=== PATIENT | male | born 1970 | race Caucasian/White ===

== ENCOUNTER 2021-05-07 11:33 | Outpatient (REF) | payer BC, SELFPAY ==
[2021-05-07 14:01] LABS: MANUAL DIFF FLAG NO
[2021-05-07 14:11] LABS: Basophils Percent Auto 0.3 % (0-2); Eosinophils Absolute Auto 0.1 X10*3/uL (0.0-0.4); Eosinophils Percent Auto 1.2 % (0-4); Hematocrit 44.8 % (42-52); Hemoglobin 15.4 g/dl (14.0-18.0); Imm Gran Abs Auto 0.03 X10*3/uL (0.00-0.03); Imm Gran Pct Auto 0.3 % (0.0-0.4); Lymphocytes Absolute Auto 2.9 X10*3/uL (1.2-4.9); Lymphocytes Percent Auto 31.9 % (20-40); Mean Corpuscular HGB Conc 34.4 g/dl (31.0-36.0); Mean Corpuscular Hemoglobin 33.3 pg (27.0-33.0); Mean Corpuscular Volume 96.8 fL (80-98); Mean Platelet Volume 9.5 fL (9.4-12.4); Monocytes Absolute Auto 0.5 X10*3/uL (0.1-1.2); Monocytes Percent Auto 5.9 % (2-11); Neutrophils Absolute Auto 5.4 X10*3/uL (2.0-8.3); Neutrophils Percent Auto 60.4 % (45-73); Platelet Count 277 X10*3/uL (160-400); Red Blood Count 4.63 X10*6/uL (4.60-5.80); Red Cell Distribution Width 11.6 % (11.0-16.0)
[2021-05-07 14:32] LABS: Alanine Aminotransferase 14 U/L (0-40); Albumin Level 4.4 g/dL (3.5-5.0); Alkaline Phosphatase 63 U/L (39-117); Anion Gap 13 (12-20); Aspartate Amino Transferase 22 U/L (5-37); Bilirubin Total 0.9 mg/dL (0.0-1.0); Blood Urea Nitrogen 9 mg/dL (9-16); Calcium 9.9 mg/dL (8.4-10.2); Carbon Dioxide 28 mmol/L (22-29); Chloride 101 mmol/L (96-108); Cholesterol 207 mg/dL; Estimated Glomerular Filt Rate > 60; Glucose Random 82 mg/dL (60-115); HDL Cholesterol 87 mg/dL; LDL Cholesterol Calculated 99 mg/dl; Potassium 4.2 mmol/L (3.3-5.1); Sodium 138 mmol/L (135-145); Total Protein 6.8 g/dL (6.5-8.0); Triglycerides 107 mg/dL
[2021-05-07 14:55] LABS: Folate 18.6 ng/mL (> or = 4.0); Vitamin B12 550 pg/mL (200-900)
[2021-05-07 15:01] LABS: Free T4 (Free Thyroxine) 0.89 ng/dL (0.71-1.85); Prostate Specific Antigen Scr 1.34 ng/mL (<0.05-4.0); Thyroid Stimulating Hormone 1.11 uIU/mL (0.32-4.0)
[2021-05-07 15:10] LABS: Erythrocyte Sedimentation Rate 2 MM/HR (0-15)
== END 2021-05-07 11:34 | disposition home or self-care (01) ==
LOC: HO.LAB 11:33
PROVIDERS: PCP Internal Medicine; Visit Provider Internal Medicine
DX: Z12.5 Encounter for screening for malignant neoplasm of prostate (principal); I10 Essential (primary) hypertension; E78.00 Pure hypercholesterolemia, unspecified
CPT/HCPCS: 36415; 80053; 80061; 82607; 82746; 84153; 84439; 84443; 85025; 85652

== ENCOUNTER 2021-09-03 14:15 | Outpatient (REF) | payer BC, SELFPAY ==
--- NOTE | ~2021-09-03 | MR_ITS ---
EXAMINATION: MR LUMBAR SPINE WITHOUT CONTRAST CLINICAL INFORMATION: Lower back pain. COMPARISON: Lumbar spine radiographs dated 12/03/2015 TECHNIQUE: MRI of the lumbar spine was obtained using routine sequences without contrast. FINDINGS: VERTEBRAL BODIES AND PARASPINAL STRUCTURES: The lumbar lordosis is maintained. There is Castellvi type IIA transitional anatomy at the lumbosacral junction. No acute fracture or subluxation. No loss of vertebral body height. Multilevel loss of intervertebral disc height with disc desiccation throughout the visualized lower thoracic and lumbar spine. Modic type II degenerative endplate changes at L1-L2 and L2-L3 as well as more minimally at L3-L4. No evidence of acute osseous injury. The visualized paraspinal soft tissues are unremarkable. CONUS MEDULLARIS AND CAUDA EQUINA: Normal, terminating at the level of T12. SPINAL LEVELS: T12-L1: Shallow broad-based disc bulge with a superimposed left paracentral/subarticular disc protrusion which abuts the exiting left T12 nerve root. Bilateral facet arthropathy with mild left neural foraminal stenosis. L1-L2: Mild broad-based disc bulge with a shallow right paracentral disc protrusion and associated annular fissuring. Bilateral facet arthropathy without significant central canal or neural foraminal stenosis. L2-L3: Shallow broad-based disc bulge with posterior annular fissuring as well as a superimposed left subarticular/extraforaminal disc protrusion which abuts the exiting left L2 nerve root. Bilateral facet arthropathy with bhsk-[id number] left and mild right neural foraminal stenosis. L3-L4: Broad-based disc bulge with posterior annular fissuring and superimposed bilateral subarticular disc protrusions which abut the exiting bilateral L3 nerve roots. Bilateral facet arthropathy and thickening of the ligamentum flavum with moderate bilateral neural foraminal stenosis. L4-L5: Broad-based disc bulge with posterior annular fissuring and bilateral facet arthropathy causing [id number] bilateral neural foraminal stenosis. L5-S1: Tiny posterior central disc protrusion. Mild bilateral facet arthropathy. No significant central canal or neural foraminal stenosis. MR/MR lumbar spine wo con IMPRESSION: 1. Broad-based disc bulge at L3-L4 with annular fissuring and bilateral subarticular disc protrusions which abut the exiting bilateral L3 nerve roots. In combination with bilateral facet arthropathy and thickening of the ligamentum flavum, this causes moderate bilateral neural foraminal stenosis. 2. Shallow broad-based disc bulge at L2-L3 with annular fissuring and a left subarticular/extraforaminal disc protrusion which abuts the exiting left L2 nerve root. In combination with bilateral facet arthropathy, this causes nklb-mh-ktzlzabt left and mild right neural foraminal stenosis. 3. Shallow broad-based disc bulge at T12-L1 with a left paracentral/subarticular disc protrusion which abuts the exiting left T12 nerve root. In combination with bilateral facet arthropathy, this causes mild left neural foraminal stenosis. 4. Broad-based disc bulge at L4-L5 with posterior annular fissuring and bilateral facet arthropathy which causes [id number]-wn-[id number] bilateral neural foraminal stenosis.
== END 2021-09-03 14:16 | disposition home or self-care (01) ==
LOC: HO.MRI 14:15
PROVIDERS: PCP Internal Medicine; Visit Provider Nurse Practitioner Family
DX: M54.50 Low back pain, unspecified (principal); G89.29 Other chronic pain
CPT/HCPCS: 72148

== ENCOUNTER 2021-09-24 15:00 | Outpatient (RCR) | payer BC, SELFPAY | END 2021-11-02 12:00 | disposition home or self-care (01) | LOC: HO.PTCHIC 15:00 | PROVIDERS: PCP Internal Medicine; Visit Provider Nurse Practitioner Family | DX: M54.50 Low back pain, unspecified (principal); G89.29 Other chronic pain | CPT/HCPCS: 97014; 97110; 97140; 97162 ==

== ENCOUNTER 2021-12-15 08:47 | Day surgery (SDC) | payer BC, SELFPAY ==
--- NOTE | 2021-12-14 10:39 | HO.ANESPROP2 ---
Documented by User: Ana Lr NP 12/14/21 10:39 HPI - Anesthesia Eval Consult details Narrative: 51yo M for Colonoscopy PMFSH Active Problems Active Problems: All Active Problems (Updated 11/03/21 @ 12:40 by Ada Flores MD) Lumbar degenerative disc disease (Acute) Generalized anxiety disorder (Acute) Epigastric pain (Acute) Hand numbness (Acute) Tobacco abuse (Acute) Hypertension (Acute) Overweight (BMI 25.0-29.9) (Acute) Past Medical History Medical History Degenerative disc disease Fracture of right tibia and fibula Hypertension Overweight (BMI 25.0-29.9) Right rib fracture Tobacco abuse Vitamin D deficiency Family History Family History Mother Lung cancer History of [facility] Father Prostate cancer Sister Auto immune neutropenia Sister No problems noted. Brother Heart attack Daughter No problems noted. Surgical History Surgical History Hx of colonoscopy S/P cervical spinal fusion S/P ORIF (open reduction internal fixation) fracture S/P surgical removal of pilonidal cyst Social History Social History Housing: Apartment Alcohol intake: current Alcohol intake frequency: does not drink Patient Tobacco Use Status: Current everyday Tobacco user Tobacco use type: Cigarette Cigarettes Per Day: 20 e-Cigarette/Vaping Use: Never Used Second Hand Smoke Exposure: Yes Use of substances other than those prescribed or required for medical reasons: No Are you DNR?: No Advance Directives: No Advance Directives Information Provided: Yes Advance Directives on File: No service: No Current occupational status: employed Meds Allergies Allergy/AdvReac Type Severity Reaction Status Date / Time hydrochlorothiazide Allergy Unknown Rash Verified 11/18/21 16:08 oxycodone [From OxyContin] Allergy Itching Verified 11/18/21 16:08 Home Medications Medication Instructions Recorded Confirmed Last Taken Type fagjdghh-gjx-kwxef acid 300 1 tab PO DAILY 08/24/21 11/18/21 Unknown History mcg-lycopene 600 mcg-lutein 300 mcg tablet (Centrum Silver Men) Exam Exam Date and Time: December 14, 2021 1039 Assessment and Plan Assessment Anesthesia Assessment: Chart Reviewed Documented by User: Maria E Armstrong MD 12/15/21 09:53 PENDING SALE TO [facility] Past Medical History Medical History Degenerative disc disease Fracture of right tibia and fibula Hypertension Overweight (BMI 25.0-29.9) Right rib fracture Tobacco abuse Vitamin D deficiency Functional capacity: independent ambulation Family History Family History Mother Lung cancer History of [facility] Father Prostate cancer Sister Auto immune neutropenia Sister No problems noted. Brother Heart attack Daughter No problems noted. Family history of problems with anesthesia: No Surgical History Surgical History Hx of colonoscopy S/P cervical spinal fusion S/P ORIF (open reduction internal fixation) fracture S/P surgical removal of pilonidal cyst History of Problems with Anesthesia: No Social History Social History Housing: Apartment Alcohol intake: current Alcohol intake frequency: does not drink Patient Tobacco Use Status: Current everyday Tobacco user Tobacco use type: Cigarette Cigarettes Per Day: 20 e-Cigarette/Vaping Use: Never Used Second Hand Smoke Exposure: Yes Use of substances other than those prescribed or required for medical reasons: No Are you DNR?: No Advance Directives: No Advance Directives Information Provided: Yes Advance Directives on File: No service: No Current occupational status: employed Meds Allergies Allergy/AdvReac Type Severity Reaction Status Date / Time hydrochlorothiazide Allergy Unknown Rash Verified 11/18/21 16:08 oxycodone [From OxyContin] Allergy Itching Verified 11/18/21 16:08 Home Medications Medication Instructions Recorded Confirmed Last Taken Type rotpxjvt-nte-ficqm acid 300 1 tab PO DAILY 08/24/21 11/18/21 Unknown History mcg-lycopene 600 mcg-lutein 300 mcg tablet (Centrum Silver Men) Exam Airway Mallampati Class: III TM Dist: >3cm Neck ROM: Full Heart: RRR Lungs: CTA Assessment and Plan Final Anesthetic Review Family History of Problems with Anesthesia: No History of Problems with Anesthesia: No ASA Class: II Final Preanesthetic Review: No Changes in Pt Med Stat, Meds/Allgs Chart Reviewed, Consent Obtained/Reviewed and Anes Risks/Benef Reviewed Patient Risk: Low Procedure Risk: Low Anesthetic Plan Anesthetic Plan: MAC: Disposition: Standard PACU
[2021-12-15 08:54] VITALS: BMI 29.5
[2021-12-15 09:06] VITALS: BP 129/80; PULSE 61; RESP 16; TEMP 37.4; O2SAT 100
[2021-12-15] MEDS: Lactated Ringers 1,000 ML 100 ML IVCONT (09:10)
--- NOTE | 2021-12-15 09:37 | MHC.SHP ---
Pre-Procedural Eval Section A Date of Service: 12/15/21 Section B Chief Complaint: Hemorrhage of Anus and Rectum Details of Present Illness: See H&P no changes Relevant Family History (Specify if Yes): No Relevant Social History: None Present Medications: see Short Stay Collaborative assessment Medical History: No relevant PMH Allergies: Allergies Allergy/AdvReac Type Severity Reaction Status Date / Time hydrochlorothiazide Allergy Unknown Rash Verified 11/18/21 16:08 oxycodone [From OxyContin] Allergy Itching Verified 11/18/21 16:08 Review of Systems Sugical H&P ROS: Negative: Constitution, Cardiovascular, Respiratory, Neurological, Psychiatric, Hem-Onc, Allergic/Immunologic, Gastrointestinal, Genitourinary, Musculoskeletal, Integumentary, Endocrine and Eyes/Ears/Nose/Throat Exam Surgical H&P Exam: Normal: HEENT, Normal: Heart, Normal: Lungs, Normal: Extremities, Normal: Abdomen, Normal: Skin and Normal: Neurological Plan Diagnosis/Plan: Unchanged I have reviewed the history and physical and performed a pertinent physical examination on my patient. No changes have occurred unless specified.
[2021-12-15 10:03] VITALS: BP 109/69; PULSE 79; RESP 16; TEMP 36.6; O2SAT 95
--- NOTE | 2021-12-15 10:05 | P.BOP_ITS ---
Brief Operative Note Date of Service: 12/15/21 Pre-op diagnosis: rectal bleeding Post-op diagnosis: same Procedure: colonoscopy Surgeon: Chente Prasad Anesthesia: MAC Was an [employer] Salesperson used for this Procedure?: No Estimated blood loss (mL): 0 Pathology: none sent Condition: stable Disposition: PACU
[2021-12-15 10:17] VITALS: BP 104/74; PULSE 76; RESP 16; TEMP 36.2; O2SAT 97
--- NOTE | 2021-12-15 10:26 | HO.POSTANES ---
Post Anesthesia Evaluation Post Anesthesia Evaluation Vital Signs: Vital Signs Temp Pulse Resp BP Pulse Ox 12/15/21 10:17 97.2 F 76 16 104/74 97 12/15/21 10:03 97.8 F 79 16 109/69 95 12/15/21 09:06 99.4 F 61 16 129/80 100 Anesthesia: Monitored Mental Status: Awake Pain Control: Satisfactory Nausea/Vomiting: None Hydration: Adequate Anesthesia-Related Issues: No Anes. Related Issues
--- NOTE | 2021-12-15 10:30 | OP_ITS ---
SURGEON: Chente Prasad MD INDICATIONS: Rectal bleeding and prior history of adenomatous colon polyps. PREOPERATIVE DIAGNOSIS: POSTOPERATIVE DIAGNOSIS: PROCEDURE PERFORMED: ESTIMATED BLOOD LOSS: COMPLICATIONS: ANESTHESIA: ASSISTANTS: SPECIMENS: PROCEDURE: Colonoscopy to the terminal ileum. MEDICATIONS: Monitored anesthesia care. DESCRIPTION OF PROCEDURE: History and physical performed. The risks and benefits of the procedure were explained to the patient. Informed consent was obtained. The patient was placed in the left lateral decubitus position. A digital rectal exam was performed and was found to be normal. The Olympus pediatric video colonoscope was introduced into the rectum and advanced to the cecum without difficulty. The cecum was identified by transillumination, palpation, and identification of ileocecal valve. Examination was performed. The scope was removed. He tolerated the procedure well and was taken to recovery in stable condition. FINDINGS: The terminal ileum was examined and appeared normal. The visualized colonic mucosa was normal. The quality of prep was good. No polyps were identified. Retroflexed examination showed small internal hemorrhoids. IMPRESSION: Normal colonoscopy. RECOMMENDATION: 1. Follow up as needed. 2. Repeat colonoscopy is recommended in 10 years. MD AVTAR Wren/SHANNEN / [id number]
== END 2021-12-15 10:59 | disposition home or self-care (01) ==
PROVIDERS: PCP Internal Medicine; Visit Provider Internal Medicine Gastroenterology
PROC: 0DJD8ZZ Inspection of Lower Intestinal Tract, Via Natural or Artificial Opening Endoscopic (ICD-10-PCS; CPT 45378; principal; 2021-12-15 10:00)
DX: K62.5 Hemorrhage of anus and rectum (principal); Z86.010 Personal history of colon polyps; K64.8 Other hemorrhoids; I10 Essential (primary) hypertension; Z79.1 Long term (current) use of non-steroidal anti-inflammatories (NSAID); Z79.899 Other long term (current) drug therapy; Z88.8 Allergy status to other drugs, medicaments and biological substances; F17.210 Nicotine dependence, cigarettes, uncomplicated
CPT/HCPCS: 45378

== ENCOUNTER 2021-12-23 09:15 | Outpatient (REF) | payer BC, SELFPAY ==
--- NOTE | 2021-12-23 09:17 | EMG_ITS ---
This is a 51-year-old man who is 5 years status post cervical fusion and diskectomy, comes in with bilateral weakness and tingling in the upper extremities, left more than right, particularly in the last 1 year. PHYSICAL EXAMINATION: On examination, he is alert, oriented with normal intellectual function. Muscle tone and strength are normal. No atrophy or fasciculations. No Tinel or Phalen sign. IMPRESSION: Rule out cervical radiculopathy. Nerve conduction EMG study: Normal electrodiagnostic study of both upper extremities with no evidence of carpal tunnel syndrome or nerve entrapment. Normal EMG of the left C5-T1 innervated muscles. MD MAGDALENE Bush/SHANNEN / [id number]
== END 2021-12-23 09:16 | disposition home or self-care (01) ==
LOC: HO.NEURO 09:15
PROVIDERS: PCP Internal Medicine; Visit Provider Internal Medicine
DX: R20.0 Anesthesia of skin (principal)
CPT/HCPCS: 95885; 95913

== ENCOUNTER 2022-02-24 15:50 | Outpatient (REF) | payer BC, SELFPAY ==
--- NOTE | ~2022-02-24 | MR_ITS ---
MR CERVICAL SPINE WITHOUT IV CONTRAST CLINICAL INFORMATION: Radiculopathy. COMPARISON: Cervical spine MRI July 12, 2019. TECHNIQUE: MRI of the cervical spine was obtained using routine sequences without contrast. FINDINGS: Redemonstrated postoperative changes following ACDF at the C5-C7 levels. Straightening of the cervical lordosis. Mild anterior subluxation of C3 on C4 and mild retrosubluxation of C4 on C5 unchanged. The vertebral body heights are maintained. Nonsurgical disc volumes are preserved. There is no bone marrow edema. There are no acute fractures. The craniocervical junction is unremarkable. The partially imaged intracranial compartment is unremarkable. Cervical arterial flow voids are maintained. There are no significant extraspinal soft tissue findings. There are no cord signal changes accounting for artifact. C2-C3: Shallow central disc protrusion mildly narrows the central canal. Uncovertebral joint spurring and facet arthropathy result in mild left-sided foraminal encroachment. C3-C4: Mild anterior subluxation. A shallow central disc protrusion and ligamentum flavum thickening mildly narrow the central canal. Advanced uncovertebral joint hypertrophy and hypertrophic facet arthropathy result in severe right-sided foraminal stenosis. Findings progressed. C4-C5: Mild retrosubluxation. Shallow central disc protrusion and ligamentum flavum thickening result in mild/moderate central canal stenosis. Advanced uncovertebral joint hypertrophy and hypertrophic facet arthropathy result in moderate to severe left and moderate right foraminal stenosis. Findings progressed. C5-C6: ACDF changes. Diffuse disc osteophyte mildly narrows the central canal. Advanced uncovertebral joint hypertrophy and hypertrophic facet arthropathy result in similar moderate to severe bilateral foraminal stenosis. C6-C7: ACDF changes. Diffuse osteophytic ridging mildly narrows the central canal. Advanced uncovertebral joint hypertrophy and hypertrophic facet arthropathy result in similar moderate to severe right-sided foraminal stenosis. C7-T1: Disc contour is normal. Bilateral facet arthropathy. No central canal stenosis and no foraminal stenosis. MR/MR cervical spine wo con IMPRESSION: - At C3-C4, a shallow central disc protrusion anterior subluxation continue to mildly narrow the central canal and progressive spondylitic changes result in worsening severe right-sided foraminal stenosis. - At C4-C5, mild retrosubluxation and a shallow central disc protrusion result in worsening mild to moderate central canal stenosis and progressive spondylitic changes result in worsening moderate to severe left and moderate right foraminal stenosis. - Redemonstrated postoperative changes status post ACDF at the C5-C7 levels. Spondylitic changes result in persistent moderate to severe bilateral foraminal stenosis at C5-C6 and moderate to severe right-sided foraminal stenosis at C6-C7.
== END 2022-02-24 15:51 | disposition home or self-care (01) ==
LOC: HO.MRI 15:50
PROVIDERS: Visit Provider Internal Medicine
DX: M54.12 Radiculopathy, cervical region (principal)
CPT/HCPCS: 72141

== ENCOUNTER → 2022-04-14 12:30 | Outpatient (BNVA) | payer BC, SELFPAY | PROVIDERS: PCP Internal Medicine; Referring Provider Internal Medicine; Visit Provider Internal Medicine | DX: R00.2 Palpitations (principal); I49.1 Atrial premature depolarization; I10 Essential (primary) hypertension; Z82.49 Family history of ischemic heart disease and other diseases of the circulatory system; Z72.0 Tobacco use | CPT/HCPCS: 93005 ==

== ENCOUNTER 2022-05-25 09:29 | Outpatient (REF) | payer BC, SELFPAY ==
[2022-05-25 11:25] LABS: MANUAL DIFF FLAG NO
[2022-05-25 11:34] LABS: Basophils Percent Auto 0.4 % (0-2); Eosinophils Absolute Auto 0.1 X10*3/uL (0.0-0.4); Eosinophils Percent Auto 1.4 % (0-4); Hematocrit 45.9 % (42.0-52.0); Imm Gran Abs Auto 0.02 X10*3/uL (0.00-0.03); Imm Gran Pct Auto 0.3 % (0.0-0.4); Lymphocytes Absolute Auto 2.1 X10*3/uL (1.2-4.9); Lymphocytes Percent Auto 29.3 % (20-40); Mean Corpuscular HGB Conc 34.9 g/dl (31.0-36.0); Mean Corpuscular Hemoglobin 33.7 pg (27.0-33.0); Mean Corpuscular Volume 96.6 fL (80.0-98.0); Mean Platelet Volume 9.2 fL (9.4-12.4); Monocytes Absolute Auto 0.6 X10*3/uL (0.1-1.2); Monocytes Percent Auto 8.3 % (2-11); Neutrophils Absolute Auto 4.4 x10*3/uL (2.0-8.3); Neutrophils Percent Auto 60.3 % (45-73); Platelet Count 288 X10*3/uL (160-400); Red Blood Count 4.75 X10*6/uL (4.60-5.80); Red Cell Distribution Width 11.7 % (11.0-16.0); White Blood Count 7.3 X10*3/uL (4.8-10.8)
[2022-05-25 12:01] LABS: Free T4 (Free Thyroxine) 0.83 ng/dL (0.71-1.85); Prostate Specific Antigen Scr 1.71 ng/mL (<0.05-4.0); Thyroid Stimulating Hormone 1.07 uIU/mL (0.32-4.0)
[2022-05-25 12:06] LABS: Alanine Aminotransferase 22 U/L (0-40); Albumin Level 4.5 g/dL (3.5-5.0); Alkaline Phosphatase 66 U/L (39-117); Anion Gap 12 (12-20); Aspartate Amino Transferase 24 U/L (5-37); Blood Urea Nitrogen 9 mg/dL (9-16); Calcium 9.6 mg/dL (8.4-10.2); Carbon Dioxide 27 mmol/L (22-29); Chloride 103 mmol/L (96-108); Cholesterol 230 mg/dL; Estimated Glomerular Filt Rate > 60; Glucose Random 105 mg/dL (60-115); HDL Cholesterol 102 mg/dL; LDL Cholesterol Calculated 115 mg/dl; Potassium 4.7 mmol/L (3.3-5.1); Sodium 137 mmol/L (135-145); Total Protein 7.1 g/dL (6.5-8.0); Triglycerides 65 mg/dL
[2022-05-25 12:32] LABS: Folate > 20.0 ng/mL (> or = 4.0); Vitamin B12 533 pg/mL (200-900)
== END 2022-05-25 09:30 | disposition home or self-care (01) ==
LOC: HO.HMGCLDS 09:29
PROVIDERS: Visit Provider Internal Medicine
DX: Z12.5 Encounter for screening for malignant neoplasm of prostate (principal); I10 Essential (primary) hypertension; E78.00 Pure hypercholesterolemia, unspecified
CPT/HCPCS: 36415; 80053; 80061; 82607; 82746; 84153; 84439; 84443; 85025

== ENCOUNTER → 2022-05-26 13:35 | Outpatient (REF) | payer BC, SELFPAY ==
--- NOTE | 2022-05-26 13:38 | HM_ITS ---
Conclusion: 1. Patient was monitored for total period of 3 days and 12 hours 2. Baseline rhythm was normal sinus rhythm with average heart of 80 beats per minute 3. No significant pauses or bradycardia noted 4. Total of 46,906 PACs accounting for 12.9 % of total beats accounting for frequent PACs 5. 2 patient reported events correlated with isolated PACs MTDD
--- NOTE | 2022-05-26 13:39 | CA_ITS ---
Transthoracic Echocardiogram Patient (Last, First, Middle): Rhys Montilla A Gender: Male Date of : 1970 Age: 52 Procedure Date: 05/26/2022 Procedure Type: Transthoracic Echocardiogram Location: OP Height: 175.26 cm Weight: 86.18 kg BSA: 2.02 m2 Heart Rate: bpm BP: 110 / 72 mmHg Web Design Specialist: TO Referring MD: Jad Granda MD Ingot Stripper: Gibran Randhawa MD Symptoms: R00.2 - Palpitations Study Quality: Good ECG Rhythm: Sinus Conclusions: - Essentially normal study Findings Left Ventricle Normal left ventricular size, thickness, and systolic function. The visually estimated ejection fraction is between 60-65%. Spectral Doppler is indicative of a normal filling pattern. Right Ventricle Normal right ventricular cavity size and systolic function. Atria Both atria are normal in size. There is no evidence of interatrial shunt. Aortic Valve Normal aortic valve structure and function. There is no aortic valve stenosis. There is no aortic valve regurgitation. Mitral Valve Normal mitral valve structure and function. There is trace mitral valve regurgitation. There is no mitral valve stenosis. Pulmonic Valve The pulmonic valve is likely normal. Tricuspid Valve Normal tricuspid valve structure. There is trace tricuspid valve regurgitation. The right ventricular systolic pressure is normal. The right ventricular systolic pressure is 20 mmHg. Normal right atrial pressure. There is no evidence of pulmonary hypertension. Great Vessels All visible segments of the aorta are normal in size. The pulmonary artery was not well visualized. Venous The inferior vena cava is normal in size and collapses greater than 50% with inspiration. Pericardium/Pleural There is a trivial loculated pericardial effusion overlying the left ventricle. Prior Study Comparison No prior study available for comparison. Measurements 2D Linear Measurements IVSd: 0.84 0.6-0.9/0.6-1.0 cm LVIDd: 5.17 3.9-5.3/4.2-5.9 cm LVIDd Index: 2.56 2.4-3.2/2.2-3.1 cm/m2 LVIDs: 2.63 2.0-3.6 cm LVPWd: 0.73 0.7-1.1 cm LA Diam: 3.40 2.7-3.8/3.0-4.0 cm LAIDs Index: 1.68 1.5-2.3 cm/m2 LV Mass: 175.00 67-162/88-224 g LV Mass Index: 86.63 43-95/49-115 g/m2 LVOT Diam: 2.10 3.0+(-)1.3 cm 2D Systolic Function EF 4C: 64.40 >55% EF 2C: 65.40 >55% EF BiP: 64.80 >55% Mitral Valve MV Pk E: 0.96 MV PK A: 0.75 MV Decel Time: 210.00 E/A: 1.30 E'Lateral: 16.80 E'Medial: 10.00 E/E' Med: 9.60 E/E' Lat: 5.70 PHT: 61.00 MVA PHT: 3.61 Decel [place]: 4.59 Aortic Valve AoV Pk Miguel A: 1.66 AoV Mn Miguel A: 1.11 AoV VTI: 0.32 AoV Pk Grad: 11.00 Aov Mn Grad: 6.00 ADITYA Cont.VTI: 2.18 LVOT LVOT Pk Miguel A: 1.11 LVOT Mn Miguel A: 0.65 LVOT VTI: 0.20 LVOT Pk Grad: 5.00 LVOT Mn Grad: 2.00 LVOT Diam: 2.10 LVOT Area: 3.46 Diastolic Function MV Pk E: 0.96 MV Pk A: 0.75 E/A: 1.30 E'Medial: 10.00 E/E' Med: 9.60 E' Laterial: 16.80 E/E' Lat: 5.70 Right Ventricle TAPSE (mm): 23.80 TVS' Miguel A: 14.40 Tricuspid Valve TR Pk Miguel A: 2.04 TR Pk Grad: 17.00 RA Press: 3.00 RVSP: 20.00 Great Vessels Aorta Sinus of Valsalva: 3.70 2.0-3.[address] [place]: 2.88 1.7-3.4 cm Ao Asc: 3.80 2.1-3.4 cm Updated in Other Vendor System with Status of Final Gibran Randhawa MD electronically signed on 05/27/2022 11:24:05 AM with status of Final
== END ==
LOC: HO.CARD 13:35
PROVIDERS: PCP Internal Medicine; Visit Provider Internal Medicine
DX: R00.2 Palpitations (principal)
CPT/HCPCS: 93242; 93306

== ENCOUNTER → 2022-07-14 12:47 | Outpatient (BNVA) | payer BC, SELFPAY | PROVIDERS: PCP Internal Medicine; Referring Provider Internal Medicine; Visit Provider Internal Medicine | DX: I49.1 Atrial premature depolarization (principal); I10 Essential (primary) hypertension; Z72.0 Tobacco use; Z82.49 Family history of ischemic heart disease and other diseases of the circulatory system | CPT/HCPCS: 93005 ==

== ENCOUNTER 2023-06-23 08:49 | Outpatient (REF) | payer BC, SELFPAY ==
--- NOTE | 2023-06-23 08:51 | EMG_ITS ---
Bilateral median and ulnar motor and sensory studies were performed. Bilateral radial sensory studies were performed. Median and lateral antecubital sensory studies were performed, and paraspinal muscles were tested with a needle. IMPRESSION: Mild bilateral ulnar neuropathy across cubital tunnel. MD TAYLOR Erazo/SHANNEN / [id number]
== END 2023-06-23 08:50 | disposition home or self-care (01) ==
LOC: HO.NEURO 08:49
PROVIDERS: PCP Internal Medicine; Visit Provider Internal Medicine
DX: R20.0 Anesthesia of skin (principal); R20.2 Paresthesia of skin
CPT/HCPCS: 95860; 95886; 95907; 95913

== ENCOUNTER 2023-07-04 13:28 | Outpatient (REF) | payer BC, SELFPAY ==
[2023-07-04 16:54] LABS: MANUAL DIFF FLAG NO
[2023-07-04 17:05] LABS: Basophils Percent Auto 0.4 % (0-2); Eosinophils Absolute Auto 0.1 X10*3/uL (0.0-0.4); Eosinophils Percent Auto 0.6 % (0-4); Hematocrit 41.5 % (42.0-52.0); Hemoglobin 14.8 g/dl (14.0-18.0); Imm Gran Abs Auto 0.03 X10*3/uL (0.00-0.03); Imm Gran Pct Auto 0.3 % (0.0-0.4); Lymphocytes Absolute Auto 2.2 X10*3/uL (1.2-4.9); Lymphocytes Percent Auto 22.5 % (20-40); Mean Corpuscular HGB Conc 35.7 g/dl (31.0-36.0); Mean Corpuscular Hemoglobin 34.3 pg (27.0-33.0); Mean Corpuscular Volume 96.1 fL (80.0-98.0); Mean Platelet Volume 9.1 fL (9.4-12.4); Monocytes Absolute Auto 0.7 X10*3/uL (0.1-1.2); Monocytes Percent Auto 7.3 % (2-11); Neutrophils Absolute Auto 6.8 x10*3/uL (2.0-8.3); Neutrophils Percent Auto 68.9 % (45-73); Platelet Count 248 X10*3/uL (160-400); Red Blood Count 4.32 X10*6/uL (4.60-5.80); Red Cell Distribution Width 11.5 % (11.0-16.0); White Blood Count 9.9 X10*3/uL (4.8-10.8)
[2023-07-04 17:29] LABS: Estimated Average Glucose 97 mg/dL
[2023-07-04 17:33] LABS: Alanine Aminotransferase 19 U/L (0-40); Albumin Level 4.4 g/dL (3.5-5.0); Alkaline Phosphatase 65 U/L (39-117); Anion Gap 11 (12-20); Aspartate Amino Transferase 21 U/L (5-37); Bilirubin Total 0.9 mg/dL (0.0-1.0); Blood Urea Nitrogen 10 mg/dL (9-16); Calcium 9.9 mg/dL (8.4-10.2); Carbon Dioxide 26 mmol/L (22-29); Chloride 103 mmol/L (96-108); Cholesterol 218 mg/dL (<200); Estimated Glomerular Filt Rate > 60; Glucose Random 93 mg/dL (60-115); HDL Cholesterol 105 mg/dL (>40); LDL Cholesterol Calculated 99 mg/dL (<100); Potassium 3.9 mmol/L (3.3-5.1); Sodium 136 mmol/L (135-145); Total Protein 7.1 g/dL (6.5-8.0); Triglycerides 70 mg/dL (<150)
[2023-07-04 17:38] LABS: Free T4 (Free Thyroxine) 0.88 ng/dL (0.71-1.85); Thyroid Stimulating Hormone 1.96 uIU/mL (0.32-4.0)
[2023-07-04 17:53] LABS: Folate 14.8 ng/mL (> or = 4.0); Prostate Specific Antigen Scr 1.87 ng/mL (<0.05-4.0); Vitamin B12 480 pg/mL (200-900)
== END 2023-07-04 13:29 | disposition home or self-care (01) ==
LOC: HO.HMGCLDS 13:28
PROVIDERS: PCP Internal Medicine; Visit Provider Internal Medicine
DX: E78.00 Pure hypercholesterolemia, unspecified (principal); I10 Essential (primary) hypertension; Z12.5 Encounter for screening for malignant neoplasm of prostate; R73.02 Impaired glucose tolerance (oral)
CPT/HCPCS: 36415; 80053; 80061; 82607; 82746; 83036; 84153; 84439; 84443; 85025

== ENCOUNTER → 2023-07-08 13:15 | Outpatient (REF) | payer BC, SELFPAY ==
--- NOTE | 2023-07-08 13:17 | HM_ITS ---
* Total monitoring time about 3 days. * Underlying rhythm is sinus. Average ventricular rate 92/Min. Range 71 to 162/Min. * About 24% of the time, rate > 100/Min. * Frequent supraventricular ectopy with a burden of 4.3%. * No significant pauses or AV blocks. * No patient markers or events in diary. MTDD
== END ==
LOC: HO.CARD 13:15
PROVIDERS: PCP Internal Medicine; Visit Provider Internal Medicine
DX: I49.1 Atrial premature depolarization (principal); R00.2 Palpitations
CPT/HCPCS: 93242

== ENCOUNTER → 2023-07-08 13:17 | Outpatient (BNV) | payer BC, SELFPAY | PROVIDERS: PCP Internal Medicine; Visit Provider Internal Medicine | DX: I47.1 Supraventricular tachycardia (principal) | CPT/HCPCS: 93244 ==

== ENCOUNTER 2023-07-13 13:18 | Outpatient (AMB) | payer BC, SELFPAY ==
[2023-07-13 13:23] VITALS: BP 144/100; PULSE 80; O2SAT 98; BMI 27.9
--- NOTE | 2023-07-13 13:23 | A.OFFPC_ITS ---
Vital Signs 07/13/23 13:23 Height 5 ft 9 in Weight 189 lb 2 oz BMI 27.9 BP 144/100 H Blood Pressure Location Lt brachial Position Sitting Pulse 80 Pulse Source Pulse Oximeter Pulse Oximetry (%) 98 Oxygen Delivery Method Room Air Intake Visit Reasons: 2 month f/u Intake Note: Pt is here for HTN F/U. 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 Accompanied by: Self / Same As Patient Allergies hydrochlorothiazide Allergy (Unknown, Verified 07/13/23 13:29) Rash oxycodone [From OxyContin] Allergy (Verified 07/13/23 13:29) Itching Medication List - Last Reconciled 07/13/23 by Ada Flores MD bupropion HCl (Wellbutrin SR) 150 mg PO BID cholecalciferol (vitamin D3) 50 mcg PO DAILY epinephrine (EpiPen 2-Vic) 0.3 mg (0.3 mL) IM Q10M PRN lisinopril 5 mg PO DAILY 90 days [id number] mcg (Centrum Silver Men) 1 tab PO DAILY Tobacco use date assessed: 05/12/23 Dental Screening Dental Screen Date: 07/13/23 Did you have a dental visit in the last 12 months?: Yes Did you have a dental problem in the last 6 months where you did not have access to dental care?: No Was dental information given to patient?: Patient has dentist HPI 2 month f/u HPI Details 53-year-old overweight male smoker with a history of hypertension impaired glucose tolerance and Katie anxiety disorder last seen in this April 2023 physical exam done and was advised blood work patient also had some numbness of the hands and a nerve conduction test was study. Because of smoking patient was advised to be and ruled in the lung cancer screening program. Patient was placed on bupropion to help with anxiety colonoscopy is up-to-date. [facility] Medical History (Updated 06/24/23 @ 12:27 by Ada Flores MD) Bilateral hand numbness Degenerative disc disease Fracture of right tibia and fibula Hypertension Nicotine dependence, cigarettes, uncomplicated Overweight (BMI 25.0-29.9) Right rib fracture Tobacco abuse Tubular adenoma of colon Vitamin D deficiency Surgical History (Reviewed 07/13/23 @ 13:29 by Ysabel Hammond [facility]) History of cervical spinal surgery History of colonoscopy History of excision of pilonidal cyst History of surgery on lower extremity Family History Mother Lung cancer History of SIADH Father Prostate cancer Sister Auto immune neutropenia Sister No problems noted. Brother Heart attack Daughter No problems noted. Maternal Uncle CAD (coronary artery disease) Social History Housing: Apartment Alcohol intake: current Alcohol intake frequency: does not drink Patient Tobacco Use Status: Current everyday Tobacco user Tobacco use type: Cigarette Cigarettes Per Day: 20 Years Smoked: pack a day e-Cigarette/Vaping Use: Never Used Second Hand Smoke Exposure: Yes service: No Current occupational status: employed Cognitive needs: No Hearing needs: No Vision needs: No Questionnaire Thrive Questionnaire Date Thrive assessed: 05/12/23 SHALONDA-7 AMB Questionnaire SHALONDA-7 Date SHALONDA - 7 assessed: 05/12/23 Source: Developed by Drs. Riley Fair, Miracle Ruiz, Bear Donato and colleagues, with an educational mani from [email or web address]. Physical exam (Primary Care) Vital Signs: Last Vital Signs Pulse 80 07/13/23 13:23 BP 144/100 H 07/13/23 13:23 Pulse Ox 98 07/13/23 13:23 Oxygen Delivery Method Room Air 07/13/23 13:23 BMI result Body Mass Index 27.9 Tobacco/Smoking Status: Tobacco use Status Tobacco use date assessed 05/12/23 07/13/23 13:29 Patient Tobacco Use Status Current everyday Tobacco 07/13/23 13:29 Tobacco use type Cigarette 07/13/23 13:29 e-Cigarette/Vaping Use Never Used 07/13/23 13:29 Thrive Assessment: Date of Thrive Assessment Date Thrive assessed 05/12/23 07/13/23 13:29 Const General: alert; No acute distress Eyes Conjunctivae: conjunctivae normal Resp Auscultation: clear to auscultation bilaterally Cardio Rate: regular rate Rhythm: regular rhythm GI Inspection: Yes normal to inspection Extrem General: Yes normal to inspection and No edema Assessment and Plan Assessment & Plan (1) Ulnar neuropathy: Comment: June 2023 mild bilateral ulnar neuropathy Code(s): G56.20 - Lesion of ulnar nerve, unspecified upper limb Plan: Nerve conduction test done June 2023 showing only mild bilateral ulnar neuropathy admits to sleeping on his abdomen with the elbow leaning on the bed (2) Nicotine dependence, cigarettes, uncomplicated: Comment: (male, >50yo, +HTN, smoker, palpitations at night - questions if worked up for LENY) Code(s): F17.210 - Nicotine dependence, cigarettes, uncomplicated Plan: Patient is strongly advised to stop smoking (3) Impaired fasting blood sugar: Code(s): R73.01 - Impaired fasting glucose Plan: Decrease the amount of carbohydrate intake, pasta, bread, rice and potatoes are all sugar and that is aside from all the sweet stuff, remember that fruits are good but they are Sweet also. (4) Generalized anxiety disorder: Code(s): F41.1 - Generalized anxiety disorder Plan: Continue with bupropion (5) Hypertension: Code(s): I10 - Essential (primary) hypertension Qualifiers: Hypertension type: primary hypertension Qualified Code(s): I10 - Essential (primary) hypertension Plan: Continue with blood pressure medication. Decrease salt intake and exercise patient on lisinopril 5 mg once a day. Stressed to the patient the importance of getting blood pressure under control. (6) Overweight (BMI 25.0-29.9): Code(s): E66.3 - Overweight Plan: Diet and exercise Medications: New blood pressure monitor (Blood Pressure Kit) As directed 1 ea 0RF I10 - Essential (primary) hypertension Coding Level of Care Code Est Pt Level 4 (58601) Diagnoses Ulnar neuropathy G56.20 Nicotine dependence, cigarettes, uncomplicated F17.210 Impaired fasting blood sugar R73.01 Generalized anxiety disorder F41.1 Hypertension I10 Hypertension type: primary hypertension Overweight (BMI 25.0-29.9) E66.3
== END 2023-07-13 14:16 | disposition home or self-care (01) ==
PROVIDERS: PCP Internal Medicine; Visit Provider Internal Medicine
DX: I10 Essential (primary) hypertension (principal); G56.20 Lesion of ulnar nerve, unspecified upper limb; F17.210 Nicotine dependence, cigarettes, uncomplicated; R73.01 Impaired fasting glucose; F41.1 Generalized anxiety disorder; E66.3 Overweight
CPT/HCPCS: 99214

== ENCOUNTER 2023-07-15 12:59 | Outpatient (AMB) | payer BC, SELFPAY ==
--- NOTE | 2023-07-15 08:04 | A.OFFVIS_ITS ---
Intake Intake Visit Reasons: LDCT SD Allergies hydrochlorothiazide Allergy (Unknown, Verified 07/13/23 13:29) Rash oxycodone [From OxyContin] Allergy (Verified 07/13/23 13:29) Itching HPI LDCT SD HPI Details Initial visit for this 53yo smoker with a 30PYH. Patient has been smoking since age 20 for 33 years at 1ppd. . Notes occasional marijuana use. Denies second hand smoke exposure. Denies exposure to chemicals or substances like asbestos. . Reports family history of lung cancer. Mom had lobectomy at 76. Denies personal history of cancers. Denies chest CT in last year. . Denies recent travel outside the [place]. Has been to [place] and [place]. Denies recent respiratory illness or recent hospitalization for respiratory issues. Denies testing positive for COVID. Admits receiving COVID Vaccine. x 3. . Denies fever, chills, new/worsening cough, hemoptysis, hoarseness or dysphagia. Denies significant chest pain, significant dyspnea or unintentional weight loss. Patient Lung Cancer Screening Questionnaire reviewed with patient by provider. Has been worked up for palpitations. Discuss risk factors for LENY and advise patient discuss with PCP. . Shared Decision Making Completed. Patient meets criteria. Discussed in detail with patient, the risk vs benefit of LDCT screening. Patient consents to proceed with scan. Discussed smoking cessation. [facility] Medical History (Updated 07/15/23 @ 13:18 by Cahro Landers PA-C) Bilateral hand numbness Degenerative disc disease Fracture of right tibia and fibula Hypertension Nicotine dependence, cigarettes, uncomplicated Overweight (BMI 25.0-29.9) Right rib fracture Tobacco abuse Tubular adenoma of colon Vitamin D deficiency Surgical History History of cervical spinal surgery History of colonoscopy History of excision of pilonidal cyst History of surgery on lower extremity Family History Mother Lung cancer History of SIADH Father Prostate cancer Sister Auto immune neutropenia Sister No problems noted. Brother Heart attack Daughter No problems noted. Maternal Uncle CAD (coronary artery disease) Social History (Updated 07/15/23 @ 13:09 by Charo Landers PA-C) Housing: Apartment Alcohol intake: current Alcohol intake frequency: does not drink Patient Tobacco Use Status: Current everyday Tobacco user Tobacco use type: Cigarette Cigarettes Per Day: 20 Years Smoked: onset 20yo, 1ppd x 33yrs, 30pyh e-Cigarette/Vaping Use: Never Used Second Hand Smoke Exposure: Yes service: No Current occupational status: employed Cognitive needs: No Hearing needs: No Vision needs: No Assessment & Plan Assessment & Plan (1) Nicotine dependence, cigarettes, uncomplicated: Comment: (current smoker - onset 20yo, 1ppd x 33yrs, 30pyh, + fam hx lung CA mom) Code(s): F17.210 - Nicotine dependence, cigarettes, uncomplicated Plan: - SDM visit completed today in office. - Patient meets criteria for LDCT for lung cancer screening purposes and is asymptomatic. - Smoking cessation counseling offered. Patients can always call [phone]. - Will arrange for a LDCT scan of the chest for screening purposes at [facility]. - Risks, benefits, and alternatives were discussed in detail and the patient agrees to proceed. - Risks discussed include but are not limited to: radiation exposure, anxiety during testing and while awaiting results, false negatives, false positives and possibility of additional intervention such as further imaging or surgical procedures for benign disease. - Benefits are obviously detection of lung cancer at an early stage which can lead to improved outcomes. - Discussed the importance of screening program compliance with adherence to yearly LDCT scan as scheduled - or sooner interval scans for personalized screening regimen. - Discussed follow up plan. Our office will send a letter discussing results and if needed set up phone call and office visit based on CT findings. - Patient educated on results categorization and the management decisions for suspicious findings potentially found on the screening LDCT scan. Any patient with a Lung RADS score of 3 or 4 will be reviewed by a multidisciplinary team at [facility] to form a plan of action in regards to scan findings. - If further work up is warranted for a suspicious lung finding this will be followed by the Lung Cancer Screening program in conjunction with the Thoracic Surgery Department at [facility]. - A copy of the office note and LDCT will be sent to the patient's PCP - as well as documentation on any associated further plans of care. - Incidental findings on LDCT are the PCP's responsibility. These findings are indicated with an S finding on the LDCT Assessment. A note discussing the findings will be sent to the PCP who is then responsible for further management. - All questions answered.? Coding Level of Care Code Lung Cancer Screening G0296 Diagnoses Nicotine dependence, cigarettes, uncomplicated F17.210
== END 2023-07-15 13:57 | disposition home or self-care (01) ==
PROVIDERS: PCP Internal Medicine; Visit Provider Physician Assistant Medical
DX: F17.210 Nicotine dependence, cigarettes, uncomplicated (principal)
CPT/HCPCS: G0296

== ENCOUNTER 2023-07-15 13:12 | Outpatient (REF) | payer BC, SELFPAY ==
--- NOTE | ~2023-07-15 | CT_ITS ---
EXAMINATION: CT CHEST SCREENING CLINICAL INFORMATION: Nicotine dependence. One pack per day for 34 years. Current smoker. COMPARISON: None available. TECHNIQUE: Multidetector volumetric CT imaging of the chest is performed without contrast using low dose technique. Additional 2D coronal and sagittal reformatted images and axial 3D maximum intensity projection (MIP) images are generated on the CT workstation. This CT examination was performed using dose optimization techniques as appropriate, variously including the following: *Automated exposure control *Adjustment of mA and/or kV according to patient size (this includes techniques or standardized protocols for targeted exams where dose is matched to indication/reason for exam; i.e. extremities or head) *Use of iterative reconstruction technique DLP: 126 mGy-cm FINDINGS: LUNGS: The lungs are well-expanded with focal atelectatic changes right middle lobe. There is a 3 mm nodule right upper lobe axial image 110/6. No additional nodules seen. There is mild haziness in both lung bases adjacent to the diaphragm but no consolidation or mass seen. MEDIASTINUM: Thyroid lobes are symmetric and normal. The central trachea and the bronchi are widely patent. Heart size and the great vessels are normal caliber. No pericardial effusion seen. No abnormal size mediastinal or hilar lymph nodes. CORONARY ARTERY CALCIFICATION: No coronary artery calcifications are visualized. PLEURA: There is no pleural effusion. No pleural mass or thickening. AXILLA: No lymphadenopathy. UPPER ABDOMEN: Visualized liver, spleen, pancreas and bilateral adrenal glands are unremarkable. There are no radiopaque gallstones. OSSEOUS STRUCTURES: Unremarkable. CT/CT lung screening IMPRESSION: 3 mm nodule right upper lobe. Focal atelectatic changes right middle lobe. ASSESSMENT: Lung-RADS category 2: Benign. RECOMMENDATION: Low-dose annual CT chest.
== END 2023-07-15 13:13 | disposition home or self-care (01) ==
LOC: HO.CT 13:12
PROVIDERS: PCP Internal Medicine; Visit Provider Physician Assistant Medical
DX: Z12.2 Encounter for screening for malignant neoplasm of respiratory organs (principal); F17.210 Nicotine dependence, cigarettes, uncomplicated
CPT/HCPCS: 71271; G0296

== ENCOUNTER 2023-07-20 12:16 | Outpatient (AMB) | payer BC, SELFPAY ==
[2023-07-20 12:34] VITALS: BP 150/86; PULSE 85; BMI 28.5
--- NOTE | 2023-07-20 12:34 | MHC.OFFVIS ---
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 Accompanied by: Self / Same As Patient Allergies hydrochlorothiazide Allergy (Unknown, Verified 07/20/23 12:34) Rash oxycodone [From OxyContin] Allergy (Verified 07/20/23 12:34) Itching Medication List - Last Reconciled 07/20/23 by Jad Granda MD blood pressure monitor (Blood Pressure Kit) As directed bupropion HCl (Wellbutrin SR) 150 mg PO BID cholecalciferol (vitamin D3) 50 mcg PO DAILY epinephrine (EpiPen 2-Vic) 0.3 mg (0.3 mL) IM Q10M PRN lisinopril 5 mg PO DAILY 90 days [id number] mcg (Centrum Silver Men) 1 tab PO DAILY HPI HPI Comments History of Present Illness Details Rhys returns for follow-up regarding premature supraventricular contractions. He was seen in consultation mainly for palpitations and there was a history of in his brother around age of 50 with suspected myocardial infarction but no autopsy performed. Any case patient underwent further workup with echocardiogram, Holter as well as calcium scoring CT scan. Overall, patient states he is generally doing fine. No clear-cut anginal-type symptoms. Some palpitations off and on. He just feels a bit 'restless' according to him. Unfortunately, still smokes but trying to quit. [facility] Medical History (Updated 07/15/23 @ 13:18 by Charo Landers PA-C) Bilateral hand numbness Degenerative disc disease Fracture of right tibia and fibula Hypertension Nicotine dependence, cigarettes, uncomplicated Overweight (BMI 25.0-29.9) Right rib fracture Tobacco abuse Tubular adenoma of colon Vitamin D deficiency Surgical History History of cervical spinal surgery History of colonoscopy History of excision of pilonidal cyst History of surgery on lower extremity Family History Mother Lung cancer History of SIADH Father Prostate cancer Sister Auto immune neutropenia Sister No problems noted. Brother Heart attack Daughter No problems noted. Maternal Uncle CAD (coronary artery disease) Social History Housing: Apartment Alcohol intake: current Alcohol intake frequency: does not drink Patient Tobacco Use Status: Current everyday Tobacco user Tobacco use type: Cigarette Cigarettes Per Day: 20 Years Smoked: onset 20yo, 1ppd x 33yrs, 30pyh e-Cigarette/Vaping Use: Never Used Second Hand Smoke Exposure: Yes service: No Current occupational status: employed Cognitive needs: No Hearing needs: No Vision needs: No Review of Systems Const Denies weakness ENT Denies dizziness Card Denies chest pain, Denies chest pain with activity, Denies syncope, Denies rapid heart rate, Denies pedal edema, Denies edema, Denies leg edema, Denies lightheadedness, Denies palpitations, Denies dyspnea, Denies dyspnea on exertion and Denies orthopnea Resp Denies cough, Denies dyspnea and Denies dyspnea on exertion GI Denies hematochezia and Denies change in stool character Musc Denies abnormal gait, Denies muscle cramps, Denies muscle weakness, Denies numbness, Denies radiating pain into limb and Denies tingling Neuro Denies abnormal gait, Denies dizziness, Denies syncope, Denies numbness, Denies tingling and Denies weakness Endo Denies palpitations Physical Exam Vital Signs: Last Vital Signs Pulse 85 07/20/23 12:34 BP 150/86 H 07/20/23 12:34 BMI result Body Mass Index 28.5 Const General: comfortable and no acute distress Orientation/consciousness: patient oriented x3 HEENT Other: Unremarkable Head: Yes normal to inspection Neck Neck: Yes normal visual inspection Chest Chest palpation & inspection: normal inspection of the chest Resp Auscultation: clear to auscultation bilaterally Cardio Palpation: normal PMI Heart sounds: S1 normal heart sound present, S2 normal heart sound present, no gallops, no murmurs and no rubs GI Palpation (GI): Soft to palpation Back/Spine/Pelvis Other: unremarkable Skin General skin exam: no rashes or lesions noted Neuro General: patient oriented x3 Extrem General: Yes normal to inspection Psych Mental Status: mental status grossly normal Office Procedures EKG Details: EKG with sinus rhythm at 82/Min; premature atrial contractions versus sinus arrhythmia; [place] [id number], Complete Assessment & Plan Assessment & Plan (1) Premature atrial contraction: Code(s): I49.1 - Atrial premature depolarization (2) Tobacco abuse: Code(s): Z72.0 - Tobacco use (3) Hypertension: Code(s): I10 - Essential (primary) hypertension Qualifiers: Hypertension type: primary hypertension Qualified Code(s): I10 - Essential (primary) hypertension (4) Smoking: Code(s): F17.200 - Nicotine dependence, unspecified, uncomplicated Plan Cardiac studies reviewed. Echocardiogram is unremarkable. LVEF 60-60%. No significant valvular issues or other abnormalities. Holter shows frequent premature supraventricular ectopy. Coronary calcium score-0. Based on the above, no evidence of coronary disease or cardiomyopathy. With regard to the supraventricular ectopy, no specific management. He needs screening for underlying obstructive sleep apnea. Sleep study is being ordered. Discussed with patient. With regard to high blood pressure, he states he just got home blood pressure monitor. Advised him to check it for a few weeks and then contact us. He may need uptitration of meds. With regard to smoking, ideally should stop smoking completely. We again discussed about the same and implications from continued smoking and he understands. Total time spent including review of data, counseling, documentation, coordination of care-31 minutes. Orders: Orders RT home sleep study Today G47.33 - Obstructive sleep apnea (adult) (pediatric) Coding Level of Care Code Est Pt Level 4 (30704) Diagnoses Premature atrial contraction I49.1 Tobacco abuse Z72.0 Hypertension I10 Hypertension type: primary hypertension Smoking F17.200 CPT Codes EKG - CPT: 08122-[id number], Complete ([id number])
== END 2023-07-20 12:49 | disposition home or self-care (01) ==
PROVIDERS: PCP Internal Medicine; Referring Provider Internal Medicine; Visit Provider Internal Medicine
DX: I49.1 Atrial premature depolarization (principal); I10 Essential (primary) hypertension; F17.210 Nicotine dependence, cigarettes, uncomplicated
CPT/HCPCS: 93010; 99214

== ENCOUNTER → 2023-07-20 12:16 | Outpatient (BNVA) | payer BC, SELFPAY | PROVIDERS: PCP Internal Medicine; Referring Provider Internal Medicine; Visit Provider Internal Medicine | DX: I49.1 Atrial premature depolarization (principal); I10 Essential (primary) hypertension; F17.210 Nicotine dependence, cigarettes, uncomplicated | CPT/HCPCS: 93005 ==

== ENCOUNTER → 2023-08-25 15:32 | Outpatient (REF) | payer BC, SELFPAY | LOC: HO.SL 15:32 | PROVIDERS: PCP Internal Medicine; Visit Provider Internal Medicine | DX: Z13.89 Encounter for screening for other disorder (principal) ==

== ENCOUNTER → 2023-09-07 15:20 | Outpatient (REF) | payer BC, SELFPAY | LOC: HO.SL 15:20 | PROVIDERS: PCP Internal Medicine; Visit Provider Internal Medicine | DX: G47.33 Obstructive sleep apnea (adult) (pediatric) (principal) | CPT/HCPCS: 95806 ==

== ENCOUNTER → 2023-09-07 15:35 | Outpatient (BNV) | payer BC, SELFPAY | PROVIDERS: PCP Internal Medicine; Visit Provider Internal Medicine | DX: R06.83 Snoring (principal) | CPT/HCPCS: 95806 ==

== ENCOUNTER 2023-10-18 10:40 | Outpatient (AMB) | payer BC, SELFPAY ==
--- NOTE | 2023-10-18 10:43 | A.OFFVIS_ITS ---
Intake Vital Signs 3 10/18/23 10:44 Height 5 ft 9 in Weight 197 lb BMI 29.1 BP 144/80 H Blood Pressure Location Lt brachial Position Sitting Pulse 78 Pulse Source Pulse Oximeter Pulse Oximetry (%) 100 Oxygen Delivery Method Room Air Intake Visit Reasons: william Edge Inker Required: No Public Records Officer: Public Records Officer offered & declined Accompanied by: Self / Same As Patient Allergies hydrochlorothiazide Allergy (Unknown, Verified 10/18/23 10:51) Rash oxycodone [From OxyContin] Allergy (Verified 10/18/23 10:51) Itching Medication List - Last Reconciled 10/18/23 by Nicole Quintero LPN blood pressure monitor (Blood Pressure Kit) As directed bupropion HCl (Wellbutrin SR) 150 mg PO BID cholecalciferol (vitamin D3) 50 mcg PO DAILY epinephrine (EpiPen 2-Vic) 0.3 mg (0.3 mL) IM Q10M PRN lisinopril 5 mg PO DAILY 90 days [id number] mcg (Centrum Silver Men) 1 tab PO DAILY HPI william 2 HPI0 Details Rhys is a pleasant 53 year old male, current 1ppd smoker with 30 pack year history, with underlying hypertension. He was referred for pulmonary evaluation after recent home sleep study revealed nocturnal hypoxemia. Report below. Patient reports snoring otherwise denies any morning headaches, PND, or daytime fatigue. Despite his smoking history, he denies any respiratory symptoms at this time. He has attempted to quit using chantix but developed adverse effects. He was recently evaluaed with LDCT with the lung cancer screening program, Lung RADS2. He reports mother had lung cancer, otherwise no pertinent family history. [facility] Medical History (Updated 10/18/23 @ 10:54 by Winifred King NP) Nicotine dependence, cigarettes, uncomplicated Tubular adenoma of colon Bilateral hand numbness Right rib fracture Fracture of right tibia and fibula Tobacco abuse Degenerative disc disease Vitamin D deficiency Hypertension Overweight (BMI 25.0-29.9) Surgical History History of cervical spinal surgery History of colonoscopy History of excision of pilonidal cyst History of surgery on lower extremity Family History Mother Lung cancer History of [facility] Father Prostate cancer Sister Auto immune neutropenia Sister No problems noted. Brother Heart attack Daughter No problems noted. Maternal Uncle CAD (coronary artery disease) Social History (Updated 10/18/23 @ 10:52 by Nicole Quintero LPN) Housing: Apartment Alcohol intake: current Alcohol intake frequency: does not drink Patient Tobacco Use Status: Current everyday Tobacco user Tobacco use type: Cigarette Cigarettes Per Day: 20 Years Smoked: onset 20yo, 1ppd x 33yrs, 30pyh Smoked in Last 30 Days: Yes e-Cigarette/Vaping Use: Never Used Second Hand Smoke Exposure: Yes service: No Current occupational status: employed Cognitive needs: No Hearing needs: No Vision needs: No Review of Systems Const Denies chills, Denies excessive sweating, Denies fever(s), Denies headache(s) and Denies night sweats Eyes Denies dry eyes, Denies irritation and Denies itchy eyes ENT Reports Normal hearing present, Denies headache(s), Denies nasal congestion, Denies nasal discharge, Denies post nasal drip and Denies sore throat Card Denies chest pain, Denies chest pain at rest, Denies chest pain with activity, Denies claudication, Denies leg edema, Denies dyspnea, Denies dyspnea on exertion, Denies orthopnea and Denies paroxysmal nocturnal dyspnea Resp Denies chest congestion, Denies cough, Denies excessive phlegm production, Denies pain on inspiration, Denies pain with cough, Denies dyspnea, Denies dyspnea on exertion, Denies stridor and Denies wheezing Musc Denies myalgias Neuro Reports Normal hearing present and Denies headache(s) Endo Denies excessive sweating Florencio/Lymph Denies lymphadenopathy Aller/Immun Denies itchy eyes, Denies seasonal rhinorrhea and Denies wheezing Physical Exam Vital Signs: Last Vital Signs Pulse 78 10/18/23 10:44 BP 144/80 H 10/18/23 10:44 Pulse Ox 100 10/18/23 10:44 Oxygen Delivery Method Room Air 10/18/23 10:44 BMI result Body Mass Index 29.1 Const General: cooperative, healthy appearing, comfortable, no acute distress, well developed and alert Orientation/consciousness: patient oriented x3 Limitations: no limitations HEENT Head: Yes normal to inspection, Yes normocephalic and Yes atraumatic Ears: hearing grossly normal bilaterally and external ears normal Eyes General: appearance normal, both eyes and all related structures Eyelids: Yes eyelids normal Sclerae: sclerae normal EOM: EOMs intact bilaterally Neck Neck: Yes normal visual inspection and Yes no lymphadenopathy Lymphatic: no lymphadenopathy noted Chest Chest palpation & inspection: normal inspection of the chest Resp Effort & Inspection: normal respiratory effort, able to speak in complete sentences, no audible wheezes, no cough, no stridor, not tachypneic, no tripod positioning and no use of accessory muscles Auscultation: clear to auscultation bilaterally Cardio Jugular venous distension: no JVD Rate: regular rate Rhythm: regular rhythm Skin Other: warm, dry General skin exam: no rashes or lesions noted Neuro General: patient oriented x3 Cranial nerves: Yes Normal hearing present Cognition (Neuro): normal cognition Gait exam (Neuro): Normal gait present Extrem General: Yes normal to inspection, Yes capillary refill normal, Yes no clubbing, cyanosis or edema and Yes no pedal edema Psych Appearance: grossly normal and well kempt Speech and movement: Normal speech and movement present and Clear speech present Affect: normal affect Attitude: cooperative Thought process: Normal thought process present Thought content: Normal thought content present Insight: Good insight present (Psych) Judgement: Good judgement present (Psych) Results Reviewed Results Reviewed: [place] [id number] CT Scan Report Signed Patient: Rhys Montilla MR#: [id number] : 1970 Acct:[id number] Age/Sex: 53 / M ADM Date: 07/15/23 Loc: .CT Attending Dr: Charo Landers PA-C Ordering Physician: Charo Landers PA-C Date of Service: 07/15/23 Procedure(s): CT lung screening Accession Number(s): [id number] cc: Charo Landers PA-C; Ada Flores MD~ EXAMINATION: CT CHEST SCREENING CLINICAL INFORMATION: Nicotine dependence. One pack per day for 34 years. Current smoker. COMPARISON: None available. TECHNIQUE: Multidetector volumetric CT imaging of the chest is performed without contrast using low dose technique. Additional 2D coronal and sagittal reformatted images and axial 3D maximum intensity projection (MIP) images are generated on the CT workstation. This CT examination was performed using dose optimization techniques as appropriate, variously including the following: *Automated exposure control *Adjustment of mA and/or kV according to patient size (this includes techniques or standardized protocols for targeted exams where dose is matched to indication/reason for exam; i.e. extremities or head) *Use of iterative reconstruction technique DLP: 126 mGy-cm FINDINGS: LUNGS: The lungs are well-expanded with focal atelectatic changes right middle lobe. There is a 3 mm nodule right upper lobe axial image 110/6. No additional nodules seen. There is mild haziness in both lung bases adjacent to the diaphragm but no consolidation or mass seen. MEDIASTINUM: Thyroid lobes are symmetric and normal. The central trachea and the bronchi are widely patent. Heart size and the great vessels are normal caliber. No pericardial effusion seen. No abnormal size mediastinal or hilar lymph nodes. CORONARY ARTERY CALCIFICATION: No coronary artery calcifications are visualized. PLEURA: There is no pleural effusion. No pleural mass or thickening. AXILLA: No lymphadenopathy. UPPER ABDOMEN: Visualized liver, spleen, pancreas and bilateral adrenal glands are unremarkable. There are no radiopaque gallstones. OSSEOUS STRUCTURES: Unremarkable. CT/CT lung screening IMPRESSION: 3 mm nodule right upper lobe. Focal atelectatic changes right middle lobe. ASSESSMENT: Lung-RADS category 2: Benign. RECOMMENDATION: Low-dose annual CT chest. Assessment & Plan Assessment & Plan (1) Nicotine dependence, cigarettes, uncomplicated: Comment: (current smoker - onset 20yo, 1ppd x 33yrs, 30pyh, + fam hx lung CA mom) Code(s): F17.210 - Nicotine dependence, cigarettes, uncomplicated (2) Nocturnal hypoxemia: Code(s): G47.34 - Idiopathic sleep related nonobstructive alveolar hypoventilation (3) Pulmonary nodule less than 6 mm determined by computed tomography of lung: Code(s): R91.1 - Solitary pulmonary nodule Plan Will enter order for overnight oximetry for reassess for nocturnal hypoxemia. If consistent with prior home sleep study, will send for PFT. Recent chest CT did not reveal any significant parenchymal disease. We discussed smoking cessation. All questions were answered and patient is in agreement of plan. Will follow up after overnight oximetry to review results. Orders: Orders 2 Overnight Pulse Oximetry Today G47.34 - Idiopathic sleep related nonobstructive alveolar hypoventilation Coding Level of Care Code New Pt Level 3 (49064) Diagnoses Nicotine dependence, cigarettes, uncomplicated F17.210 Nocturnal hypoxemia G47.34 Pulmonary nodule less than 6 mm determined by computed tomography of lung R91.1
[2023-10-18 10:44] VITALS: BP 144/80; PULSE 78; O2SAT 100; BMI 29.1
== END 2023-10-18 11:25 | disposition home or self-care (01) ==
PROVIDERS: PCP Internal Medicine; Referring Provider Internal Medicine; Visit Provider Nurse Practitioner Family
DX: F17.210 Nicotine dependence, cigarettes, uncomplicated (principal); G47.34 Idiopathic sleep related nonobstructive alveolar hypoventilation; R91.1 Solitary pulmonary nodule
CPT/HCPCS: 99203; 99213

== ENCOUNTER → 2023-10-18 10:40 | Outpatient (BNVA) | payer BC, SELFPAY | PROVIDERS: PCP Internal Medicine; Referring Provider Internal Medicine; Visit Provider Nurse Practitioner Family ==

== ENCOUNTER 2023-10-28 13:37 | Outpatient (AMB) | payer BC, SELFPAY ==
[2023-10-28 14:09] VITALS: BP 150/84; PULSE 78; RESP 17; BMI 28.9
--- NOTE | 2023-10-28 14:09 | MHC.OFFVIS ---
Intake Vital Signs 10/28/23 14:09 Height 5 ft 9 in Weight 196 lb BMI 28.9 BP 150/84 H Blood Pressure Location Lt brachial Position Sitting Respiration 17 Pulse 78 Pulse Source Palpation Intake Visit Reasons: Hypertension Director Of Dance Required: No Accompanied by: Self / Same As Patient Allergies hydrochlorothiazide Allergy (Unknown, Verified 10/28/23 14:12) Rash oxycodone [From OxyContin] Allergy (Verified 10/28/23 14:12) Itching Medication List - Last Reconciled 10/28/23 by Ada Flores MD blood pressure monitor (Blood Pressure Kit) As directed bupropion HCl (Wellbutrin SR) 150 mg PO BID cholecalciferol (vitamin D3) 50 mcg PO DAILY epinephrine (EpiPen 2-Vic) 0.3 mg (0.3 mL) IM Q10M PRN lisinopril 5 mg PO DAILY 90 days [id number] mcg (Centrum Silver Men) 1 tab PO DAILY HPI Hypertension HPI Details 53-year-old overweight male smoker with impaired glucose tolerance generalized anxiety disorder hypertension last seen in June 2023. Patient is up-to-date with colonoscopy in 2015. Review of the notes patient was seen by the Pulmonary for the obstructive sleep apnea problem patient also had a CT scan done of the chest in July 2023 due to the smoking history showing a 3 mm right upper lobe nodule. Patient did have a sleep study showing nocturnal hypoxemia and was advised to get an overnight oximetry. Patient did see the Cardiology also 1 year after the Holter monitor regarding [facility] Medical History (Updated 10/28/23 @ 14:26 by Ada Flores MD) Nicotine dependence, cigarettes, uncomplicated Tubular adenoma of colon Bilateral hand numbness Right rib fracture Fracture of right tibia and fibula Tobacco abuse Degenerative disc disease Vitamin D deficiency Hypertension Overweight (BMI 25.0-29.9) Surgical History History of cervical spinal surgery History of surgery on lower extremity History of excision of pilonidal cyst History of colonoscopy Family History Mother Lung cancer History of [facility] Father Prostate cancer Sister Auto immune neutropenia Sister No problems noted. Brother Heart attack Daughter No problems noted. Maternal Uncle CAD (coronary artery disease) Social History Housing: Apartment Alcohol intake: current Alcohol intake frequency: does not drink Patient Tobacco Use Status: Current everyday Tobacco user Tobacco use type: Cigarette Cigarettes Per Day: 20 Years Smoked: onset 20yo, 1ppd x 33yrs, 30pyh e-Cigarette/Vaping Use: Never Used Second Hand Smoke Exposure: Yes service: No Current occupational status: employed Cognitive needs: No Hearing needs: No Vision needs: No Physical Exam Vital Signs: Last Vital Signs Pulse 78 10/28/23 14:09 Resp 17 10/28/23 14:09 BP 150/84 H 10/28/23 14:09 BMI result Body Mass Index 28.9 Const General: alert; No acute distress Eyes Conjunctivae: conjunctivae normal Resp Auscultation: clear to auscultation bilaterally Cardio Rate: regular rate Rhythm: regular rhythm GI Inspection: Yes normal to inspection Extrem General: Yes normal to inspection and No edema Assessment & Plan Assessment & Plan (1) Pulmonary nodule less than 6 mm determined by computed tomography of lung: Comment: July 2023 Code(s): R91.1 - Solitary pulmonary nodule Plan: Lung cancer screening program yearly low-dose (2) Nicotine dependence, cigarettes, uncomplicated: Comment: (current smoker - onset 20yo, 1ppd x 33yrs, 30pyh, + fam hx lung CA mom) Code(s): F17.210 - Nicotine dependence, cigarettes, uncomplicated Plan: Patient is strongly advised to stop smoking (3) Overweight (BMI 25.0-29.9): Code(s): E66.3 - Overweight Plan: Diet and exercise (4) Hypertension: Code(s): I10 - Essential (primary) hypertension Qualifiers: Hypertension type: primary hypertension Qualified Code(s): I10 - Essential (primary) hypertension Plan: Continue with blood pressure medication. Decrease salt intake and exercise patient takes lisinopril 5 mg once a day (5) Nocturnal hypoxemia: Code(s): G47.34 - Idiopathic sleep related nonobstructive alveolar hypoventilation Plan: Patient is ordered to have an overnight oximetry Medications: Changed From lisinopril 5 mg PO DAILY 90 days 90 tabs 3RF I10 - Essential (primary) hypertension To lisinopril 10 mg PO DAILY 90 tabs 3RF 90 days I10 - Essential (primary) hypertension Coding Level of Care Code Est Pt Level 4 (75557) Diagnoses Pulmonary nodule less than 6 mm determined by computed tomography of lung R91.1 Nicotine dependence, cigarettes, uncomplicated F17.210 Overweight (BMI 25.0-29.9) E66.3 Primary hypertension I10 Hypertension type: primary hypertension Nocturnal hypoxemia G47.34
== END 2023-10-28 14:38 | disposition home or self-care (01) ==
PROVIDERS: PCP Internal Medicine; Visit Provider Internal Medicine
DX: R91.1 Solitary pulmonary nodule (principal); F17.210 Nicotine dependence, cigarettes, uncomplicated; E66.3 Overweight; I10 Essential (primary) hypertension; G47.34 Idiopathic sleep related nonobstructive alveolar hypoventilation
CPT/HCPCS: 99214

== ENCOUNTER 2024-04-03 12:27 | Outpatient (AMB) | payer BC, SELFPAY ==
[2024-04-03 12:36] VITALS: BP 144/82; PULSE 88; O2SAT 98; BMI 28.1
--- NOTE | 2024-04-03 12:36 | MHC.PC.OV ---
Vital Signs 04/03/24 12:36 Height 5 ft 9 in Weight 190 lb BMI 28.1 BP 144/82 H Blood Pressure Location Lt brachial Position Sitting Pulse 88 Pulse Source Pulse Oximeter Pulse Oximetry (%) 98 Oxygen Delivery Method Room Air Intake Visit Reasons: Hypertension Allergies hydrochlorothiazide Allergy (Unknown, Verified 04/03/24 12:37) Rash oxycodone [From OxyContin] Allergy (Verified 04/03/24 12:37) Itching Medication List - Last Reconciled 04/03/24 by Ada Flores MD blood pressure monitor (Blood Pressure Kit) As directed bupropion HCl SR (Wellbutrin SR) 150 mg PO BID cholecalciferol (vitamin D3) 50 mcg PO DAILY cyclobenzaprine 5 mg PO BEDTIME PRN epinephrine (EpiPen 2-Vic) 0.3 mg (0.3 mL) IM Q10M PRN lisinopril 20 mg PO DAILY 90 days [id number] mcg (Centrum Silver Men) 1 tab PO DAILY Tobacco use date assessed: 04/03/24 Dental Screening Dental Screen Date: 04/03/24 Did you have a dental visit in the last 12 months?: Yes Did you have a dental problem in the last 6 months where you did not have access to dental care?: No Was dental information given to patient?: Patient has dentist HPI Hypertension HPI Details 53-year-old overweight male smoker with hypertension pulmonary nodule last seen in October 2023 patient is up-to-date with colonoscopy. Review of the notes patient had an overnight pulse oximetry report and with the desaturation events of 17 per hour advised to get the sleep study. Also complains of having low back pain recently this was yesterday had a cough and pulled his back was asking for muscle relaxants. Deny any fall or trauma. As for blood pressure medication on lisinopril with no problems. [facility] Medical History (Updated 10/28/23 @ 14:26 by Ada Flores MD) Nicotine dependence, cigarettes, uncomplicated Tubular adenoma of colon Bilateral hand numbness Right rib fracture Fracture of right tibia and fibula Tobacco abuse Degenerative disc disease Vitamin D deficiency Hypertension Overweight (BMI 25.0-29.9) Surgical History History of cervical spinal surgery History of surgery on lower extremity History of excision of pilonidal cyst History of colonoscopy Family History Mother Lung cancer [facility] Father Prostate cancer Sister Auto immune neutropenia Sister No problems noted. Brother Heart attack Daughter No problems noted. Maternal Uncle CAD (coronary artery disease) Social History Housing: Apartment Alcohol intake: current Alcohol intake frequency: does not drink Patient Tobacco Use Status: Current everyday Tobacco user Tobacco use type: Cigarette Cigarettes Per Day: 20 Years Smoked: onset 20yo, 1ppd x 33yrs, 30pyh e-Cigarette/Vaping Use: Never Used Second Hand Smoke Exposure: Yes service: No Current occupational status: employed Cognitive needs: No Hearing needs: No Vision needs: No Questionnaire PHQ-9 Over the last 2 weeks, how often have you been bothered by any of the following problems? 1. Little interest or pleasure in doing things: not at all 2. Feeling down, depressed, or hopeless: not at all 3. Trouble falling or staying asleep, or sleeping too much: not at all 4. Feeling tired or having little energy: not at all 5. Poor appetite or overeating: not at all 6. Feeling bad about yourself - or that you are a failure or have let yourself or your family down: not at all 7. Trouble concentrating on things, such as reading the newspaper or watching television: not at all 8. Moving or speaking so slowly that other people could have noticed. Or the opposite - being so fidgety or restless that you have been moving around a lot more than usual: not at all 9. Thoughts that you would be better off or of hurting yourself in some way: not at all Total score: 0 Depression Screening Interpretation: Negative Depression Screening Done: Yes Source: Developed by Drs. Riley Fair, Miracle Ruiz, Bear Donato and colleagues, with an educational mani from [employer]. Thrive Questionnaire Date Thrive assessed: 04/03/24 I am a: Patient What is your living situation today?: I have a steady place to live Within the past 12 months, did the food you bought not last and you didn't have the money to get more?: Never true Within the past 12 months, did you worry whether your food would run out before you got money to buy more?: Never true Do you have trouble paying for medicines?: No Do you have trouble getting transportation to medical appointments?: No Do you have trouble paying your heating and electricity bill?: No Do you have trouble taking care of your child, family member or friend?: No Do you have trouble with day-to-day activities such as bathing, preparing meals, shopping, managing finances, etc.?: No Are you currently unemployed and looking for a job?: No Are you interested in more education?: No Currently or been in a relationship where the following occur: no concerns reported THRIVE Score: 0 AUDIT C Alcohol Use Questionnaire (AUDIT-C) 1. How often do you have a drink containing alcohol?: Monthly or less 2. How many drinks containing alcohol do you have on a typical day when you are drinking?: 1 or 2 3. How often do you have six or more drinks on one occasion?: Never Total Score: 1 SHALONDA-7 AMB Questionnaire SHALONDA-7 Date SHALONDA - 7 assessed: 04/03/24 Feeling nervous, anxious, or on edge: 1 = Several days Not being able to stop or control worryin = Several days Worrying too much about different things: 1 = Several days Trouble relaxin = Several days Being so restless that it is hard to sit still: 0 = Not at all Becoming easily annoyed or irritable: 1 = Several days Feeling afraid as if something awful might happen: 0 = Not at all Total SHALONDA-7 score (0-4 normal; 5-9 mild; 10-14 moderate; 15-21 severe): 5 Source: Developed by Drs. Riley Fair, Miracle Ruiz, Bear Donato and colleagues, with an educational mani from [employer]. Physical exam (Primary Care) Vital Signs: Oxygen Delivery Method Room Air 04/03/24 12:36 Tobacco/Smoking Status: Tobacco use Status Tobacco use date assessed 05/12/23 10/12/23 11:28 Patient Tobacco Use Status Current everyday Tobacco 10/18/23 10:52 Tobacco use type Cigarette 10/18/23 10:52 e-Cigarette/Vaping Use Never Used 10/18/23 10:52 Depression Screening Interpretation: Negative Thrive Assessment: Date of Thrive Assessment Date Thrive assessed 05/12/23 10/12/23 11:28 Currently or been in a relationship where the following occur: no concerns reported Const General: alert; No acute distress Eyes Conjunctivae: conjunctivae normal Resp Auscultation: clear to auscultation bilaterally Cardio Rate: regular rate Rhythm: regular rhythm GI Inspection: Yes normal to inspection Extrem General: Yes normal to inspection and No edema Assessment and Plan Assessment & Plan (1) Nicotine dependence, cigarettes, uncomplicated: Comment: (current smoker - onset 20yo, 1ppd x 33yrs, 30pyh, + fam hx lung CA mom) Code(s): F17.210 - Nicotine dependence, cigarettes, uncomplicated Plan: Patient is strongly advised to stop smoking! still smoking - less than a pack a day (2) Overweight (BMI 25.0-29.9): Code(s): E66.3 - Overweight Plan: Diet and exercise (3) Hypertension: Code(s): I10 - Essential (primary) hypertension Qualifiers: Hypertension type: primary hypertension Qualified Code(s): I10 - Essential (primary) hypertension Plan: Continue with blood pressure medication. Decrease salt intake and exercise presently on lisinopril 10 mg once a day (4) Nocturnal hypoxemia: Code(s): G47.34 - Idiopathic sleep related nonobstructive alveolar hypoventilation Plan: Patient was advised to get a sleep study done but this was done already showing no sleep apnea. Advised to ff up with pulmonary (5) Lumbar degenerative disc disease: Code(s): M51.36 - Other intervertebral disc degeneration, lumbar region Plan: Muscle relaxants prescription sent in Orders: Orders Comprehensive Met. Panel Today I10 - Essential (primary) hypertension Free T4 (Free Thyroxine) Today I10 - Essential (primary) hypertension Lipid Panel Today E78.00 - Pure hypercholesterolemia, unspecified, I10 - Essential (primary) hypertension Prostate Specific Antigen Scr Today I10 - Essential (primary) hypertension Complete Blood Count Auto Diff Today I10 - Essential (primary) hypertension Thyroid Stimulating Hormone Today I10 - Essential (primary) hypertension Vitamin B12 and Folate Today I10 - Essential (primary) hypertension Medications: New cyclobenzaprine 5 mg PO BEDTIME PRN 30 tabs 0RF muscle spasm M51.36 - Other intervertebral disc degeneration, lumbar region Changed From lisinopril 10 mg PO DAILY 90 days 90 tabs 3RF I10 - Essential (primary) hypertension To lisinopril 20 mg PO DAILY 90 days 90 tabs 3RF I10 - Essential (primary) hypertension Refilled epinephrine (EpiPen 2-Vic) for 2 doses 0.3 mg (0.3 mL) IM Q10M PRN 2 ea 0RF anaphylaxis I10 - Essential (primary) hypertension Coding Level of Care Code Est Pt Level 4 (07257) Diagnoses Nicotine dependence, cigarettes, uncomplicated F17.210 Overweight (BMI 25.0-29.9) E66.3 Primary hypertension I10 Hypertension type: primary hypertension Nocturnal hypoxemia G47.34 Lumbar degenerative disc disease M51.36 Additional Codes PHQ-9 - 62826 - PHQ-9 Billing: ([id number])
== END 2024-04-03 13:12 | disposition home or self-care (01) ==
PROVIDERS: PCP Internal Medicine; Visit Provider Internal Medicine
DX: I10 Essential (primary) hypertension (principal); F17.210 Nicotine dependence, cigarettes, uncomplicated; G47.34 Idiopathic sleep related nonobstructive alveolar hypoventilation; M51.36 Other intervertebral disc degeneration, lumbar region
CPT/HCPCS: 99214

== ENCOUNTER 2024-04-16 08:41 | Outpatient (REF) | payer BC, SELFPAY ==
[2024-04-16 10:19] LABS: MANUAL DIFF FLAG NO
[2024-04-16 10:39] LABS: Basophils Absolute Auto 0.1 X10*3/uL (0.0-0.2); Basophils Percent Auto 0.8 % (0-2); Eosinophils Absolute Auto 0.1 X10*3/uL (0.0-0.4); Hemoglobin 15.1 g/dl (14.0-18.0); Imm Gran Abs Auto 0.01 X10*3/uL (0.00-0.03); Imm Gran Pct Auto 0.2 % (0.0-0.4); Lymphocytes Absolute Auto 1.9 X10*3/uL (1.2-4.9); Lymphocytes Percent Auto 31.7 % (20-40); Mean Corpuscular HGB Conc 35.1 g/dl (31.0-36.0); Mean Corpuscular Hemoglobin 33.9 pg (27.0-33.0); Mean Corpuscular Volume 96.6 fL (80.0-98.0); Mean Platelet Volume 8.9 fL (9.4-12.4); Monocytes Absolute Auto 0.5 X10*3/uL (0.1-1.2); Monocytes Percent Auto 7.5 % (2-11); Neutrophils Absolute Auto 3.5 x10*3/uL (2.0-8.3); Neutrophils Percent Auto 57.8 % (45-73); Platelet Count 299 X10*3/uL (160-400); Red Blood Count 4.45 X10*6/uL (4.60-5.80); Red Cell Distribution Width 11.3 % (11.0-16.0)
[2024-04-16 11:21] LABS: Alanine Aminotransferase 28 U/L (0-40); Albumin Level 4.4 g/dL (3.5-5.0); Alkaline Phosphatase 61 U/L (39-117); Anion Gap 12 (12-20); Aspartate Amino Transferase 26 U/L (5-37); Bilirubin Total 0.8 mg/dL (0.0-1.0); Blood Urea Nitrogen 12 mg/dL (9-16); Calcium 9.5 mg/dL (8.4-10.2); Carbon Dioxide 27 mmol/L (22-29); Chloride 102 mmol/L (96-108); Cholesterol 221 mg/dL (<200); Estimated Glomerular Filt Rate > 60; Glucose Random 107 mg/dL (60-115); HDL Cholesterol 104 mg/dL (>40); LDL Cholesterol Calculated 106 mg/dL (<100); Potassium 4.6 mmol/L (3.3-5.1); Sodium 136 mmol/L (135-145); Triglycerides 59 mg/dL (<150)
[2024-04-16 11:25] LABS: Free T4 (Free Thyroxine) 0.83 ng/dL (0.71-1.85); Thyroid Stimulating Hormone 1.45 uIU/mL (0.32-4.0)
[2024-04-16 11:53] LABS: Vitamin B12 471 pg/mL (200-900)
== END 2024-04-16 08:42 | disposition home or self-care (01) ==
LOC: HO.HMGCLDS 08:41
PROVIDERS: PCP Internal Medicine; Visit Provider Internal Medicine
DX: I10 Essential (primary) hypertension (principal); E78.00 Pure hypercholesterolemia, unspecified; Z12.5 Encounter for screening for malignant neoplasm of prostate
CPT/HCPCS: 36415; 80053; 80061; 82607; 82746; 84153; 84439; 84443; 85025

== ENCOUNTER 2024-06-04 09:34 | Outpatient (AMB) | payer BC, SELFPAY ==
--- NOTE | 2024-06-04 10:35 | AM.OFFWIN_ITS ---
Intake Vital Signs 06/04/24 10:36 Height 5 ft 9 in Weight 193 lb BMI 28.5 BP 122/84 Blood Pressure Location Rt brachial Position Sitting Pulse 83 Pulse Source Pulse Oximeter Temp 98.7 F Temp Source Oral Pulse Oximetry (%) 98 Oxygen Delivery Method Room Air Intake Visit Reasons: EP rectal bleeding 4 days Intake Note: pt here c/o rectal bleeding x 4 days. States has hemorrhoids intermittently Patient Tobacco Use Status: Current everyday Tobacco user Allergies hydrochlorothiazide Allergy (Unknown, Verified 06/04/24 10:36) Rash oxycodone [From OxyContin] Allergy (Verified 06/04/24 10:36) Itching Do you need a note to return to daycare/school/sports/work: No HPI HPI Comments History of Present Illness Details Patient is a 54-year-old male complaining of rectal bleeding. He states that he has always had hemorrhoids but it seemed like the last few episodes he has had no last 2 weeks have been getting worse. He states he was at work 1 time and he soaked through all of his clothes and bled onto his chair at work. He states he had to use several paper towels to clean himself up. The other episode happened at home he was just sitting on the couch and he bled through his clothes again and ended up with a large round blood stain on his sofa. He states he has been using tucks pads. He states multiple members of his family have issues with hemorrhoids so he is aware how to treat them. He states his knees had to have surgery and he was not sure at what point this could be an option for him however he does not want surgery right now. [facility] Medical History (Updated 06/04/24 @ 11:09 by Janet Guevara PA-C) Nicotine dependence, cigarettes, uncomplicated Tubular adenoma of colon Bilateral hand numbness Right rib fracture Fracture of right tibia and fibula Tobacco abuse Degenerative disc disease Vitamin D deficiency Hypertension Overweight (BMI 25.0-29.9) Surgical History History of cervical spinal surgery History of surgery on lower extremity History of excision of pilonidal cyst History of colonoscopy Family History Mother Lung cancer History of SIADH Father Prostate cancer Sister Auto immune neutropenia Sister No problems noted. Brother Heart attack Daughter No problems noted. Maternal Uncle CAD (coronary artery disease) Social History Housing: Apartment Alcohol intake: current Alcohol intake frequency: does not drink Patient Tobacco Use Status: Current everyday Tobacco user Tobacco use type: Cigarette Cigarettes Per Day: 20 Years Smoked: onset 20yo, 1ppd x 33yrs, 30pyh e-Cigarette/Vaping Use: Never Used Second Hand Smoke Exposure: Yes service: No Current occupational status: employed Cognitive needs: No Hearing needs: No Vision needs: No Review of Systems Const All systems reviewed & are unremarkable except as noted in HPI and below Physical Exam Vital Signs: Last Vital Signs Temp 98.7 F 06/04/24 10:36 Pulse 83 06/04/24 10:36 BP 122/84 06/04/24 10:36 Pulse Ox 98 06/04/24 10:36 Oxygen Delivery Method Room Air 06/04/24 10:36 BMI result Body Mass Index 28.5 Const General: cooperative, healthy appearing, comfortable, no acute distress and well developed Orientation/consciousness: patient oriented x3 Limitations: no limitations HEENT Head: Yes normal to inspection Eyes General: appearance normal, both eyes and all related structures Neck Neck: Yes normal visual inspection and Yes full ROM Resp Effort & Inspection: normal respiratory effort and able to speak in complete sentences Skin General skin exam: no rashes or lesions noted Neuro General: patient oriented x3 Extrem General: Yes normal to inspection Assessment & Plan Assessment & Plan (1) Bleeding hemorrhoids: Code(s): K64.9 - Unspecified hemorrhoids Plan: Vital signs stable, very low suspicion for GI bleed. Likely hemorrhoids in nature but bleeding seems excessive, did message his PCP for further workup. Did educate patient on increasing fiber, increasing water intake so he is straining less. As well as Anusol or preparation H or tucks pads. Plan See above Coding Level of Care Code Est Pt Level 3 (32721) Diagnoses Bleeding hemorrhoids K64.9
[2024-06-04 10:36] VITALS: BP 122/84; PULSE 83; TEMP 37.1; O2SAT 98; BMI 28.5
== END 2024-06-04 11:11 | disposition home or self-care (01) ==
PROVIDERS: PCP Internal Medicine; Visit Provider Physician Assistant
DX: K64.9 Unspecified hemorrhoids (principal)
CPT/HCPCS: 99213

== ENCOUNTER 2024-06-07 08:48 | Outpatient (AMB) | payer BC, SELFPAY ==
--- NOTE | 2024-06-07 08:53 | MHC.PC.OV ---
Vital Signs 06/07/24 09:02 Height 5 ft 9 in Weight 190 lb BMI 28.1 BP 138/88 Blood Pressure Location Lt brachial Position Sitting Pulse 81 Pulse Source Pulse Oximeter Pulse Oximetry (%) 98 Oxygen Delivery Method Room Air Intake Visit Reasons: Rectal bleeding Allergies hydrochlorothiazide Allergy (Unknown, Verified 06/07/24 09:02) Rash oxycodone [From OxyContin] Allergy (Verified 06/07/24 09:02) Itching Medication List - Last Reconciled 06/07/24 by Ada Flores MD blood pressure monitor (Blood Pressure Kit) As directed bupropion HCl SR (Wellbutrin SR) 150 mg PO BID cholecalciferol (vitamin D3) 50 mcg PO DAILY cyclobenzaprine 5 mg PO BEDTIME PRN epinephrine (EpiPen 2-Vic) 0.3 mg (0.3 mL) IM Q10M PRN hydrocortisone 2.5% (Proctosol HC) 1 appl [place] BID-QID PRN lisinopril 20 mg PO DAILY 90 days [id number] mcg (Centrum Silver Men) 1 tab PO DAILY sennosides-docusate sodium 8.6-50 mg (Senna Plus) 2 tab-caps (2 x 8.6-50 mg) PO BEDTIME Tobacco use date assessed: 04/03/24 Dental Screening Dental Screen Date: 04/03/24 HPI Rectal bleeding HPI Details 54-year-old overweight male smoker with a history of hypertension and lumbar degenerative disc disease coming in for follow-up last seen in March 2024. Received a call from the Urgent Center as the patient has been having rectal bleeding. Patient's last colonoscopy was done in 2015 and 2021. 4 weeks ago woke with blood in the bedding , , the next time tuesday [facility] Medical History (Updated 06/07/24 @ 09:30 by Ada Flores MD) Hypertension Nicotine dependence, cigarettes, uncomplicated Tubular adenoma of colon Bilateral hand numbness Right rib fracture Fracture of right tibia and fibula Degenerative disc disease Vitamin D deficiency Overweight (BMI 25.0-29.9) Surgical History History of cervical spinal surgery History of surgery on lower extremity History of excision of pilonidal cyst History of colonoscopy Family History Mother Lung cancer History of [facility] Father Prostate cancer Sister Auto immune neutropenia Sister No problems noted. Brother Heart attack Daughter No problems noted. Maternal Uncle CAD (coronary artery disease) Social History Housing: Apartment Alcohol intake: current Alcohol intake frequency: does not drink Patient Tobacco Use Status: Current everyday Tobacco user Tobacco use type: Cigarette Cigarettes Per Day: 20 Years Smoked: onset 20yo, 1ppd x 33yrs, 30pyh e-Cigarette/Vaping Use: Never Used Second Hand Smoke Exposure: Yes service: No Current occupational status: employed Cognitive needs: No Hearing needs: No Vision needs: No Questionnaire PHQ-9 Over the last 2 weeks, how often have you been bothered by any of the following problems? 1. Little interest or pleasure in doing things: not at all 2. Feeling down, depressed, or hopeless: not at all 3. Trouble falling or staying asleep, or sleeping too much: not at all 4. Feeling tired or having little energy: not at all 5. Poor appetite or overeating: not at all 6. Feeling bad about yourself - or that you are a failure or have let yourself or your family down: not at all 7. Trouble concentrating on things, such as reading the newspaper or watching television: not at all 8. Moving or speaking so slowly that other people could have noticed. Or the opposite - being so fidgety or restless that you have been moving around a lot more than usual: not at all 9. Thoughts that you would be better off or of hurting yourself in some way: not at all Total score: 0 Depression Screening Interpretation: Negative Depression Screening Done: Yes Source: Developed by Drs. Riley Fair, Miracle Ruiz, Bear Donato and colleagues, with an educational mani from [employer]. Thrive Questionnaire Date Thrive assessed: 04/03/24 AUDIT C Alcohol Use Questionnaire (AUDIT-C) 1. How often do you have a drink containing alcohol?: Monthly or less 2. How many drinks containing alcohol do you have on a typical day when you are drinking?: 1 or 2 3. How often do you have six or more drinks on one occasion?: Never Total Score: 1 SHALONDA-7 AMB Questionnaire SHALONDA-7 Date SHALONDA - 7 assessed: 04/03/24 Source: Developed by Drs. Riley Fair, Miracle Ruiz, Bear Doanto and colleagues, with an educational mani from [employer]. Physical exam (Primary Care) Vital Signs: Last Vital Signs Pulse 81 06/07/24 09:02 BP 138/88 06/07/24 09:02 Pulse Ox 98 06/07/24 09:02 Oxygen Delivery Method Room Air 06/07/24 09:02 BMI result Body Mass Index 28.1 Tobacco/Smoking Status: Tobacco use Status Tobacco use date assessed 04/03/24 06/07/24 08:55 Patient Tobacco Use Status Current everyday Tobacco 06/07/24 08:55 Tobacco use type Cigarette 06/07/24 08:55 e-Cigarette/Vaping Use Never Used 06/07/24 08:55 PHQ-9: PHQ-9 Score PHQ-9: Total score 0 06/07/24 09:05 Depression Screening Interpretation: Negative Thrive Assessment: Date of Thrive Assessment Date Thrive assessed 04/03/24 06/07/24 08:55 Const General: alert; No acute distress Eyes Conjunctivae: conjunctivae normal Resp Auscultation: clear to auscultation bilaterally Cardio Rate: regular rate Rhythm: regular rhythm GI Other: Rectal Exam guaiac negative but multiple hemorrhoids seen x5 Extrem General: Yes normal to inspection and No edema Assessment and Plan Assessment & Plan (1) Rectal bleeding: Code(s): K62.5 - Hemorrhage of anus and rectum Plan: Discussed about the possibility of rectal bleeding from hemorrhoids to serious problems like cancers but patient had colon test 2021 (2) Hypertension: Code(s): I10 - Essential (primary) hypertension Qualifiers: Hypertension type: primary hypertension Qualified Code(s): I10 - Essential (primary) hypertension Plan: Continue with blood pressure medication. Decrease salt intake and exercise on lisinopril 20 mg once a day (3) Nicotine dependence, cigarettes, uncomplicated: Comment: (current smoker - onset 20yo, 1ppd x 34yrs, 30pyh, + fam hx lung CA mom) Code(s): F17.210 - Nicotine dependence, cigarettes, uncomplicated Plan: Patient is strongly advised to stop smoking! (4) Tubular adenoma of colon: Comment: (TA on 2015 scope, Normal 2021 scope - repeat 10yr) Code(s): D12.6 - Benign neoplasm of colon, unspecified Plan: Colonoscopy done in 10/03/[address] Osmar new (5) Constipation: Code(s): K59.00 - Constipation, unspecified Plan: Three rules for constipation 1. Diet need to have a high fiber diet less of meat 2. Increase oral fluids 3. Exercise discussed about less animal proteins in the diet (6) Bleeding hemorrhoids: Code(s): K64.9 - Unspecified hemorrhoids Plan: Proctosol HC sent. Discussed and stressed the importance that after a month if the bleeding persist that the patient has to let me know. Concern that we can not just presume it is hemorrhoids and will need to get boiler or engine operator involved. Medications: New hydrocortisone 2.5% (Proctosol HC) 1 appl WI BID-QID PRN 30 grams 0RF hemorrhoids K64.9 - Unspecified hemorrhoids sennosides-docusate sodium 8.6-50 mg (Senna Plus) 2 tab-caps (2 x 8.6-50 mg) PO BEDTIME 60 caps 5RF K59.00 - Constipation, unspecified Coding Level of Care Code Est Pt Level 4 (83285) Diagnoses Rectal bleeding K62.5 Primary hypertension I10 Hypertension type: primary hypertension Nicotine dependence, cigarettes, uncomplicated F17.210 Tubular adenoma of colon D12.6 Constipation K59.00 Bleeding hemorrhoids K64.9 Additional Codes PHQ-9 - 78193 - PHQ-9 Billing: ([id number])
[2024-06-07 09:02] VITALS: BP 138/88; PULSE 81; O2SAT 98; BMI 28.1
== END 2024-06-07 09:37 | disposition home or self-care (01) ==
PROVIDERS: PCP Internal Medicine; Visit Provider Internal Medicine
DX: I10 Essential (primary) hypertension (principal); K62.5 Hemorrhage of anus and rectum; F17.210 Nicotine dependence, cigarettes, uncomplicated; D12.6 Benign neoplasm of colon, unspecified; K59.00 Constipation, unspecified; K64.9 Unspecified hemorrhoids
CPT/HCPCS: 99214

== ENCOUNTER 2024-07-18 10:57 | Outpatient (REF) | payer BC, SELFPAY ==
--- NOTE | ~2024-07-18 | CT_ITS ---
EXAMINATION: CT CHEST LOW-DOSE SCREENING WITHOUT CONTRAST CLINICAL HISTORY: Asymptomatic patient meeting criteria for lung screening. Nicotine dependence. PATIENT PACK-YEAR HISTORY: 32 Current Smoker: Yes If former smoker, years since quitting: Not applicable. COMPARISON: CT lung screening 07/15/2023. TECHNIQUE: Multidetector volumetric non-contrast CT imaging of the chest was obtained on a Siemens SOMATOM Definition scanner using low-dose screening CT technique. Axial thin section 0.625 mm reformations in soft tissue and lung windows were obtained. Sagittal and coronal reformations were obtained. Axial MIP images were also created and reviewed. RECONSTRUCTED WIDTH: 1.25 mm x 1.[address] examination was performed using dose optimization techniques as appropriate, variously including the following: *Automated exposure control *Adjustment of mA and/or kV according to patient size (this includes techniques or standardized protocols for targeted exams where dose is matched to indication/reason for exam; i.e. extremities or head) *Use of iterative reconstruction technique TOTAL EXAM DLP: 58 mGy-cm. CTDIvol: 1.66 mGy. FINDINGS: PULMONARY NODULES: 3 mm subpleural right upper lobe nodule is unchanged (5:90 compare prior 6:111). No new, increasing sized or suspicious nodules are seen. LUNGS: Lungs bilaterally symmetrically expanded. There is mild emphysema and bronchial thickening. No effusion or pneumothorax. Central airways patent. LYMPHATIC STRUCTURES: No mediastinal, hilar or axillary adenopathy or free fluid collection. THYROID GLAND: Unremarkable to the extent seen. CARDIOVASCULAR STRUCTURES: Aortic and heart size normal. No significant coronary artery calcifications. No pericardial effusion. UPPER ABDOMEN: Included portions of the solid organs in the upper abdomen unremarkable on noncontrast imaging. OSSEOUS STRUCTURES: No suspicious focal findings. SPINAL COMPRESSION: Absent. CT/CT lung screening IMPRESSION: No findings suspicious for malignancy/pulmonary nodule(s)/other. LUNG-RADS CATEGORY ASSESSMENT: 2: Benign. INCIDENTAL FINDINGS (S CATEGORY): Finding: No incidental findings. Significance category: Normal or normal variant. RECOMMENDATION: Low dose lung CT in one year. Visual estimate of coronary calcified plaque burden: None. However, this exam cannot replace a dedicated cardiac CT calcium score for accurate assessment. Electronically signed by: Chino Costa MD 07/20/2024 09:42 PM EDT
== END 2024-07-18 10:58 | disposition home or self-care (01) ==
LOC: HO.CT 10:57
PROVIDERS: PCP Internal Medicine; Visit Provider Physician Assistant Medical
DX: Z12.2 Encounter for screening for malignant neoplasm of respiratory organs (principal); F17.210 Nicotine dependence, cigarettes, uncomplicated
CPT/HCPCS: 71271

== ENCOUNTER 2024-07-23 12:09 | Outpatient (AMB) | payer BC, SELFPAY ==
--- NOTE | 2024-07-23 12:33 | A.OFFVIS_ITS ---
Vital Signs 07/23/24 12:39 Height 5 ft 9 in Weight 190 lb BMI 28.1 BP 140/78 H Blood Pressure Location Lt brachial Position Sitting Pulse 78 Pulse Source Monitor Intake Visit Reasons: 1Y follow up Allergies hydrochlorothiazide Allergy (Unknown, Verified 06/07/24 09:02) Rash oxycodone [From OxyContin] Allergy (Verified 06/07/24 09:02) Itching Medication List - Last Reconciled 07/23/24 by Jad Granda MD blood pressure monitor (Blood Pressure Kit) As directed bupropion HCl SR (Wellbutrin SR) 150 mg PO BID cholecalciferol (vitamin D3) 50 mcg PO DAILY epinephrine (EpiPen 2-Vic) 0.3 mg (0.3 mL) IM Q10M PRN lisinopril 20 mg PO DAILY 90 days [id number] mcg (Centrum Silver Men) 1 tab PO DAILY sennosides-docusate sodium 8.6-50 mg (Senna Plus) 2 tab-caps (2 x 8.6-50 mg) PO BEDTIME HPI Comments Details: Rhys returns for follow-up. Long-time smoker and still smoking. In the past, he was seen regarding palpitations and Holter had shown supraventricular ectopy. He also underwent a calcium score CT scan, but the score was zero. Overall, he states he is doing fine. No complaints like angina or shortness of breath or in fact anything cardiac sounding. [facility] Medical History (Updated 06/07/24 @ 09:30 by Ada Flores MD) Hypertension Nicotine dependence, cigarettes, uncomplicated Tubular adenoma of colon Bilateral hand numbness Right rib fracture Fracture of right tibia and fibula Degenerative disc disease Vitamin D deficiency Overweight (BMI 25.0-29.9) Surgical History History of cervical spinal surgery History of surgery on lower extremity History of excision of pilonidal cyst History of colonoscopy Family History Mother Lung cancer History of SIADH Father Prostate cancer Sister Auto immune neutropenia Sister No problems noted. Brother Heart attack Daughter No problems noted. Maternal Uncle CAD (coronary artery disease) Social History Housing: Apartment Alcohol intake: current Alcohol intake frequency: does not drink Patient Tobacco Use Status: Current everyday Tobacco user Tobacco use type: Cigarette Cigarettes Per Day: 20 Years Smoked: onset 20yo, 1ppd x 33yrs, 30pyh e-Cigarette/Vaping Use: Never Used Second Hand Smoke Exposure: Yes service: No Current occupational status: employed Cognitive needs: No Hearing needs: No Vision needs: No Review of Systems Const Denies weakness ENT Denies dizziness Card Denies chest pain, Denies chest pain with activity, Denies syncope, Denies rapid heart rate, Denies pedal edema, Denies edema, Denies leg edema, Denies lightheadedness, Denies palpitations, Denies dyspnea, Denies dyspnea on exertion and Denies orthopnea Resp Denies cough, Denies dyspnea and Denies dyspnea on exertion GI Denies hematochezia and Denies change in stool character Musc Denies abnormal gait, Denies muscle cramps, Denies muscle weakness, Denies numbness, Denies radiating pain into limb and Denies tingling Neuro Denies abnormal gait, Denies dizziness, Denies syncope, Denies numbness, Denies tingling and Denies weakness Endo Denies palpitations Physical Exam Vital Signs: Last Vital Signs Pulse 78 07/23/24 12:39 BP 140/78 H 07/23/24 12:39 BMI result Body Mass Index 28.1 Const General: comfortable and no acute distress Orientation/consciousness: patient oriented x3 HEENT Other: Unremarkable Head: Yes normal to inspection Neck Neck: Yes normal visual inspection Chest Chest palpation & inspection: normal inspection of the chest Resp Auscultation: clear to auscultation bilaterally Cardio Palpation: normal PMI Heart sounds: S1 normal heart sound present, S2 normal heart sound present, no gallops, no murmurs and no rubs GI Palpation (GI): Soft to palpation Back/Spine/Pelvis Other: unremarkable Skin General skin exam: no rashes or lesions noted Neuro General: patient oriented x3 Extrem General: Yes normal to inspection Psych Mental Status: mental status grossly normal Office Procedures EKG Details: EKG with underlying sinus rhythm at 78/Min; supraventricular ectopy but otherwise unremarkable. [id number], Complete Assessment & Plan Assessment & Plan (1) Premature atrial contraction: Code(s): I49.1 - Atrial premature depolarization Category: Medical (2) Tobacco abuse: Code(s): Z72.0 - Tobacco use Category: Medical (3) Hypertension: Code(s): I10 - Essential (primary) hypertension Category: Medical Qualifiers: Hypertension type: primary hypertension Qualified Code(s): I10 - Essential (primary) hypertension (4) Smoking: Code(s): F17.200 - Nicotine dependence, unspecified, uncomplicated Category: Social Hx Plan Cardiac studies reviewed. Echocardiogram is unremarkable. LVEF 60-65%. No significant valvular issues or other abnormalities. Holter shows frequent premature supraventricular ectopy. Coronary calcium score-0. Based on the above, no evidence of coronary disease or cardiomyopathy. Smoking is the main issue and strongly advised him to quit completely. There is increased risk of vascular disease and various other issues with long-term smoking and we discussed that today. With regard to blood pressure, he states PCP had changed some meds. No further changes made today. With regard to supraventricular ectopy, again likely related to smoking. Increased risk of other atrial arrhythmias in the future. No specific management at this time. Coding Level of Care Code Est Pt Level 3 (07701) Diagnoses Premature atrial contraction I49.1 Tobacco abuse Z72.0 Primary hypertension I10 Hypertension type: primary hypertension Smoking F17.200 CPT Codes EKG - CPT: 68348-[id number], Complete ([id number])
[2024-07-23 12:39] VITALS: BP 140/78; PULSE 78; BMI 28.1
== END 2024-07-23 12:49 | disposition home or self-care (01) ==
PROVIDERS: PCP Internal Medicine; Visit Provider Internal Medicine
DX: I49.1 Atrial premature depolarization (principal); Z72.0 Tobacco use; I10 Essential (primary) hypertension; F17.200 Nicotine dependence, unspecified, uncomplicated
CPT/HCPCS: 93010; 99213

== ENCOUNTER → 2024-07-23 12:09 | Outpatient (BNVA) | payer BC, SELFPAY | PROVIDERS: PCP Internal Medicine; Visit Provider Internal Medicine | DX: I49.1 Atrial premature depolarization (principal); I10 Essential (primary) hypertension; F17.210 Nicotine dependence, cigarettes, uncomplicated | CPT/HCPCS: 93005 ==

== ENCOUNTER 2024-09-06 12:04 | Outpatient (AMB) | payer BC, SELFPAY ==
[2024-09-06 12:34] VITALS: BP 138/72; PULSE 72; O2SAT 98; BMI 27.8
--- NOTE | 2024-09-06 12:34 | A.OFFPC_ITS ---
Vital Signs 09/06/24 12:34 Height 5 ft 9 in Weight 188 lb BMI 27.8 BP 138/72 Blood Pressure Location Lt brachial Position Sitting Pulse 72 Pulse Source Pulse Oximeter Pulse Oximetry (%) 98 Oxygen Delivery Method Room Air Intake Visit Reasons: Annual Exam/HTN [employer] Grade [employer] Required: No Accompanied by: Self / Same As Patient Allergies hydrochlorothiazide Allergy (Unknown, Verified 09/06/24 12:35) Rash oxycodone [From OxyContin] Allergy (Verified 09/06/24 12:35) Itching Medication List - Last Reconciled 09/06/24 by Ada Flores MD blood pressure monitor (Blood Pressure Kit) As directed bupropion HCl SR (Wellbutrin SR) 150 mg PO BID cholecalciferol (vitamin D3) 50 mcg PO DAILY epinephrine (EpiPen 2-Vic) 0.3 mg (0.3 mL) IM Q10M PRN lisinopril 20 mg PO DAILY 90 days [id number] mcg (Centrum Silver Men) 1 tab PO DAILY sennosides-docusate sodium 8.6-50 mg (Senna Plus) 2 tab-caps (2 x 8.6-50 mg) PO BEDTIME Tobacco use date assessed: 04/03/24 Dental Screening Dental Screen Date: 04/03/24 HPI Annual Exam/HTN HPI Details 54 year old overweight male smoker with a history of hypertension tubular adenoma of the colon constipation bleeding hemorrhoids coming in for annual physical. Last seen in May 2024. Review of the notes had the COVID shot July seen by cardiology follow-up low calcium CT scoring echocardiogram normal. Patient had a CT of the chest 07/20/2024 yearly testing. [facility] Medical History (Updated 09/06/24 @ 12:41 by Ada Flores MD) Scalp lesion Hand numbness Radicular pain of upper extremity Epigastric pain Hemorrhoids Bleeding hemorrhoids Tubular adenoma of colon Hypertension Nicotine dependence, cigarettes, uncomplicated Bilateral hand numbness Right rib fracture Fracture of right tibia and fibula Degenerative disc disease Vitamin D deficiency Overweight (BMI 25.0-29.9) Surgical History History of cervical spinal surgery History of surgery on lower extremity History of excision of pilonidal cyst History of colonoscopy Family History Mother Lung cancer History of [facility] Father Prostate cancer Sister Auto immune neutropenia Sister No problems noted. Brother Heart attack Daughter No problems noted. Maternal Uncle CAD (coronary artery disease) Social History (Updated 09/06/24 @ 12:46 by Ada Flores MD) Housing: Apartment Alcohol intake: current Comment: 2-3 a day Patient Tobacco Use Status: Current everyday Tobacco user Tobacco use type: Cigarette Cigarettes Per Day: 20 Years Smoked: onset 20yo, 1ppd x 33yrs, 30pyh (3/4 pack a day) e-Cigarette/Vaping Use: Never Used Second Hand Smoke Exposure: Yes service: No Current occupational status: employed Cognitive needs: No Hearing needs: No Vision needs: No Questionnaire PHQ-9 Over the last 2 weeks, how often have you been bothered by any of the following problems? 1. Little interest or pleasure in doing things: not at all 2. Feeling down, depressed, or hopeless: not at all 3. Trouble falling or staying asleep, or sleeping too much: not at all 4. Feeling tired or having little energy: not at all 5. Poor appetite or overeating: not at all 6. Feeling bad about yourself - or that you are a failure or have let yourself or your family down: not at all 7. Trouble concentrating on things, such as reading the newspaper or watching television: not at all 8. Moving or speaking so slowly that other people could have noticed. Or the opposite - being so fidgety or restless that you have been moving around a lot more than usual: not at all 9. Thoughts that you would be better off or of hurting yourself in some way: not at all Total score: 0 Source: Developed by Drs. Riley Fair, Miracle Ruiz, Bear Donato and colleagues, with an educational mani from [employer]. Thrive Questionnaire Date Thrive assessed: 08/30/24 I am a: Patient What is your living situation today?: I have a steady place to live Within the past 12 months, did the food you bought not last and you didn't have the money to get more?: Never true Within the past 12 months, did you worry whether your food would run out before you got money to buy more?: Never true Do you have trouble paying for medicines?: No Do you have trouble getting transportation to medical appointments?: No Do you have trouble paying your heating and electricity bill?: No Do you have trouble taking care of your child, family member or friend?: No Do you have trouble with day-to-day activities such as bathing, preparing meals, shopping, managing finances, etc.?: No Are you currently unemployed and looking for a job?: No Are you interested in more education?: No Please select the resources that you would like help with: None Currently or been in a relationship where the following occur: No concerns reported THRIVE Score: 0 AUDIT C Alcohol Use Questionnaire (AUDIT-C) 1. How often do you have a drink containing alcohol?: 4 or more times a week 2. How many drinks containing alcohol do you have on a typical day when you are drinking?: 3 or 4 3. How often do you have six or more drinks on one occasion?: Monthly Total Score: 7 SHALODNA-7 AMB Questionnaire SHALONDA-7 Date SHALONDA - 7 assessed: 04/03/24 Feeling nervous, anxious, or on edge: 0 = Not at all Not being able to stop or control worryin = Not at all Worrying too much about different things: 0 = Not at all Trouble relaxin = Not at all Being so restless that it is hard to sit still: 0 = Not at all Becoming easily annoyed or irritable: 1 = Several days Feeling afraid as if something awful might happen: 0 = Not at all Total SHALONDA-7 score (0-4 normal; 5-9 mild; 10-14 moderate; 15-21 severe): 1 Source: Developed by Drs. Riley Fair, Miracle Ruiz, Bear Donato and colleagues, with an educational mani from [employer]. Review of Systems Const Denies poor appetite and Denies weakness Eyes Denies no additional complaints ENT Reports Normal hearing present, Denies dizziness, Denies nasal congestion, Denies tinnitus and Denies sore throat Card Denies chest pain, Denies syncope, Denies rapid heart rate and Denies dyspnea Resp Denies cough and Denies dyspnea GI Denies change in stool character, Reports constipation, Denies diarrhea, Denies nausea and Denies vomiting Denies dysuria and Denies urinary frequency Neuro Reports Normal hearing present, Denies confusion, Denies dizziness, Denies syncope and Denies weakness Psych Denies confusion Physical exam (Primary Care) Vital Signs: Last Vital Signs Pulse 72 09/06/24 12:34 BP 138/72 09/06/24 12:34 Pulse Ox 98 09/06/24 12:34 Oxygen Delivery Method Room Air 09/06/24 12:34 BMI result Body Mass Index 27.8 Tobacco/Smoking Status: Tobacco use Status Tobacco use date assessed 04/03/24 09/06/24 12:38 Patient Tobacco Use Status Current everyday Tobacco 09/06/24 12:46 Tobacco use type Cigarette 09/06/24 12:46 e-Cigarette/Vaping Use Never Used 09/06/24 12:46 PHQ-9: PHQ-9 Score PHQ-9: Total score 0 09/06/24 12:38 Thrive Assessment: Date of Thrive Assessment Date Thrive assessed 08/30/24 09/06/24 12:38 Currently or been in a relationship where the following occur: No concerns reported Const General: No confusion Orientation/consciousness: No confusion Neuro General: No confusion Cranial nerves: Yes Normal hearing present Coding Level of Care Code Est Pt Prev Care 40-64y(45336) Diagnoses Annual physical exam Z00.00 Slow transit constipation K59.01 Constipation type: slow transit constipation Rectal bleeding K62.5 Palpitations R00.2 Primary hypertension I10 Hypertension type: primary hypertension Impaired fasting blood sugar R73.01 Nicotine dependence, cigarettes, uncomplicated F17.210 Generalized anxiety disorder F41.1 Overweight (BMI 25.0-29.9) E66.3 Assessment & Plan Assessment & Plan (1) Annual physical exam: Code(s): Z00.00 - Encounter for general adult medical examination without abnormal findings Category: Medical Plan: Patient is advised to eat healthy, keep well hydrated, keep active and have adequate sleep. (2) Constipation: Code(s): K59.00 - Constipation, unspecified Category: Medical Qualifiers: Constipation type: slow transit constipation Qualified Code(s): K59.01 - Slow transit constipation Plan: Three rules for constipation 1. Diet need to have a high fiber diet less of meat 2. Increase oral fluids 3. Exercise (3) Rectal bleeding: Code(s): K62.5 - Hemorrhage of anus and rectum Category: Medical Plan: Discussed about avoiding constipation patient is up-to-date with colonoscopy (4) Palpitations: Code(s): R00.2 - Palpitations Category: Medical Plan: Patient has met with Cardiology workup normal (5) Hypertension: Code(s): I10 - Essential (primary) hypertension Category: Medical Qualifiers: Hypertension type: primary hypertension Qualified Code(s): I10 - Essential (primary) hypertension Plan: Continue with blood pressure medication. Decrease salt intake and exercise on lisinopril 20 mg once a day (6) Impaired fasting blood sugar: Code(s): R73.01 - Impaired fasting glucose Category: Medical Plan: Decrease the amount of carbohydrate intake, pasta, bread, rice and potatoes are all sugar and that is aside from all the sweet stuff, remember that fruits are good but they are Sweet also. (7) Nicotine dependence, cigarettes, uncomplicated: Comment: (current smoker - onset 20yo, 1ppd x 34yrs, 30pyh, + fam hx lung CA mom) 08/03/2024 Code(s): F17.210 - Nicotine dependence, cigarettes, uncomplicated Category: Medical Plan: 08/03/[address] scan (8) Generalized anxiety disorder: Code(s): F41.1 - Generalized anxiety disorder Category: Medical Plan: Continue with present medication (9) Overweight (BMI 25.0-29.9): Code(s): E66.3 - Overweight Category: Medical Plan: Diet and exercise Medications: New psyllium husk (Fiber (psyllium husk)) 1.04 grams (2 x 0.52 gram) PO DAILY 60 caps 3RF Refilled hydrocortisone 2.5% (Proctosol HC) 1 appl [place] BID-QID PRN 30 grams 0RF hemorrhoids K64.9 - Unspecified hemorrhoids
== END 2024-09-06 13:03 | disposition home or self-care (01) ==
PROVIDERS: PCP Internal Medicine; Visit Provider Internal Medicine
DX: Z00.00 Encounter for general adult medical examination without abnormal findings (principal); K59.01 Slow transit constipation; K62.5 Hemorrhage of anus and rectum; R00.2 Palpitations; I10 Essential (primary) hypertension; R73.01 Impaired fasting glucose; F17.210 Nicotine dependence, cigarettes, uncomplicated; F41.1 Generalized anxiety disorder; E66.3 Overweight

== ENCOUNTER → 2024-09-06 12:04 | Outpatient (BNVA) | payer BC, SELFPAY | PROVIDERS: PCP Internal Medicine; Visit Provider Internal Medicine ==

== ENCOUNTER 2025-03-07 12:36 | Outpatient (AMB) | payer BC, SELFPAY ==
[2025-03-07 12:46] VITALS: BP 144/80; PULSE 90; TEMP 36.7; O2SAT 98; BMI 27.6
--- NOTE | 2025-03-07 12:46 | MHC.OFFVIS ---
Vital Signs 03/07/25 12:46 Height 5 ft 9 in Blood Pressure Location Lt brachial Position Sitting Pulse Source Pulse Oximeter Temp Source Temporal Artery Scan Oxygen Delivery Method Room Air Intake Visit Reasons: Hypertension Allergies hydrochlorothiazide Allergy (Unknown, Verified 09/06/24 12:35) Rash oxycodone [From OxyContin] Allergy (Verified 09/06/24 12:35) Itching PFSH Medical History (Updated 09/06/24 @ 12:41 by Ada Flores MD) Scalp lesion Hand numbness Radicular pain of upper extremity Epigastric pain Hemorrhoids Bleeding hemorrhoids Tubular adenoma of colon Hypertension Nicotine dependence, cigarettes, uncomplicated Bilateral hand numbness Right rib fracture Fracture of right tibia and fibula Degenerative disc disease Vitamin D deficiency Overweight (BMI 25.0-29.9) Surgical History History of cervical spinal surgery History of surgery on lower extremity History of excision of pilonidal cyst History of colonoscopy Family History Mother Lung cancer History of [facility] Father Prostate cancer Sister Auto immune neutropenia Sister No problems noted. Brother Heart attack Daughter No problems noted. Maternal Uncle CAD (coronary artery disease) Social History (Updated 09/06/24 @ 12:53 by Kami Zimmerman [facility]) Housing: Apartment Alcohol intake: current Comment: 2-3 a day Patient Tobacco Use Status: Current everyday Tobacco user Tobacco use type: Cigarette Cigarettes Per Day: 20 Years Smoked: onset 20yo, 1ppd x 33yrs, 30pyh (3/4 pack a day) e-Cigarette/Vaping Use: Never Used Second Hand Smoke Exposure: Yes service: No Current occupational status: employed Cognitive needs: No Hearing needs: No Vision needs: No Coding
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
[2025-03-07 13:09] VITALS: BP 130/60
== END 2025-03-07 13:17 | disposition home or self-care (01) ==
LOC: HO.HMCH 12:36
PROVIDERS: PCP Internal Medicine; Visit Provider Internal Medicine
DX: R73.01 Impaired fasting glucose (principal); F17.210 Nicotine dependence, cigarettes, uncomplicated; I10 Essential (primary) hypertension; F41.1 Generalized anxiety disorder

== ENCOUNTER → 2025-03-07 12:36 | Outpatient (BNVA) | payer BC, SELFPAY | PROVIDERS: PCP Internal Medicine; Visit Provider Internal Medicine | DX: I10 Essential (primary) hypertension (principal); R73.01 Impaired fasting glucose; F41.1 Generalized anxiety disorder; F17.210 Nicotine dependence, cigarettes, uncomplicated; Z79.899 Other long term (current) drug therapy | CPT/HCPCS: 96127 ==

== ENCOUNTER 2025-07-31 13:03 | Outpatient (AMB) | payer BC, SELFPAY ==
[2025-07-31 13:09] VITALS: BP 148/80; PULSE 94; TEMP 36.7; O2SAT 99; BMI 27.9
--- NOTE | 2025-07-31 13:09 | MHC.OFFWIV ---
Intake Vital Signs 07/31/25 13:09 Height 5 ft 9 in Weight 189 lb BMI 27.9 BP 148/80 H Blood Pressure Location Lt brachial Position Sitting Pulse 94 Pulse Source Pulse Oximeter Temp 98.1 F Temp Source Oral Pulse Oximetry (%) 99 Oxygen Delivery Method Room Air Intake Visit Reasons: ep back pain Intake Note: pt presents with lower back pain flare- back feels weak and unstable Patient Tobacco Use Status: Current everyday Tobacco user Allergies hydrochlorothiazide Allergy (Unknown, Verified 07/31/25 13:16) Rash oxycodone (From OxyContin) Allergy (Verified 07/31/25 13:16) Itching Medication List - Last Reconciled 07/31/25 by Marcin Alanis MD blood pressure monitor (Blood Pressure Kit) As directed bupropion HCl SR (Wellbutrin SR) 150 mg PO BID cholecalciferol (vitamin D3) 50 mcg PO DAILY cyclobenzaprine 5 mg PO BEDTIME PRN epinephrine (EpiPen 2-Vic) 0.3 mg (0.3 mL) IM Q10M PRN lisinopril 20 mg PO DAILY 90 days [id number] [id number] mcg (Centrum Silver Men) 1 tab PO DAILY Do you need a note to return to daycare/school/sports/work: Yes HPI ep back pain HPI Details History of Present Illness The patient is a 55 year old male presenting with lower back pain. Lower back pain: - Previous history of lower back pain with broad-based disc bulges at L3-L4, L2-L3, and T12-L1 noted in MRI from 2020. - Flare-up onset over the weekend before the visit; exacerbation noted when sitting on the toilet in the morning. - Symptoms at the mid and right side of the lower back, extending from hip to hip. - Pain alleviated temporarily with muscle relaxers and tramadol [ borrowed from significant other ], but persists; patient has no prescription of his own - Reports no tingling in legs, no bowel or urinary problems. - Patient feels unable to sit due to fear of inability to rise again, indicating severe discomfort. - Patient has not experienced significant pain upon palpation or pressing during exam and reports an echoing sensation instead of acute pain on probing. Social History: - Employed - Concern about work attendance due to pain and has FMLA paperwork to consider for future issues. - Adult daughter involved in health support. Diagnostic Results: - MRI (2020): Broad-based disc bulge L3-L4, L2-L3, and T12-L1. Problem List - Sever lumber pain and spasm - Lumber Disc disease Patient Instructions - Take prescribed medications as directed. - Utilize tramadol for back pain if needed. - Consider using diclofenac for inflammation. - Take prednisone for inflammation as prescribed. - rest is advised. Review of Systems - General: No fever no chills - Neurological: No headaches no dizziness - Ear nose throat: No sore throat no hearing difficulty no ear pain - Cardiovascular: No syncope, no chest pain, no palpitations - Gastrointestinal: No nausea vomiting or diarrhea - Endocrine: No polyuria polydipsia no heat intolerance - Genitourinary: No dysuria , no blood in urine Physical Exam - General: seems to be in distress as unable to sit due to pain - HEENT: No acute findings - Neck: Supple - Respiratory system: Able to talk in full sentences, no audible wheeze - Gastrointestinal: No pain - Extremities: No new findings - Back : no pain with percussion over lumber area, discomfort over para spinal area - 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[employer]IC: Alert awake oriented x3 motor intact , full neruo exam was not performed as patient dont want to sit down - Skin: Normal turgor [facility] Medical History Scalp lesion Hand numbness Radicular pain of upper extremity Epigastric pain Hemorrhoids Bleeding hemorrhoids Tubular adenoma of colon Hypertension Nicotine dependence, cigarettes, uncomplicated Bilateral hand numbness Right rib fracture Fracture of right tibia and fibula Degenerative disc disease Vitamin D deficiency Overweight (BMI 25.0-29.9) Surgical History History of cervical spinal surgery History of surgery on lower extremity History of excision of pilonidal cyst History of colonoscopy Family History Mother Lung cancer History of [facility] Father Prostate cancer Sister Auto immune neutropenia Sister No problems noted. Brother Heart attack Daughter No problems noted. Maternal Uncle CAD (coronary artery disease) Social History Housing: Apartment Alcohol intake: current Comment: 2-3 a day Patient Tobacco Use Status: Current everyday Tobacco user Tobacco use type: Cigarette Cigarettes Per Day: 20 Years Smoked: onset 20yo, 1ppd x 33yrs, 30pyh (3/4 pack a day) e-Cigarette/Vaping Use: Never Used Second Hand Smoke Exposure: Yes service: No Current occupational status: employed Cognitive needs: No Hearing needs: No Vision needs: No Physical Exam Vital Signs: Last Vital Signs Temp 98.1 F 07/31/25 13:09 Pulse 94 07/31/25 13:09 BP 148/80 H 07/31/25 13:09 Pulse Ox 99 07/31/25 13:09 Oxygen Delivery Method Room Air 07/31/25 13:09 BMI result Body Mass Index 27.9 Assessment & Plan Assessment & Plan (1) Lumbar degenerative disc disease: Code(s): M51.36 - Other intervertebral disc degeneration, lumbar region Qualifiers: Disc-related pain type: discogenic back pain only Qualified Code(s): M51.360 - Other intervertebral disc degeneration, lumbar region with discogenic back pain only (2) Herniated nucleus pulposus, lumbar: Code(s): M51.26 - Other intervertebral disc displacement, lumbar region (3) Lumbar paraspinal muscle spasm: Code(s): M62.830 - Muscle spasm of back (4) Pain management: Code(s): R52 - Pain, unspecified Plan History of Present Illness The patient is a 55 year old male presenting with lower back pain. Lower back pain: - Previous history of lower back pain with broad-based disc bulges at L3-L4, L2-L3, and T12-L1 noted in MRI from 2020. - Flare-up onset over the weekend before the visit; exacerbation noted when sitting on the toilet in the morning. - Symptoms at the mid and right side of the lower back, extending from hip to hip. - Pain alleviated temporarily with muscle relaxers and tramadol [ borrowed from significant other ], but persists; patient has no prescription of his own - Reports no tingling in legs, no bowel or urinary problems. - Patient feels unable to sit due to fear of inability to rise again, indicating severe discomfort. - Patient has not experienced significant pain upon palpation or pressing during exam and reports an echoing sensation instead of acute pain on probing. Social History: - Employed - Concern about work attendance due to pain and has [facility] paperwork to consider for future issues. - Adult daughter involved in health support. Diagnostic Results: - MRI (2020): Broad-based disc bulge L3-L4, L2-L3, and T12-L1. Problem List - Sever lumber pain and spasm - Lumber Disc disease Patient Instructions - Take prescribed medications as directed. - Utilize tramadol for back pain if needed. - Consider using diclofenac for inflammation. - Take prednisone for inflammation as prescribed. - rest is advised. Medications: New prednisone 10 mg PO DAILY 5 tabs 0RF 5 days tramadol 50 mg PO BEDTIME PRN 5 tabs 0RF pain 5 days diclofenac sodium take it with food 75 mg PO BID 20 tabs 0RF pain 10 days baclofen 5 mg PO BEDTIME 14 tabs 0RF Discontinued cyclobenzaprine Discontinued Reason: Doctor's Order 5 mg PO BEDTIME PRN 30 tabs 0RF muscle spasm M48.02 - Spinal stenosis, cervical region Coding Level of Care Code Est Pt Level 4 (17159) Diagnoses Degeneration of intervertebral disc of lumbar region with discogenic back pain M51.360 Disc-related pain type: discogenic back pain only Herniated nucleus pulposus, lumbar M51.26 Lumbar paraspinal muscle spasm M62.830 Pain management R52
--- OUTSIDE RECORDS SUMMARY | 2025-07-31 16:33 | XMS_ITS | Patient Health Record ---
Author Organization [facility] Address [address] [place] [address] Care Team Providers Care Paper Rewinder Name Role Phone Po Ada WILLS Primary Care Provider Chente Vuong Jr Unavailable Allergies Allergen (clinical drug ingredient) Drug/Non Drug Allergy documented on EMR Reaction Allergy Type Onset Date Status oxycodone Oxycodone itchy Drug Allergy Active Reason For Referral No Information Medications Medication SIG (Take, Route, Frequency, Duration) Notes Start Date End Date Status MiraLax (colon prep) 17 GM/SCOOP mixed with Gatorade or Crystal Light Orally begin at 5:00 p.m. the day before the procedure for 1 day 10/29/2021 Active Lisinopril 5 MG Oral for 90 Ac tive Vitamin D Active Multivitamin Active Ibuprofen 200 MG 1 tablet with food o r milk as needed Orally as needed Active Immunizations Vaccine Route Administration Date Status Comme nts Influenza Unknown 08/14/2021 Administered Social History Alcohol Screen Question Answer Notes Did you have a drink contain ing alcohol in the past year? Yes How often did you have a dri nk containing alcohol in the past year? 4 or more times a week (4 points) How many drinks did you have on a typical day when you were drinking in the past year? 3 or 4 drinks (1 point) How often did you have 6 or more drinks on one occasion in the past year? Never (0 point) Points 5 Interpretation Positive Problems Problem Type SNOMED Code ICD Code Onset Dates Problem Status W/U Status Risk Notes Problem 28856817 Rectal bleeding (K62.5) Active confirmed Problem 094738607 Personal history of colonic polyps (Z86.010) Active confirmed Problem 944279289 USP (current) use of non-steroidal anti-inflamma tories (NSAID) (Z79.1) Active confirmed Problem History of polyp of colon (393328053) History of colon polyps (Z86.010) Active confirmed Plan Of Treatment Future Test Test Name Order Date COLONOSCOPY 04/07/2016 COLONOSCOPY 10/29/2021 Insurance Providers Payer Name Payer Address Payer Phone Subscriber Number Group Number Insured Name Patient Relationship to Insured Coverage Start Date Coverage End Date [facility] [address] [place], [place] [id number] LAKSHMI BURLESON Self - patient is the insured Medical (General) History Medical History History ICD Code degenerative joint disease hypertension hx of broken leg Surgical History Surgery Date(Month/Year) pilonidal cyst excision Neck fusion tibula/fibula fractures ganglion cyst
== END 2025-07-31 13:43 | disposition home or self-care (01) ==
PROVIDERS: PCP Internal Medicine; Visit Provider Internal Medicine
DX: M51.360 Other intervertebral disc degeneration, lumbar region with discogenic back pain only (principal); M51.26 Other intervertebral disc displacement, lumbar region; M62.830 Muscle spasm of back; R52 Pain, unspecified

== ENCOUNTER 2025-08-01 10:05 | Outpatient (REF) | payer BC, SELFPAY ==
--- OUTSIDE RECORDS SUMMARY | 2025-08-01 11:56 | XMS_ITS | Clinical Summary ---
Author Organization [facility] Address [id number] [place] [id number] Care Team Providers Care Purification Director Name Role Phone Ada Flores MD Primary Care Provider Social History Tobacco Use Types Packs/Day Years Used Date Smoking Tobacco: Never Assessed Sex and Gender Information Value Date Recorded Sex Assigned at Not on file Legal Sex Male 5:14 PM EST Gender Identity Not on file Sexual Orientation Not on file Plan of Treatment Health Maintenance Due Date Last Done Comments DTaP,Tdap,and Td Vaccines (1 - Tdap) 1987 Hepatitis B Vaccines (1 of 3 - 19+ 3-dose series) 1987 Pneumococcal Vaccine: 50+ Ye ars (1 of 1 - PCV) 2018 Zoster Vaccines (1 of 2) 2018 Depression Screening 11/14/2024 COVID-19 Vaccine ( - 2023-2 5 season) 2025 Influenza Vaccine (#1) 2025 HIB Vaccines Aged Out No longer eligi ble based on patient's age to complete this topic HPV Vaccines Aged Out No longer eligi ble based on patient's age to complete this topic Hepatitis A Vaccines Aged Out No long er eligible based on patient's age to complete this topic IPV Vaccines Aged Out No longer eligi ble based on patient's age to complete this topic MMR Vaccines Aged Out No longer eligi ble based on patient's age to complete this topic Meningococcal ACWY Vaccine Aged Out N o longer eligible based on patient's age to complete this topic Meningococcal B Vaccine Aged Out No l onger eligible based on patient's age to complete this topic RSV Immunization Patients Un cassidy 20 months Aged Out No longer eligible b ased on patient's age to complete this topic Varicella Vaccines Aged Out No longer eligible based on patient's age to complete this topic Care Teams Purification Director Relationship Specialty Start Date End Date Ada Flores MD [address] [place] [address] [address] [facility] [place] [address] PCP - General Internal Medicine 08/29/19
--- OUTSIDE RECORDS SUMMARY | 2025-08-01 11:56 | XMS_ITS | Patient Health Record ---
Author Organization [facility] Address [address] [place] [address] Care Team Providers Care Green Inspector Name Role Phone Po Ada WILLS Primary Care Provider Chente Vuong Jr Unavailable [phone] Allergies Allergen (clinical drug ingredient) Drug/Non Drug [...] Problem Status W/U Status Risk Notes Problem 65202026 Rectal bleeding (K62.5) Active confirmed Problem 785728003 Personal history of colonic polyps (Z86.010) Active confirmed Problem 450640615 USP (current) use of non-steroidal anti-inflamma tories (NSAID) (Z79.1) Active confirmed Problem History of polyp of colon (509872287) History of colon polyps (Z86.010) Active confirmed Plan Of Treatment Future Test Test Name Order Date COLONOSCOPY 04/07/2016 COLONOSCOPY 10/29/2021 Insurance Providers Payer Name Payer Address Payer Phone Subscriber Number Group Number Insured Name Patient Relationship to Insured Coverage Start Date Coverage End Date [facility] [address] [place], [place] [id number] [phone] [id number] LAKSHMI BURLESON Self - patient is the insured Medical (General) History Medical History History ICD Code degenerative joint disease hypertension hx of broken leg Surgical History Surgery Date(Month/Year) pilonidal cyst excision Neck fusion tibula/fibula fractures ganglion cyst
[2025-08-01 13:02] LABS: MANUAL DIFF FLAG NO
[2025-08-01 13:12] LABS: Hematocrit 41.6 % (42.0-52.0); Hemoglobin 14.5 g/dl (14.0-18.0); Imm Gran Abs Auto 0.02 X10*3/uL (0.00-0.03); Imm Gran Pct Auto 0.3 % (0.0-0.4); Lymphocytes Absolute Auto 1.9 X10*3/uL (1.2-4.9); Mean Corpuscular HGB Conc 34.9 g/dl (31.0-36.0); Mean Corpuscular Hemoglobin 33.5 pg (27.0-33.0); Mean Corpuscular Volume 96.1 fL (80.0-98.0); NRBC Abs Auto 0.000 X10*3/uL (0.0-0.012); NRBC Pct Auto 0.0 /100WBC (0.0-0.2); Platelet Count 298 X10*3/uL (160-400); Red Blood Count 4.33 X10*6/uL (4.60-5.80); White Blood Count 6.3 X10*3/uL (4.8-10.8)
[2025-08-01 13:18] LABS: Hemoglobin A1C 141.6005 umol/L; Total Hemoglobin (HGBA1C) 3793.6340 umol/L
[2025-08-01 13:41] LABS: Alanine Aminotransferase 20 U/L (0-40); Albumin Level 4.3 g/dL (3.5-5.0); Alkaline Phosphatase 56 U/L (39-117); Anion Gap 10 (12-20); Aspartate Amino Transferase 27 U/L (5-37); Blood Urea Nitrogen 11 mg/dL (9-16); Calcium 9.3 mg/dL (8.4-10.2); Carbon Dioxide 28 mmol/L (22-29); Chloride 106 mmol/L (96-108); Cholesterol 221 mg/dL (<200); Estimated Glomerular Filt Rate > 60; HDL Cholesterol 90 mg/dL (>40); Potassium 4.7 mmol/L (3.3-5.1); Sodium 139 mmol/L (135-145); Total Protein 6.7 g/dL (6.5-8.0); Triglycerides 82 mg/dL (<150)
[2025-08-01 13:58] LABS: Folate 16.2 ng/mL (> or = 4.0); Vitamin B12 546 pg/mL (200-900)
[2025-08-01 13:59] LABS: Free T4 (Free Thyroxine) 0.98 ng/dL (0.71-1.85); Thyroid Stimulating Hormone 1.28 uIU/mL (0.32-4.0)
== END 2025-08-01 10:06 | disposition home or self-care (01) ==
LOC: HO.HMGCLDS 10:05
PROVIDERS: PCP Internal Medicine; Visit Provider Internal Medicine
DX: Z13.1 Encounter for screening for diabetes mellitus (principal); E78.00 Pure hypercholesterolemia, unspecified; I10 Essential (primary) hypertension
CPT/HCPCS: 36415; 80053; 80061; 82607; 82746; 83036; 84439; 84443; 85025

== ENCOUNTER 2025-08-08 11:44 | Emergency (ER) | payer BC, SELFPAY ==
--- NOTE | ~2025-08-08 | XR_ITS ---
EXAMINATION: XR LUMBOSACRAL SPINE CLINICAL INFORMATION: pain COMPARISON: 12/03/2015. MR lumbar 09/03/2021. TECHNIQUE: Three views of the lumbosacral spine. FINDINGS: There is a mild levoconvex scoliosis apex at L3 with a minimal rotatory component. There is a normal lumbar lordosis. There are minimal degenerative retrolistheses of L1 on L2, L2 on L3, and L4 on L5. Moderate diffuse disc degeneration is evident, most significant at L2-3. There are sclerotic endplate changes at L2-3. No fracture, compression deformity, or suspicious bone lesion. There is normal facet alignment. Hypertrophic degenerative facet changes are present spanning L3-S1. There is pseudoarticulation of the left transverse process of L5 with the left sacral ala. Soft tissues demonstrate no abnormalities. XR/XR lumbar spine 2-3V IMPRESSION: 1. No acute bony abnormalities of the lumbar spine. 2. Mild levoconvex scoliosis and moderate lumbar spondylosis. Electronically signed by: Jayce Jones MD 08/08/2025 01:01 PM EDT
--- NOTE | ~2025-08-08 | XR_ITS ---
EXAMINATION: XR HIP 1 VIEW RIGHT WITH PELVIS HISTORY: pain COMPARISON: There are no prior studies available for comparison. FINDINGS: A single AP view of the pelvis and two views of the right hip are submitted. Osseous mineralization is normal. There is no fracture or dislocation. The joint space is maintained. The soft tissues are unremarkable. XR/XR hip RT w PEL1V IMPRESSION: Unremarkable examination of the right hip. Electronically signed by: Riley Fenton MD 08/08/2025 12:58 PM EDT
[2025-08-08 11:56] VITALS: BP 178/79; PULSE 87; RESP 18; TEMP 36.5; O2SAT 100; BMI 27.8
--- NOTE | 2025-08-08 12:01 | ED.BACK ---
HPI - Back Pain/Injury General Chief Complaint: Back Pain/Injury Stated Complaint: Back injury, tingling in extremities Time Seen by Provider: 08/08/25 12:41 Source: patient and family (Daughter who is RN) Mode of arrival: ambulatory Limitations: no limitations History of Present Illness ED Provider: HPI Narrative: 55-year-old male with longstanding history of back issues, works as a mailman, presenting with back that started tingling and then he what sounded like had a panic attack, he started having tingling in his arms and legs, became diaphoretic felt like he is going to pass out, he states he has had panic attacks in the past but only few times in his life, no chest pain or shortness of breath. He injured his back last week and was placed on baclofen, steroids as well as tramadol and just returned to work. He has had no fevers or chills, no IV drug use, no numbness in the groin, no numbness or weakness in his legs, no abdominal pain, no dysuria or hematuria. Related Data Home Medications ?Medication ?Instructions ?Recorded ?Confirmed [id number] 300 mcg-K 60 1 tab PO DAILY 08/24/21 07/31/25 mcg-lycop 600 mcg-lutein 300 mcg tablet (Centrum Silver Men) Previous Rx's ?Medication ?Instructions ?Recorded cholecalciferol (vitamin D3) 50 50 mcg PO DAILY #90 tabs 05/10/22 mcg (2,000 unit) tablet blood pressure monitor (Blood #1 ea 07/13/23 Pressure Kit) epinephrine 0.3 mg/0.3 mL 0.3 mg (0.3 mL) IM Q10M PRN 03/07/25 injection, auto-injector (EpiPen anaphylaxis #2 ea 2-Vic) lisinopril 20 mg tablet 20 mg PO DAILY 90 days #90 tabs 03/31/25 bupropion HCl 150 mg tablet,12 hr 150 mg PO BID #180 tabs 07/05/25 sustained-release (Wellbutrin SR) baclofen 5 mg tablet 5 mg PO BEDTIME #14 tabs 07/31/25 diclofenac sodium 75 mg 75 mg PO BID pain 10 days #20 tabs 07/31/25 tablet,delayed release prednisone 10 mg tablet 10 mg PO DAILY 5 days #5 tabs 07/31/25 tramadol 50 mg tablet 50 mg PO BEDTIME PRN pain 5 days 07/31/25 #5 tabs lidocaine 5 % topical patch 1 patch topical DAILY #15 ea 08/08/25 oxycodone 5 mg capsule 5 mg PO Q4-6H PRN pain 5 days #20 08/08/25 caps Allergies Allergy/AdvReac Type Severity Reaction Status Date / Time hydrochlorothiazide Allergy Unknown Rash Verified 08/08/25 11:57 oxycodone (From OxyContin) Allergy Itching Verified 08/08/25 11:57 Review of Systems Constitutional: Constitutional: Reports as per [facility] Past Medical History Medical History Scalp lesion Hand numbness Radicular pain of upper extremity Epigastric pain Hemorrhoids Bleeding hemorrhoids Tubular adenoma of colon Hypertension Nicotine dependence, cigarettes, uncomplicated Bilateral hand numbness Right rib fracture Fracture of right tibia and fibula Degenerative disc disease Vitamin D deficiency Overweight (BMI 25.0-29.9) Surgical History History of cervical spinal surgery History of surgery on lower extremity History of excision of pilonidal cyst History of colonoscopy Family History Family History Mother Lung cancer History of [facility] Father Prostate cancer Sister Auto immune neutropenia Sister No problems noted. Brother Heart attack Daughter No problems noted. Maternal Uncle CAD (coronary artery disease) Social History Social History Housing: Apartment Alcohol intake: current Comment: 2-3 a day Patient Tobacco Use Status: Current everyday Tobacco user Tobacco use type: Cigarette Cigarettes Per Day: 20 Years Smoked: onset 20yo, 1ppd x 33yrs, 30pyh (3/4 pack a day) e-Cigarette/Vaping Use: Never Used Second Hand Smoke Exposure: Yes Advance Directives: Yes Advance Directives Information Provided: No Advance Directives on File: No Do you have a plan to hurt others: No Plan service: No Current occupational status: employed Cognitive needs: No Hearing needs: No Vision needs: No Physical Exam Vital Signs: Vital Signs: Last Vital Signs Temp 97.7 F 08/08/25 11:56 Pulse 80 08/08/25 14:09 Resp 13 08/08/25 14:09 BP 156/79 H 08/08/25 14:09 Pulse Ox 93 08/08/25 14:09 O2 Del Method Room Air 08/08/25 14:09 BMI result Body Mass Index 27.8 Const: Other: Gen: ?Overall well-appearing patient Neck: Supple, no LAD CV: RRR, no obvious murmurs appreciated Resp: ?No wheezing rales rhonchi no stridor moving air well Abd: ?Bowel sounds are present, no tenderness no rebound no rigidity MSK: FROM, strength 5/5 all extremities, no sensory deficits S1-L2, he has good quad recruitment bilaterally, negative straight leg raise test bilaterally, soft compartments, lumbar right-sided paraspinal tenderness, no midline tenderness no rashes no step-offs Neuro: ?Alert and oriented x3, moving upper and lower extremities symmetrically, no obvious facial asymmetry noted Course Course Course Narrative: This is an RME: Additional HPI, ROS, PE not included below will be deferred to primary provider. RME assessment and note performed by: Shanta Caruso PA-C This is a 55-year-old male who presents emergency department with concerns of severe back pain. Also reports bilateral arm and leg tingling. Fell diaphoretic, as if he was going to pass out. States that he injured his back last week. Patient tearful in triage. Tender to palpation along the right SI joint. Plan: x-ray, labs, ekg, further ER evaluation needed. Medications Administered Discontinued Medications Generic Name Dose Route Start Last Admin Trade Name Kellen PRN Reason Stop Dose Admin Ketorolac Tromethamine 15 mg 08/08/25 13:14 08/08/25 13:34 Ketorolac Tromethamine 15 Mg/Ml Vial IM 08/08/25 13:15 15 mg ONCE ONE Administration Lidocaine HCl 10 ml 08/08/25 13:14 08/08/25 13:35 Lidocaine Hcl 2 % 20 Ml Vial INFILTRATI 08/08/25 13:15 10 ml ONCE ONE Administration Morphine Sulfate 15 mg 08/08/25 13:14 08/08/25 13:35 Morphine Sulfate Immed Release 15 Mg Tablet PO 08/08/25 13:15 15 mg ONCE ONE Administration Medical Decision Making Medical Decision Making MDM Narrative: 1:18 PM 08/08/2025 (Dr. Rigoberto Funes): No risk factors for infectious etiology such as diskitis osteomyelitis spinal epidural abscess, no physical exam findings to suspect cauda equina, this is not related to either renal colic renal issues or abdominal issues I have canceled his blood work and urinalysis, obtain verbal consent for trigger point injections along his paraspinal muscles, his x-rays without any acute fractures or destructive lesions, there are some arthritic changes, I reviewed his MRI that his daughter who is a nurse showed me from 2020 he has had bulging discs even 4 years ago and this is a longstanding issue, anticipating discharge, he does need follow up with the PCP, outpatient MRI and I will start him on narcotics, he has no allergies to oxycodone he has had itching many years ago when he was child. 2:26 PM 08/08/2025 (Dr. Rigoberto Funes): Patient re-evaluated, he was able to get up the gurney without any assistance, states he still has some discomfort but much better than before, see my discharge instructions Differential Diagnosis Differential Diagnoses: The differential diagnosis associated with the presentation includes (Diskitis, osteomyelitis, spinal epidural abscess, cauda equina, musculoskeletal pain) Admission/Observation Consideration of admission/observation: Escalation of care including admission/observation considered Independent Interpretation I performed an independent interpretation of an: Plain X-Ray (Arthritic changes, no fractures, no destructive lesions) Radiology Impression Discussion of test interpretation with radiology: I have reviewed the radiologist's reading. (1. No acute bony abnormalities of the lumbar spine. 2. Mild levoconvex scoliosis and moderate lumbar spondylosis.) Prescription Management I considered prescription management with: Pain Medication Procedures Procedure Narrative Procedure Narrative: CPT 19108: ?1 or 2 muscle groups injected single or multiple trigger points Time-out: A time-out was performed to confirm the correct patient, procedure, site, and consent. Technique: The patient was placed in a [supine/prone/sitting] position. The skin overlying the trigger points was cleansed with [alcohol prep pad]. The trigger points were palpated and marked. Stabilization and Injection: The provider stabilized the muscle tissue by pinching the trigger point between their fingers. Using [21-gauge, 1.5-inch needle], the medication was injected with a fanning motion into the affected muscles. Medication: A solution of ?[ 10 mL of 1% lidocaine ] was injected. Muscles Injected: A total of [1 #] muscles were injected on the [right] side, including the: Right-sided paraspinal muscles L1-L5 Post-Procedure: Patient Response: The patient tolerated the procedure well and reported improvement in their pain. Follow-up: The injection sites were cleaned, and a bandage was applied. The patient was instructed to [apply ice for 15 minutes as needed] and advised on potential post-injection soreness. Assessment and Plan: The injection was successful, resulting in ?decreased pain and improved range of motion. Follow-up will be scheduled as needed. Discharge Plan Discharge Clinical Impression: Lumbar degenerative disc disease, Lumbar paraspinal muscle spasm Patient Disposition: Home, Self-Care Additional Instructions: Oxycodone 5 mg every 4-6 hours needed for pain, use ibuprofen 400 mg every 6 hours around the clock for the next 2 days, acetaminophen 975 mg every 6 hours for additional pain control, lidocaine or capsaicin patches use 1 and then the other feel that they both work well and capsaicin patch works very well for spasm, work note for provide it, and as discussed referral to your PCP I think you need outpatient physical therapy and MRI Capsaicin patches are [id number] Prescriptions: New oxycodone 5 mg capsule 5 mg PO Q4-6H PRN (Reason: pain) 5 Days Qty: 20 0RF Rx Instructions: Partial Fill upon patient request. lidocaine 5 % adhesive patch,medicated 1 patch topical DAILY Qty: 15 0RF Rx Instructions: leave on most painful area for up to 12 hrs No Action lisinopril 20 mg tablet 20 mg PO DAILY 90 Days Qty: 90 3RF bupropion HCl [Wellbutrin SR] 150 mg tablet sustained-release 12 hr 150 mg PO BID Qty: 180 2RF cholecalciferol (vitamin D3) 50 mcg (2,000 unit) tablet 50 mcg PO DAILY Qty: 90 3RF Centrum Silver Men 300-600-300 mcg tablet 1 tab PO DAILY (DME) blood pressure monitor [Blood Pressure Kit] Kit See Rx Instructions .ROUTE .MEDSUPPLY Qty: 1 0RF Rx Instructions: As directed prednisone 10 mg tablet 10 mg PO DAILY 5 Days Qty: 5 0RF tramadol 50 mg tablet 50 mg PO BEDTIME PRN (Reason: pain) 5 Days Qty: 5 0RF diclofenac sodium 75 mg tablet,delayed release (DR/EC) 75 mg PO BID 10 Days Qty: 20 0RF Rx Instructions: take it with food baclofen 5 mg tablet 5 mg PO BEDTIME Qty: 14 0RF epinephrine [EpiPen 2-Vic] 0.3 mg/0.3 mL auto-injector 0.3 mg IM Q10M PRN (Reason: anaphylaxis) Qty: 2 0RF Rx Instructions: for 2 doses Referrals: Mark,Ada Escobar MD [Primary Care Provider, Internal Medicine] - 2 weeks Referral Note: I believe patient needs outpatient MRI as well as physical therapy and likely referral to pain management Clinical Impression: Lumbar degenerative disc disease; Lumbar paraspinal muscle spasm Stand Alone Forms: Work/School Release Print Language: Slovak
--- NOTE | 2025-08-08 12:07 | ECG_ITS ---
Test Reason : WEAKNESS Blood Pressure : */* mmHG Vent. Rate : 76 BPM Atrial Rate : 76 BPM P-R Int : 174 ms QRS Dur : 80 ms QT Int : 366 ms P-R-T Axes : 62 17 27 degrees QTcB Int : 411 ms Sinus rhythm with Premature atrial complexes Otherwise normal ECG When compared with ECG of 18-Apr-2014 09:26, Premature atrial complexes are now Present Nonspecific T wave abnormality now evident in Anterior leads Referred By: Shanta Caruso Electronically Signed By: Tremayne Morales
[2025-08-08] MEDS: Lidocaine HCl 2 % 20 ML VIAL 10 ML INFILTRATI (13:35)
[2025-08-08] MEDS: Morphine Sulfate Immed Release 15 MG TABLET PO (13:35)
[2025-08-08 14:09] VITALS: BP 156/79; PULSE 80; RESP 13; O2SAT 93
[2025-08-08 14:50] VITALS: BP 156/79; PULSE 80; RESP 13; TEMP -17.7; TEMP 0; O2SAT 93
--- OUTSIDE RECORDS SUMMARY | 2025-08-08 17:36 | XMS_ITS | Patient Health Record ---
Author Organization [facility] Address [address] [place] [address] Care Team Providers Care Marketing Outreach Coordinator Name Role Phone Po Ada WILLS Primary Care Provider Chente Vuong Jr Unavailable [phone] Allergies Allergen (clinical drug ingredient) Drug/Non Drug [...] Problem Status W/U Status Risk Notes Problem 64702641 Rectal bleeding (K62.5) Active confirmed Problem 815160735 Personal history of colonic polyps (Z86.010) Active confirmed Problem 665162686 retirement (current) use of non-steroidal anti-inflamma tories (NSAID) (Z79.1) Active confirmed Problem History of polyp of colon (237774428) History of colon polyps (Z86.010) Active confirmed Plan Of Treatment Future Test Test Name Order Date COLONOSCOPY 04/07/2016 COLONOSCOPY 10/29/2021 Insurance Providers Payer Name Payer Address Payer Phone Subscriber Number Group Number Insured Name Patient Relationship to Insured Coverage Start Date Coverage End Date [facility] [address] [place], [place] [id number] LAKSHMI BURLESON Self - patient is the insured Medical (General) History Medical History History ICD Code degenerative joint disease hypertension hx of broken leg Surgical History Surgery Date(Month/Year) pilonidal cyst excision Neck fusion tibula/fibula fractures ganglion cyst
== END 2025-08-08 14:52 | disposition home or self-care (01) ==
PROVIDERS: Emergency Provider Emergency Medicine; PCP Internal Medicine
DX: M51.369 Other intervertebral disc degeneration, lumbar region without mention of lumbar back pain or lower extremity pain (principal); R10.2 Pelvic and perineal pain; R94.31 Abnormal electrocardiogram [ECG] [EKG]; M54.50 Low back pain, unspecified; M79.18 Myalgia, other site; F17.210 Nicotine dependence, cigarettes, uncomplicated; Z79.899 Other long term (current) drug therapy
CPT/HCPCS: 20552; 72100; 73502; 93005; 96372; 99284; J1885; J2003

== ENCOUNTER → 2025-08-08 12:05 | Outpatient (BNV) | payer BC, SELFPAY | PROVIDERS: Emergency Provider Emergency Medicine; PCP Internal Medicine; Visit Provider Radiology Diagnostic Radiology | DX: M25.551 Pain in right hip (principal); M47.816 Spondylosis without myelopathy or radiculopathy, lumbar region | CPT/HCPCS: 72100; 73502 ==

== ENCOUNTER → 2025-08-08 12:07 | Outpatient (BNV) | payer BC, SELFPAY | PROVIDERS: Emergency Provider Emergency Medicine; PCP Internal Medicine; Visit Provider Internal Medicine Cardiovascular Disease | DX: I49.1 Atrial premature depolarization (principal) | CPT/HCPCS: 93010 ==

== ENCOUNTER 2025-08-10 12:51 | Emergency (ER) | payer BC, SELFPAY ==
[2025-08-10 13:03] VITALS: BP 175/83; PULSE 78; RESP 18; TEMP 36.2; O2SAT 100; BMI 29.5
--- NOTE | 2025-08-10 13:04 | ED.GENADULT ---
HPI - General Adult General Chief complaint: Anxiety Stated complaint: facial, arm numbness dizzy rapid heart beat Time Seen by Provider: 08/10/25 15:39 History of Present Illness ED Provider: Teofilo GUADARRAMA narrative: The patient is a 55-year-old male who has been experiencing episodes of bilateral numbness and tingling in his arms in his legs associated with the episodes of back pain for the last several weeks. It is possible that he has had similar symptoms over a longer period of time as well. Apparently the patient had an exacerbation of back pain a couple of weeks ago. This began while he was using the toilet. He went to an urgent care center and was prescribed prednisone among other medications. Two days ago he came to the emergency room after an episode of numbness and tingling in his arms in his legs and a sense of diaphoresis and a sense of near-syncope. He was also complaining of back pain. This occurred while he was at work. He works for the [employer] He was seen in the emergency department and was felt to be neurologically intact. He was given some trigger point injections and was discharged with a prescription for oxycodone. The patient apparently had another episode of numbness and tingling his legs in his arms today. He also had a sensation of tingling around his mouth. He felt that his heart was racing. He called his daughter and she told him to recurrent to the emergency room. No bowel or bladder control problems. No saddle anesthesia. Related Data Home Medications ?Medication ?Instructions ?Recorded ?Confirmed cxupzhoh-tq-oyjsk 300 mcg-K 60 1 tab PO DAILY 08/24/21 07/31/25 mcg-lycop 600 mcg-lutein 300 mcg tablet (Centrum Silver Men) Previous Rx's ?Medication ?Instructions ?Recorded cholecalciferol (vitamin D3) 50 50 mcg PO DAILY #90 tabs 05/10/22 mcg (2,000 unit) tablet blood pressure monitor (Blood #1 ea 07/13/23 Pressure Kit) epinephrine 0.3 mg/0.3 mL 0.3 mg (0.3 mL) IM Q10M PRN 03/07/25 injection, auto-injector (EpiPen anaphylaxis #2 ea 2-Vic) lisinopril 20 mg tablet 20 mg PO DAILY 90 days #90 tabs 03/31/25 bupropion HCl 150 mg tablet,12 hr 150 mg PO BID #180 tabs 07/05/25 sustained-release (Wellbutrin SR) baclofen 5 mg tablet 5 mg PO BEDTIME #14 tabs 07/31/25 diclofenac sodium 75 mg 75 mg PO BID pain 10 days #20 tabs 07/31/25 tablet,delayed release prednisone 10 mg tablet 10 mg PO DAILY 5 days #5 tabs 07/31/25 tramadol 50 mg tablet 50 mg PO BEDTIME PRN pain 5 days 07/31/25 #5 tabs lidocaine 5 % topical patch 1 patch topical DAILY #15 ea 08/08/25 oxycodone 5 mg capsule 5 mg PO Q4-6H PRN pain 5 days #20 08/08/25 caps diazepam 5 mg tablet (Valium) 5 mg PO BID PRN anxiety #14 tabs 08/10/25 Allergies Allergy/AdvReac Type Severity Reaction Status Date / Time hydrochlorothiazide Allergy Unknown Rash Verified 08/10/25 13:06 oxycodone (From OxyContin) Allergy Itching Verified 08/10/25 13:06 Review of Systems Review of Systems: Yes all other systems are reviewed and are negative [facility] Past Medical History Medical History Scalp lesion Hand numbness Radicular pain of upper extremity Epigastric pain Hemorrhoids Bleeding hemorrhoids Tubular adenoma of colon Hypertension Nicotine dependence, cigarettes, uncomplicated Bilateral hand numbness Right rib fracture Fracture of right tibia and fibula Degenerative disc disease Vitamin D deficiency Overweight (BMI 25.0-29.9) Surgical History History of cervical spinal surgery History of surgery on lower extremity History of excision of pilonidal cyst History of colonoscopy Family History Family History Mother Lung cancer History of SIADH Father Prostate cancer Sister Auto immune neutropenia Sister No problems noted. Brother Heart attack Daughter No problems noted. Maternal Uncle CAD (coronary artery disease) Social History Social History Housing: Apartment Alcohol intake: current Alcohol intake frequency: holidays/special occasions only Comment: 2-3 a day Patient Tobacco Use Status: Current everyday Tobacco user Tobacco use type: Cigarette Cigarettes Per Day: 20 Years Smoked: onset 20yo, 1ppd x 33yrs, 30pyh (3/4 pack a day) Smoked in Last 30 Days: No e-Cigarette/Vaping Use: Never Used Second Hand Smoke Exposure: Yes Use of substances other than those prescribed or required for medical reasons: Yes Substance Use Type: Marijuana Advance Directives: Yes Advance Directives Information Provided: No Advance Directives on File: No service: No Current occupational status: employed Cognitive needs: No Hearing needs: No Vision needs: No Physical Exam ED Vital Signs: Vital Signs - 24 hr 08/10/25 13:03 08/10/25 14:30 08/10/25 16:38 Temperature 97.2 F 97.2 F 98.5 F Pulse Rate 78 78 61 Respiratory Rate 18 18 14 Blood Pressure 175/83 H 175/83 H 147/72 H Pulse Oximetry 100 100 96 Oxygen Delivery Method Room Air Room Air Room Air 08/10/25 17:41 08/10/25 17:42 Temperature 98.5 F Pulse Rate 61 70 Respiratory Rate 14 18 Blood Pressure 147/72 H 139/62 Pulse Oximetry 96 94 Oxygen Delivery Method Room Air Room Air BMI result Body Mass Index 29.5 Const Other: The patient is a 55-year-old male who was awake and alert. He does not appear in acute distress. He was pleasant and cooperative although he had an anxious affect. HENMT Other: The face is symmetrical. ?Mucous membranes moist. Eyes Other: Pupils are round equal, conjunctivae are clear, extraocular movements intact General: appearance normal, both eyes and all related structures Visual Gann: normal visual gann by confrontation Neck Neck: Yes normal visual inspection and Yes full ROM Resp Effort & Inspection: normal respiratory effort Auscultation: clear to auscultation bilaterally Cardio Rate: regular rate Rhythm: regular rhythm Heart sounds: S1 normal heart sound present and S2 normal heart sound present GI Other: Abdomen is soft and nontender Skin Other: The skin is dry and unremarkable Neuro Other: The patient is awake and alert with a normal mental status. Pupils are round and equal and reactive, extraocular movements are intact, visual gann are intact to confrontation. Speech is clear and normal. The face is symmetrical. Tongue is midline. He has 5/5 strength in all extremities. There was no pronator drift. He reports intact sensation in all 4 extremities. He has 2+ reflexes at the knees, 1+ reflexes at the ankles, toes go down bilaterally. He has 1+ reflexes at the biceps and 1+ reflexes at the triceps. He has a steady normal gait. He can walk on tiptoes without difficulty. He seems entirely neurologically intact. Extrem Other: There is no calf swelling or tenderness. No asymmetry. No peripheral edema. Course Course Course Narrative: This is a rapid medical exam performed by Jneni Andrews NP: Additional HPI, ROS, PE not included below will be deferred to primary provider. Patient is a 55-year-old male presenting with complaint of tingling to bilateral arms and legs. Laid on the couch and became acutely anxious, tingling to all extremities, perioral area, head tension. Seen here recently for same, dx with panic attack. Stating something isn't right. NIHSS 0. Plan: EKG, labs Medications Administered Discontinued Medications Generic Name Dose Route Start Last Admin Trade Name Freq PRN Reason Stop Dose Admin Diazepam 5 mg 08/10/25 16:12 08/10/25 16:31 Diazepam 5 Mg Tablet PO 08/10/25 16:13 5 mg ONCE ONE Administration Medical Decision Making Medical Decision Making [facility] Narrative: The patient is a 55-year-old male with a history of low back pain and hypertension who has been having exacerbations of his low back pain recently. He has missed work recently because of the low back pain and he finds this very stressful. He has had had least 2 episodes of a sensation of numbness and tingling in his arms in his legs and also some numbness and tingling around the mouth. He had a sense that he might pass out as well. He was here 2 days ago with similar symptoms. He was prescribed oxycodone for his back pain. He was referred back to his primary care doctor. Today he had another episode of numbness and tingling in his extremities and around his mouth. His daughter told him to come to the emergency room. The daughter was on the phone during my interview. The daughter is very concerned that his symptoms might be related to chronic back problems and disc problems in his spine. I did not appreciate any sense of any acute neurological or neurosurgical process related to back pain. I felt that his description of his episodes was much more consistent with episodes of anxiety and hyperventilation possibly triggered by the stress of his back pain and the sense of disability his back pain is giving him. He has been missing work because of his back pain. The patient is physical exam is very reassuring from the point of view of any acute neurosurgical process with his back or spine generally. He has a unremarkable labs and an unremarkable EKG. He has a normal D-dimer. The patient was given a dose of diazepam. He felt calmer after the diazepam. I explained to the daughter over the phone that I felt this was not a neurosurgical emergency. I think the patient may be discharged to follow up with his regular doctor. With regard to the problems he has been having with his back he should also follow up with [facility] where he has been seen in the past. He was given a prescription for diazepam to use sparingly. Lab Data 08/10/25 13:27 08/10/25 13: Labs: Lab Results 08/10/25 08/10/25 Range/Units 13: 16:37 WBC 9.8 (4.8-10.8) X10*3/uL RBC 4.16 L (4.60-5.80) X10*6/uL Hgb 14.0 (14.0-18.0) g/dl Hct 39.4 L (42.0-52.0) % MCV 94.7 (80.0-98.0) fL MCH 33.7 H (27.0-33.0) pg MCHC 35.5 (31.0-36.0) g/dl RDW 11.5 (11.0-16.0) % Plt Count 294 (160-400) X10*3/uL MPV 8.2 L (9.4-12.4) fL Immature Gran % (Auto) 0.3 (0.0-0.4) % Neut % (Auto) 68.9 (45-73) % Lymph % (Auto) 24.1 (20-40) % [place] % (Auto) 5.2 (2-11) % Eos % (Auto) 1.2 (0-4) % Baso % (Auto) 0.3 (0-2) % Lymph # (Auto) 2.4 (1.2-4.9) X10*3/uL [place] # (Auto) 0.5 (0.1-1.2) X10*3/uL Eos # (Auto) 0.1 (0.0-0.4) X10*3/uL Baso # (Auto) 0.0 (0.0-0.2) X10*3/uL Abs Immat Gran (auto) 0.03 (0.00-0.03) X10*3/uL Absolute Neuts (auto) 6.8 (2.0-8.3) x10*3/uL Absolute Nucleated RBC 0.000 (0.0-0.012) X10*3/uL Nucleated RBC % (auto) 0.0 (0.0-0.2) /100WBC D-Dimer High Sensitivty < 150 NG/ML Sodium 136 (135-145) mmol/L Potassium 4.2 (3.3-5.1) mmol/L Chloride 103 (96-108) mmol/L Carbon Dioxide 25 (22-29) mmol/L Anion Gap 12 (12-20) BUN 13 (9-16) mg/dL Creatinine 0.98 (0.5-1.4) mg/dL Estim Creat Clear Calc 92.5 Estimated GFR > 60 Random Glucose 94 (60-115) mg/dL Calcium 9.1 (8.4-10.2) mg/dL Magnesium 2.1 (1.6-2.6) mg/dL Total Bilirubin 0.9 (0.0-1.0) mg/dL AST 22 (5-37) U/L ALT 20 (0-40) U/L Alkaline Phosphatase 60 (39-117) U/L Total Protein 6.6 (6.5-8.0) g/dL Albumin 4.3 (3.5-5.0) g/dL TSH 2.28 (0.32-4.0) uIU/mL COVID-19 (AYDEN) Negative (Negative) COVID-19 Clin Com See Note Influenza Type A (JAMSHID) Negative (Negative) Influenza Type B (JAMSHID) Negative (Negative) Influenza A & B Note See Note Discharge Plan Discharge Clinical Impression: Low back pain, Hyperventilation Patient Disposition: Home, Self-Care Instructions: Hyperventilation (ED), Acute Low Back Pain (ED) Additional Instructions: Your testing in the emergency room today is reassuring. I think your physical exam shows that you are neurologically functioning appropriately. I do not see any worrisome signs for a neurological problem with regard to your back or your neck. Additionally you have tested well from the point of view of any kind of problem with a blood clot in your system. I think that you are probably having a severe anxiety reaction when you experience the severe back pain you has been having. This is not uncommon. I have sent a prescription for a medication called diazepam to your pharmacy. This is a medication which I hope will reduce any symptoms of anxiety if you feel acutely anxious or any sense of hyperventilation which is usually accompanied by a sense of numbness and tingling in the extremities and around the mouth. Please contact your regular doctor's office on Tuesday to follow through with plans for follow up with your regular doctor. I would also follow up with [facility] to discuss your back pain. Return to the emergency room if significantly worse. Prescriptions: New diazepam [Valium] 5 mg tablet 5 mg PO BID PRN (Reason: anxiety) Qty: 14 0RF No Action lisinopril 20 mg tablet 20 mg PO DAILY 90 Days Qty: 90 3RF bupropion HCl [Wellbutrin SR] 150 mg tablet sustained-release 12 hr 150 mg PO BID Qty: 180 2RF oxycodone 5 mg capsule 5 mg PO Q4-6H PRN (Reason: pain) 5 Days Qty: 20 0RF Rx Instructions: Partial Fill upon patient request. lidocaine 5 % adhesive patch,medicated 1 patch topical DAILY Qty: 15 0RF Rx Instructions: leave on most painful area for up to 12 hrs cholecalciferol (vitamin D3) 50 mcg (2,000 unit) tablet 50 mcg PO DAILY Qty: 90 3RF Centrum Silver Men 300-600-300 mcg tablet 1 tab PO DAILY (DME) blood pressure monitor [Blood Pressure Kit] Kit See Rx Instructions .ROUTE .MEDSUPPLY Qty: 1 0RF Rx Instructions: As directed prednisone 10 mg tablet 10 mg PO DAILY 5 Days Qty: 5 0RF tramadol 50 mg tablet 50 mg PO BEDTIME PRN (Reason: pain) 5 Days Qty: 5 0RF diclofenac sodium 75 mg tablet,delayed release (DR/EC) 75 mg PO BID 10 Days Qty: 20 0RF Rx Instructions: take it with food baclofen 5 mg tablet 5 mg PO BEDTIME Qty: 14 0RF epinephrine [EpiPen 2-Vic] 0.3 mg/0.3 mL auto-injector 0.3 mg IM Q10M PRN (Reason: anaphylaxis) Qty: 2 0RF Rx Instructions: for 2 doses Referrals: [facility] [Outside] Po,Ada Escobar MD [Primary Care Provider, Internal Medicine] Interventions: ED Discharge Assessment Last Done: 08/10/25 17:41 Discharge Date/Time: 08/10/25 17:42 Print Language: Kiswahili
--- NOTE | 2025-08-10 13:06 | ECG_ITS ---
Test Reason : lightheaded Blood Pressure : */* mmHG Vent. Rate : 74 BPM Atrial Rate : 74 BPM P-R Int : 160 ms QRS Dur : 76 ms QT Int : 372 ms P-R-T Axes : 45 -1 15 degrees QTcB Int : 412 ms Normal sinus rhythm with sinus arrhythmia Normal ECG When compared with ECG of 08-Aug-2025 12:27, Premature atrial complexes are no longer Present Referred By: Janay Andrews Electronically Signed By: Tremayne Morales
[2025-08-10 13:32] LABS: MANUAL DIFF FLAG NO
[2025-08-10 13:33] LABS: Hematocrit 39.4 % (42.0-52.0); Hemoglobin 14.0 g/dl (14.0-18.0); Imm Gran Abs Auto 0.03 X10*3/uL (0.00-0.03); Imm Gran Pct Auto 0.3 % (0.0-0.4); Lymphocytes Absolute Auto 2.4 X10*3/uL (1.2-4.9); Mean Corpuscular HGB Conc 35.5 g/dl (31.0-36.0); Mean Corpuscular Hemoglobin 33.7 pg (27.0-33.0); Mean Corpuscular Volume 94.7 fL (80.0-98.0); NRBC Abs Auto 0.000 X10*3/uL (0.0-0.012); NRBC Pct Auto 0.0 /100WBC (0.0-0.2); Platelet Count 294 X10*3/uL (160-400); Red Blood Count 4.16 X10*6/uL (4.60-5.80); White Blood Count 9.8 X10*3/uL (4.8-10.8)
[2025-08-10 13:46] LABS: COVID-19 Test Negative (Negative); IDNOW Serial# 55D5AD1C
[2025-08-10 13:49] LABS: IDNOW Serial# 58CA691E; Influenza B2 Negative (Negative)
[2025-08-10 13:58] LABS: Alanine Aminotransferase 20 U/L (0-40); Albumin Level 4.3 g/dL (3.5-5.0); Alkaline Phosphatase 60 U/L (39-117); Anion Gap 12 (12-20); Aspartate Amino Transferase 22 U/L (5-37); Blood Urea Nitrogen 13 mg/dL (9-16); Calcium 9.1 mg/dL (8.4-10.2); Carbon Dioxide 25 mmol/L (22-29); Chloride 103 mmol/L (96-108); Creatinine Clr Calc Pharmacy 92.5; Estimated Glomerular Filt Rate > 60; Magnesium 2.1 mg/dL (1.6-2.6); Potassium 4.2 mmol/L (3.3-5.1); Sodium 136 mmol/L (135-145); Total Protein 6.6 g/dL (6.5-8.0)
[2025-08-10 14:30] VITALS: BP 175/83; PULSE 78; RESP 18; TEMP 36.2; O2SAT 100
--- OUTSIDE RECORDS SUMMARY | 2025-08-10 14:32 | XMS_ITS | Clinical Summary ---
Author Organization [facility] Address [id number] [place] [id number] Care Team Providers Care Triage Technician Name Role Phone Ada Flores MD Primary Care Provider [phone] Social History Tobacco Use Types Packs/Day Years [...] age to complete this topic Care Teams Triage Technician Relationship Specialty Start Date End Date Ada Flores MD [address] [place] [address] [address] [facility] [place] [address] PCP - General Internal Medicine 08/29/19
--- OUTSIDE RECORDS SUMMARY | 2025-08-10 14:32 | XMS_ITS | Patient Health Record ---
Author Organization [facility] Address [address] [place] [address] Care Team Providers Care Senior Care Manager Name Role Phone Po Ada WILLS Primary [...] Problem Status W/U Status Risk Notes Problem [id number] Rectal bleeding (K62.5) Active confirmed Problem 007213832 Personal history of colonic polyps (Z86.010) Active confirmed Problem [id number] [facility] (current) use of non-steroidal anti-inflamma tories (NSAID) (Z79.1) Active confirmed Problem History of polyp of colon (140508476) History of colon polyps (Z86.010) Active confirmed Plan Of Treatment Future Test Test Name Order Date COLONOSCOPY 04/07/2016 COLONOSCOPY 10/29/2021 Insurance Providers Payer Name Payer Address Payer Phone Subscriber Number Group Number Insured Name Patient Relationship to Insured Coverage Start Date Coverage End Date [facility] [address] [place], [place] [id number] BURLESON Self - patient is the insured Medical (General) History Medical History History ICD Code degenerative joint disease hypertension hx of broken leg Surgical History Surgery Date(Month/Year) pilonidal cyst excision Neck fusion tibula/fibula fractures ganglion cyst
--- NOTE | 2025-08-10 14:35 | PC.NURSE ---
Patient presents to ED c/o numbness and tingling upper and lower extremities Patient reports being at a football game today and extremities went numb and heart began to race Patient reports having slight chest pain and dizziness Denies snycope, injury, n/v, and SOB Patient put daughter (Aleah) on phone to explain advocate for imaging tests for her father Reassured Aleah we are going to treat her father Provider in to see patient Plan of care on going
[2025-08-10 16:38] VITALS: BP 147/72; PULSE 61; RESP 14; TEMP 36.9; O2SAT 96
[2025-08-10 16:50] LABS: D Dimer High Sensitivity < 150 NG/ML
[2025-08-10 17:41] VITALS: BP 147/72; PULSE 61; RESP 14; TEMP 36.9; O2SAT 96
[2025-08-10 17:42] VITALS: BP 139/62; PULSE 70; RESP 18; O2SAT 94
== END 2025-08-10 17:42 | disposition home or self-care (01) ==
PROVIDERS: Registered Nurse Emergency; Emergency Provider Emergency Medicine; PCP Internal Medicine
DX: M54.50 Low back pain, unspecified (principal); R20.0 Anesthesia of skin; R06.4 Hyperventilation; R42 Dizziness and giddiness; F41.9 Anxiety disorder, unspecified; I49.8 Other specified cardiac arrhythmias; Z11.52 Encounter for screening for COVID-19; Z79.899 Other long term (current) drug therapy; F17.210 Nicotine dependence, cigarettes, uncomplicated
CPT/HCPCS: 36415; 80053; 83735; 84443; 85025; 85379; 87502; 87635; 93005; 99283; 99285

== ENCOUNTER → 2025-08-10 13:06 | Outpatient (BNV) | payer BC, SELFPAY | PROVIDERS: Emergency Provider Emergency Medicine; PCP Internal Medicine; Visit Provider Internal Medicine Cardiovascular Disease | DX: R42 Dizziness and giddiness (principal) | CPT/HCPCS: 93010 ==

== ENCOUNTER 2025-08-15 15:34 | Outpatient (AMB) | payer BC, SELFPAY ==
[2025-08-15 15:39] VITALS: BP 148/88; PULSE 99; TEMP 36.4; O2SAT 98; BMI 27.6
--- NOTE | 2025-08-15 15:39 | A.OFFPC_ITS ---
Vital Signs 08/15/25 15:39 Height 5 ft 9 in Weight 187 lb 4 oz BMI 27.6 BP 148/88 H Blood Pressure Location Lt brachial Position Sitting Pulse 99 Pulse Source Pulse Oximeter Temp 97.5 F Temp Source Temporal Artery Scan Pulse Oximetry (%) 98 Oxygen Delivery Method Room Air Int[place] [facility] [place] Accompanied by: Daughter Allergies hydrochlorothiazide Allergy (Unknown, Verified 08/15/25 15:43) Rash Medication List - Last Reconciled 08/15/25 by Ada Flores MD blood pressure monitor (Blood Pressure Kit) As directed bupropion HCl SR (Wellbutrin SR) 150 mg PO BID cholecalciferol (vitamin D3) 50 mcg PO DAILY diazepam (Valium) 5 mg PO BID PRN epinephrine (EpiPen 2-Vic) 0.3 mg (0.3 mL) IM Q10M PRN lidocaine 5% 1 patch topical DAILY lisinopril 20 mg PO DAILY 90 days [id number] mcg (Centrum Silver Men) 1 tab PO DAILY oxycodone 5 mg PO Q4-6H PRN 5 days Tobacco use date assessed: 08/15/25 Dental Screening Dental Screen Date: 08/15/25 Did you have a dental visit in the last 12 months?: Yes Did you have a dental problem in the last 6 months where you did not have access to dental care?: No Was dental information given to patient?: Patient has dentist [facility] Medical History Scalp lesion Hand numbness Radicular pain of upper extremity Epigastric pain Hemorrhoids Bleeding hemorrhoids Tubular adenoma of colon Hypertension Nicotine dependence, cigarettes, uncomplicated Bilateral hand numbness Right rib fracture Fracture of right tibia and fibula Degenerative disc disease Vitamin D deficiency Overweight (BMI 25.0-29.9) Surgical History History of cervical spinal surgery History of surgery on lower extremity History of excision of pilonidal cyst History of colonoscopy Family History Mother Lung cancer History of SIADH Father Prostate cancer Sister Auto immune neutropenia Sister No problems noted. Brother Heart attack Daughter No problems noted. Maternal Uncle CAD (coronary artery disease) Social History Housing: Apartment Alcohol intake: current Alcohol intake frequency: holidays/special occasions only Comment: 2-3 a day Patient Tobacco Use Status: Current everyday Tobacco user Tobacco use type: Cigarette Cigarettes Per Day: 15 Years Smoked: onset 20yo, 1ppd x 33yrs, 30pyh (3/4 pack a day) e-Cigarette/Vaping Use: Never Used Second Hand Smoke Exposure: Yes Substance Use Type: Marijuana service: No Current occupational status: employed Cognitive needs: No Hearing needs: No Vision needs: No Questionnaire PHQ-9 Over the last 2 weeks, how often have you been bothered by any of the following problems? 1. Little interest or pleasure in doing things: several days 2. Feeling down, depressed, or hopeless: several days 3. Trouble falling or staying asleep, or sleeping too much: not at all 4. Feeling tired or having little energy: not at all 5. Poor appetite or overeating: several days 6. Feeling bad about yourself - or that you are a failure or have let yourself or your family down: not at all 7. Trouble concentrating on things, such as reading the newspaper or watching television: not at all 8. Moving or speaking so slowly that other people could have noticed. Or the opposite - being so fidgety or restless that you have been moving around a lot more than usual: not at all 9. Thoughts that you would be better off or of hurting yourself in some way: not at all Total score: 3 Source: Developed by Drs. Riley Fair, Miracle Ruiz, Bear Donato and colleagues, with an educational mani from [employer]. Thrive Questionnaire Date Thrive assessed: 08/14/25 I am a: Patient What is your living situation today?: I have a steady place to live Within the past 12 months, did the food you bought not last and you didn't have the money to get more?: Never true Within the past 12 months, did you worry whether your food would run out before you got money to buy more?: Never true Do you have trouble paying for medicines?: No Do you have trouble getting transportation to medical appointments?: No Do you have trouble paying your heating and electricity bill?: No Do you have trouble taking care of your child, family member or friend?: No Do you have trouble with day-to-day activities such as bathing, preparing meals, shopping, managing finances, etc.?: Yes Are you currently unemployed and looking for a job?: No Are you interested in more education?: No Please select the resources that you would like help with: None Currently or been in a relationship where the following occur: No concerns repo rted THRIVE Score: 0 AUDIT C Alcohol Use Questionnaire (AUDIT-C) 1. How often do you have a drink containing alcohol?: 2-3 times a week 2. How many drinks containing alcohol do you have on a typical day when you are drinking?: 3 or 4 3. How often do you have six or more drinks on one occasion?: Never Total Score: 4 SHALONDA-7 AMB Questionnaire SHALONDA-7 Date SHALONDA - 7 assessed: 03/07/25 Feeling nervous, anxious, or on edge: 2 = More than half the days Not being able to stop or control worryin = Several days Worrying too much about different things: 1 = Several days Trouble relaxin = Several days Being so restless that it is hard to sit still: 1 = Several days Becoming easily annoyed or irritable: 1 = Several days Feeling afraid as if something awful might happen: 1 = Several days Total SHALONDA-7 score (0-4 normal; 5-9 mild; 10-14 moderate; 15-21 severe): 8 Source: Developed by Drs. Riley Fair, Miracle Ruiz, Bear Donato and colleagues, with an educational mani from [employer]. Physical exam (Primary Care) Vital Signs: Last Vital Signs Temp 97.5 F 08/15/25 15:39 Pulse 99 08/15/25 15:39 BP 148/88 H 08/15/25 15:39 Pulse Ox 98 08/15/25 15:39 Oxygen Delivery Method Room Air 08/15/25 15:39 BMI result Body Mass Index 27.6 Tobacco/Smoking Status: Tobacco use Status Tobacco use date assessed 08/15/25 08/15/25 15:47 Patient Tobacco Use Status Current everyday Tobacco 08/15/25 15:41 Tobacco use type Cigarette 08/15/25 15:41 e-Cigarette/Vaping Use Never Used 08/15/25 15:41 PHQ-9: PHQ-9 Score PHQ-9: Total score 3 08/15/25 15:41 Thrive Assessment: Date of Thrive Assessment Date Thrive assessed 08/14/25 08/15/25 15:41 Currently or been in a relationship where the following occur: No concerns reported Const General: alert; No acute distress Eyes Conjunctivae: conjunctivae normal Resp Auscultation: clear to auscultation bilaterally Cardio Rate: regular rate Rhythm: regular rhythm GI Inspection: Yes normal to inspection Back/Spine/Pelvis Other: Patient has tenderness in the lower lumbar area on palpation as well as on the right sacroiliac joint leg raising normal pulses in the lower extremities bilateral equal pulses on both hands are equal. Patient does complain about numbness of fingers in the hands bilaterally . Presently sensory normal Extrem General: Yes normal to inspection and No edema Coding Level of Care Code Est Pt Level 4 (58754) Complex EM visit Add On G2211 Diagnoses Primary hypertension I10 Hypertension type: primary hypertension Impaired fasting blood sugar R73.01 Degeneration of intervertebral disc of lumbar region with discogenic back pain M51.360 Disc-related pain type: discogenic back pain only Nicotine dependence, cigarettes, uncomplicated F17.210 Confusion R41.0 Lumbar radiculopathy M54.16 Assessment & Plan Assessment & Plan (1) Hypertension: Code(s): I10 - Essential (primary) hypertension Category: Medical Qualifiers: Hypertension type: primary hypertension Qualified Code(s): I10 - Essential (primary) hypertension Plan: Continue with blood pressure medication. Decrease salt intake and exercise on lisinopril 20 mg once a day (2) Impaired fasting blood sugar: Code(s): R73.01 - Impaired fasting glucose Category: Medical Plan: Decrease the amount of carbohydrate intake, pasta, bread, rice and potatoes are all sugar and that is aside from all the sweet stuff, remember that fruits are good but they are Sweet also. (3) Lumbar degenerative disc disease: Code(s): M51.36 - Other intervertebral disc degeneration, lumbar region Category: Medical Qualifiers: Disc-related pain type: discogenic back pain only Qualified Code(s): M51.360 - Other intervertebral disc degeneration, lumbar region with discogenic back pain only Plan: Continue to be active, concerns about the events that it happened where numbness on bilateral lower extremities occured. Patient has a history of the lumbar di sc degeneration and would like to request for the MRI for follow-up on this. (4) Nicotine dependence, cigarettes, uncomplicated: Comment: (current smoker - onset 20yo, 1ppd x 34yrs, 30pyh, + fam hx lung CA mom) 08/03/2024 lung cancer screening program July 2024 last CAT scan Code(s): F17.210 - Nicotine dependence, cigarettes, uncomplicated Category: Medical Plan: Patient has a scheduled cat scan next month. For the lung cancer screening (5) Confusion: Code(s): R41.0 - Disorientation, unspecified Category: Medical Plan: Will order for the CAT scan of the head as patient has had upper and lower extremity symptoms. (6) Lumbar radiculopathy: Code(s): M54.16 - Radiculopathy, lumbar region Category: Medical Plan History of Present Illness The patient is a 55-year-old male presenting with back pain and numbness in the extremities. He has a history of degenerative disc disease and generalized anx iety disorder, with recent symptoms of bilateral numbness and tingling in his arms and legs associated with back pain. These symptoms led to an emergency room visit in July 2025. The patient was treated with prednisone, oxycodone, and trigger point injections. He also reported diaphoresis and near syncope, which were attributed to anxiety. Pain management includes lidocaine patches and a TENS machine. The patient has impaired glucose tolerance and hypertension, managed with lisinopril 20 mg daily. He is enrolled in a lung cancer screening program with a scheduled CAT scan in August 2025, and his last colonoscopy was in September 2022. Recent blood work on August 10 showed normal blood count, electrolytes, renal function, blood sugar, and liver function. Cholesterol levels were LDL 115 mg/dL and triglycerides 82 mg/dL. A lumbar spine x-ray on August 08 revealed mild scoliosis and moderate lumbar spondylosis with disc degeneration at L2-L3. Health Maintenance - Lung cancer screening program participation with scheduled CAT scan in August 2025 - Colonoscopy last performed in September 2022 - Recent blood work on August 10 with normal results Social History - Employment: Patient reports difficulty performing job duties due to back pain and numbness, requiring assistance from coworkers. - Substance Use: Smoker, participating in lung cancer screening program. Review of Systems - Neurological: Reports bilateral numbness and tingling in arms and legs, occasional headaches, and tingling in fingers. - Cardiovascular: Reports diaphoresis and near syncope. - Musculoskeletal: Reports back pain, hip pain, and neck soreness. - General: Denies fever, sore throat, or bowel movement issues. Physical Exam - Musculoskeletal: Tenderness in the sacroiliac joint area upon palpation. - Neurological: Pulses are good, no numbness in feet during examination. Results - Labs: Normal blood count, electrolytes, renal function, blood sugar, and liver function as of August 10. - Imaging: Lumbar spine x-ray on August 08 showed mild scoliosis and moderate lumbar spondylosis with disc degeneration at L2-L3. Plan Patient was informed and verbally consented to the use of an ambient scribe for clinic note documentation during this visit. 1. Generalized Anxiety Disorder The patient is experiencing anxiety symptoms, including diaphoresis and near syncope, managed with Valium as needed. Continued use of Wellbutrin and Valium is recommended, with emphasis on monitoring for side effects and adjusting dosage as necessary. 2. Degenerative Disc Disease The patient reports back pain and numbness in the extremities, managed with prednisone, oxycodone, and trigger point injections. A lumbar spine x-ray showed mild scoliosis and moderate lumbar spondylosis with disc degeneration at L2-L3. An MRI of the lumbar spine is planned to assess the current status and guide further management. 3. Impaired Glucose Tolerance The patient has impaired glucose tolerance, with recent blood work showing normal blood sugar levels. Continued monitoring of blood glucose levels is advised, along with lifestyle modifications to prevent progression to diabetes. 4. Hypertension The patient's hypertension is managed with lisinopril 20 mg daily. Regular monitoring of blood pressure is recommended to ensure effective control. 5. Lung Cancer Screening The patient is enrolled in a lung cancer screening program, with a CAT scan scheduled for August 2025. Continued participation in the screening program is advised to monitor for any potential developments. Discussion Notes During the visit, we discussed the management of the patient's anxiety with Valium and Wellbutrin, emphasizing the importance of monitoring for side effects and adjusting the dosage as needed. We also reviewed the patient's back pain management, including the use of prednisone, oxycodone, and trigger point injections, and the plan to obtain an MRI for further evaluation. The patient is advised to continue with the lung cancer screening program and to monitor blood glucose levels to prevent progression to diabetes. Patient Instructions - Continue taking Wellbutrin and Valium as prescribed, monitor for side effects. - Use lidocaine patches and TENS machine for pain management. - Attend scheduled CAT scan for lung cancer screening in August 2025. - Monitor blood glucose levels regularly. - Follow up with primary care provider for MRI results and further management. Orders: Orders MR lumbar spine wo con Today M54.16 - Radiculopathy, lumbar region CT head/brain wo IV con Today R41.0 - Disorientation, unspecified Medications: Refilled lidocaine 5% leave on most painful area for up to 12 hrs 1 patch topical DAILY 30 ea 0RF
--- OUTSIDE RECORDS SUMMARY | 2025-08-15 16:47 | XMS_ITS | Clinical Summary ---
Author Organization [facility] ity Address [address] [place] [id number] Care Team Providers Care Chief Dispatcher Name Role Phone Ada Flores MD Primary Care Provider [phone] Social History Tobacco Use Types Packs/Day Years [...] 2) 2018 Depression Screening 11/14/2024 COVID-19 Vaccine (1 - 2023-2 5 season) 2025 Influenza Vaccine (#1) 2025 RSV Immunization Adult Patie nts (1 - 1-dose 75+ series) 2043 HIB Vaccines Aged Out No longer eligi [...] age to complete this topic Care Teams Chief Dispatcher Relationship Specialty Start Date End Date Mark, MD Ada [address] [place] [address] Dr [address] [facility] [place] Jimenez [address] PCP - General Internal Medicine 08/29/19
--- OUTSIDE RECORDS SUMMARY | 2025-08-15 16:47 | XMS_ITS | Patient Health Record ---
Author Organization [facility] Address [address] [place] [address] Care Team Providers Care Dental Assistant Medical Assistant Name Role Phone Po Ada WILLS Primary [...] Problem Status W/U Status Risk Notes Problem [id number] Rectal bleeding (K62.5) Active confirmed Problem 351506139 Personal history of colonic polyps (Z86.010) Active confirmed Problem 647733063 snf (current) use of non-steroidal anti-inflamma tories (NSAID) (Z79.1) Active confirmed Problem History of polyp of colon (657508289) History of colon polyps (Z86.010) Active confirmed Plan Of Treatment Future Test Test Name Order Date COLONOSCOPY 04/07/2016 COLONOSCOPY 10/29/2021 Insurance Providers Payer Name Payer Address Payer Phone Subscriber Number Group Number Insured Name Patient Relationship to Insured Coverage Start Date Coverage End Date [facility] [address] [place], [place] [id number] LAKSHMI BURLESON Self - patient is the insured Medical (General) History Medical History History ICD Code degenerative joint disease hypertension hx of broken leg Surgical History Surgery Date(Month/Year) pilonidal cyst excision Neck fusion tibula/fibula fractures ganglion cyst
== END 2025-08-15 16:24 | disposition home or self-care (01) ==
LOC: HO.HMCH 15:35
PROVIDERS: PCP Internal Medicine; Visit Provider Internal Medicine
DX: I10 Essential (primary) hypertension (principal); R73.01 Impaired fasting glucose; M51.360 Other intervertebral disc degeneration, lumbar region with discogenic back pain only; F17.210 Nicotine dependence, cigarettes, uncomplicated; R41.0 Disorientation, unspecified; M54.16 Radiculopathy, lumbar region

== ENCOUNTER 2025-08-20 12:37 | Outpatient (REF) | payer BC, SELFPAY ==
--- NOTE | ~2025-08-20 | CT_ITS ---
EXAMINATION: CT LOW-DOSE SCREENING CHEST WITHOUT CONTRAST CLINICAL INFORMATION: 55-year-old male, current smoker, 35 pack years, lung cancer screening. COMPARISON: 07/18/2024, 07/15/2023. TECHNIQUE: Multidetector volumetric CT imaging of the chest is performed on a Siemens SOMATOM Definition scanner without contrast using low dose technique. Additional 2D coronal and sagittal reformatted images and axial 3D maximum intensity projection (MIP) images are generated on the CT workstation. This CT examination was performed using dose optimization techniques as appropriate, variously including the following: *Automated exposure control *Adjustment of mA and/or kV according to patient size (this includes techniques or standardized protocols for targeted exams where dose is matched to indication/reason for exam; i.e. extremities or head) *Use of iterative reconstruction technique FINDINGS: PULMONARY NODULES: 3 mm subpleural nodule in the lateral right upper lobe is unchanged (series 5, image 28). There is no new or enlarging pulmonary nodule present. LUNGS: There is mild centrilobular emphysema. Lungs are well inspired and clear bilaterally. There is mild small airway thickening, consistent with chronic bronchitis. There is a saber-sheath trachea. Central airways are patent. There is no effusion or pneumothorax. MEDIASTINUM: Partially imaged thyroid is normal. There is no lymphadenopathy or mass. Aorta is normal in caliber and course. There is no aneurysm. The main pulmonary artery is normal in caliber. The heart size is normal. There is no pericardial effusion. There is no esophageal abnormality. CORONARY ARTERY CALCIFICATION: None visualized on this study. CHEST WALL/AXILLA: There is no mass or abnormal lymph nodes. UPPER ABDOMEN: Included portions of the solid organs in the upper abdomen unremarkable allowing for low-dose noncontrast technique. OSSEOUS STRUCTURES: No suspicious lytic or blastic bone lesions. CT/CT lung screening IMPRESSION: 1. No suspicious pulmonary nodules present. 2. Mild pulmonary emphysema without active lung disease. 3. Mild small airway thickening suggestive of chronic bronchitis. ASSESSMENT: 1. Lung-RADS Category 2: Benign appearance or behavior of nodules. 2. Lung-RADS Category S: None. RECOMMENDATION: Continued routine annual low-dose CT lung screening in 1 year is recommended. An order for CT CHEST LOW DOSE CANCER SCREENING ([id number]) can be placed. Electronically signed by: Jayce Jones MD 08/20/2025 01:56 PM EDT
--- OUTSIDE RECORDS SUMMARY | 2025-08-20 15:27 | XMS_ITS | Patient Health Record ---
Author Organization [facility] Address [address] [place] [address] Care Team Providers Care Toggler Name Role Phone Po Ada WILLS Primary [...] Problem Status W/U Status Risk Notes Problem [id number] Rectal bleeding (K62.5) Active confirmed Problem 912668027 Personal history of colonic polyps (Z86.010) Active confirmed Problem 911648706 long-term (current) use of non-steroidal anti-inflamma tories (NSAID) (Z79.1) Active confirmed Problem History of polyp of colon (045705215) History of colon polyps (Z86.010) Active confirmed Plan Of Treatment Future Test Test Name Order Date COLONOSCOPY 04/07/2016 COLONOSCOPY 10/29/2021 Insurance Providers Payer Name Payer Address Payer Phone Subscriber Number Group Number Insured Name Patient Relationship to Insured Coverage Start Date Coverage End Date [facility] [address] [place], [place] [id number] [phone] [id number] LAKSHMI BURLESON Self - patient is the insured Medical (General) History Medical History History ICD Code degenerative joint disease hypertension hx of broken leg Surgical History Surgery Date(Month/Year) pilonidal cyst excision Neck fusion tibula/fibula fractures ganglion cyst
--- OUTSIDE RECORDS SUMMARY | 2025-08-20 15:27 | XMS_ITS | Clinical Summary ---
Author Organization [facility] ity Address [address] [place] [id number] Care Team Providers Care District Scout Executive Name Role Phone Ada Flores MD Primary Care Provider [phone] Social History Tobacco Use Types Packs/Day Years [...] age to complete this topic Care Teams District Scout Executive Relationship Specialty Start Date End Date Mark, MD Ada [address] [place] [address] [address] [facility] [place] Jimenez [address] PCP - General Internal Medicine 08/29/19
== END 2025-08-20 12:38 | disposition home or self-care (01) ==
LOC: HO.CT 12:37
PROVIDERS: PCP Internal Medicine; Visit Provider Physician Assistant Medical
DX: Z12.2 Encounter for screening for malignant neoplasm of respiratory organs (principal); F17.210 Nicotine dependence, cigarettes, uncomplicated
CPT/HCPCS: 71271

== ENCOUNTER → 2025-08-20 12:38 | Outpatient (BNV) | payer BC, SELFPAY | PROVIDERS: PCP Internal Medicine; Visit Provider Radiology Diagnostic Radiology | DX: F17.210 Nicotine dependence, cigarettes, uncomplicated (principal) | CPT/HCPCS: 71271 ==

== ENCOUNTER 2025-09-12 12:08 | Outpatient (AMB) | payer BC, SELFPAY ==
[2025-09-12 12:32] VITALS: BP 140/78; PULSE 90; TEMP 36.4; O2SAT 99; BMI 28.3
--- NOTE | 2025-09-12 12:32 | A.OFFPC_ITS ---
Vital Signs 09/12/25 12:32 Height 5 ft 9 in Weight 191 lb 6 oz BMI 28.3 BP 140/78 H Blood Pressure Location Lt brachial Position Sitting Pulse 90 Pulse Source Pulse Oximeter Temp 97.5 F Temp Source Temporal Artery Scan Pulse Oximetry (%) 99 Oxygen Delivery Method Room Air Intake Visit Reasons: Annual Exam Allergies hydrochlorothiazide Allergy (Unknown, Verified 09/12/25 12:35) Rash Medication List - Last Reconciled 09/12/25 by Ada Flores MD blood pressure monitor (Blood Pressure Kit) As directed bupropion HCl SR (Wellbutrin SR) 150 mg PO BID cholecalciferol (vitamin D3) 50 mcg PO DAILY epinephrine (EpiPen 2-Vic) 0.3 mg (0.3 mL) IM Q10M PRN lidocaine 5% 1 patch topical DAILY lisinopril 20 mg PO DAILY 90 days [id number]-[id number]-[id number] mcg (Centrum Silver Men) 1 tab PO DAILY Tobacco use date assessed: 09/12/25 Dental Screening Dental Screen Date: 09/12/25 Did you have a dental visit in the last 12 months?: Yes Did you have a dental problem in the last 6 months where you did not have access to dental care?: No Was dental information given to patient?: Patient has dentist [facility] Medical History Scalp lesion Hand numbness Radicular pain of upper extremity Epigastric pain Hemorrhoids Bleeding hemorrhoids Tubular adenoma of colon Hypertension Nicotine dependence, cigarettes, uncomplicated Bilateral hand numbness Right rib fracture Fracture of right tibia and fibula Degenerative disc disease Vitamin D deficiency Overweight (BMI 25.0-29.9) Surgical History History of cervical spinal surgery History of surgery on lower extremity History of excision of pilonidal cyst History of colonoscopy Family History Mother Lung cancer History of SIADH Father Prostate cancer Sister Auto immune neutropenia Sister No problems noted. Brother Heart attack Daughter No problems noted. Maternal Uncle CAD (coronary artery disease) Social History (Updated 09/12/25 @ 12:42 by Ada Flores MD) Housing: Apartment Alcohol intake: current Alcohol intake frequency: holidays/special occasions only Comment: 2-3 a day2-3 x a week Patient Tobacco Use Status: Current everyday Tobacco user Tobacco use type: Cigarette Cigarettes Per Day: 15 Years Smoked: onset 20yo, 1ppd x 33yrs, 30pyh (3/4 pack a day). 13-16 cigarettes a day e-Cigarette/Vaping Use: Never Used Second Hand Smoke Exposure: Yes Substance Use Type: Marijuana service: No Current occupational status: employed Cognitive needs: No Hearing needs: No Vision needs: No Questionnaire PHQ-9 Over the last 2 weeks, how often have you been bothered by any of the following problems? 1. Little interest or pleasure in doing things: several days 2. Feeling down, depressed, or hopeless: several days 3. Trouble falling or staying asleep, or sleeping too much: not at all 4. Feeling tired or having little energy: not at all 5. Poor appetite or overeating: several days 6. Feeling bad about yourself - or that you are a failure or have let yourself or your family down: not at all 7. Trouble concentrating on things, such as reading the newspaper or watching television: not at all 8. Moving or speaking so slowly that other people could have noticed. Or the opposite - being so fidgety or restless that you have been moving around a lot more than usual: not at all 9. Thoughts that you would be better off or of hurting yourself in some way: not at all Total score: 3 Source: Developed by Drs. Riley Fair, Miracle Ruiz, Bear Donato and colleagues, with an educational mani from [email or web address]. Thrive Questionnaire Date Thrive assessed: 08/14/25 I am a: Patient What is your living situation today?: I have a steady place to live Within the past 12 months, did the food you bought not last and you didn't have the money to get more?: Never true Within the past 12 months, did you worry whether your food would run out before you got money to buy more?: Never true Do you have trouble paying for medicines?: No Do you have trouble getting transportation to medical appointments?: No Do you have trouble paying your heating and electricity bill?: No Do you have trouble taking care of your child, family member or friend?: No Do you have trouble with day-to-day activities such as bathing, preparing meals, shopping, managing finances, etc.?: Yes Are you currently unemployed and looking for a job?: No Are you interested in more education?: No Please select the resources that you would like help with: None Currently or been in a relationship where the following occur: No concerns reported THRIVE Score: 0 AUDIT C Alcohol Use Questionnaire (AUDIT-C) 1. How often do you have a drink containing alcohol?: 2-3 times a week 2. How many drinks containing alcohol do you have on a typical day when you are drinking?: 3 or 4 3. How often do you have six or more drinks on one occasion?: Never Total Score: 4 SHALONDA-7 AMB Questionnaire SHALONDA-7 Date SHALONDA - 7 assessed: 03/07/25 Feeling nervous, anxious, or on edge: 2 = More than half the days Not being able to stop or control worryin = Several days Worrying too much about different things: 1 = Several days Trouble relaxin = Several days Being so restless that it is hard to sit still: 1 = Several days Becoming easily annoyed or irritable: 1 = Several days Feeling afraid as if something awful might happen: 1 = Several days Total SHALONDA-7 score (0-4 normal; 5-9 mild; 10-14 moderate; 15-21 severe): 8 Source: Developed by Drs. Riley Fair, Miracle Ruiz, Bear Donato and colleagues, with an educational mani from [email or web address]. Review of Systems Const Denies poor appetite and Denies weakness Eyes Denies no additional complaints ENT Reports Normal hearing present, Denies dizziness, Denies nasal congestion, Denies tinnitus and Denies sore throat Card Denies chest pain, Denies syncope, Denies rapid heart rate and Denies dyspnea Resp Denies cough and Denies dyspnea GI Denies change in stool character, Reports constipation, Denies diarrhea, Denies nausea and Denies vomiting Denies dysuria and Denies urinary frequency Neuro Reports Normal hearing present, Denies confusion, Denies dizziness, Denies syncope and Denies weakness Psych Denies confusion Physical exam (Primary Care) Vital Signs: Last Vital Signs Temp 97.5 F 09/12/25 12:32 Pulse 90 09/12/25 12:32 BP 140/78 H 09/12/25 12:32 Pulse Ox 99 09/12/25 12:32 Oxygen Delivery Method Room Air 09/12/25 12:32 BMI result Body Mass Index 28.3 Tobacco/Smoking Status: Tobacco use Status Tobacco use date assessed 09/12/25 09/12/25 12:35 Patient Tobacco Use Status Current everyday Tobacco 09/12/25 12:42 Tobacco use type Cigarette 09/12/25 12:42 e-Cigarette/Vaping Use Never Used 09/12/25 12:42 PHQ-9: PHQ-9 Score PHQ-9: Total score 3 09/12/25 12:35 Thrive Assessment: Date of Thrive Assessment Date Thrive assessed 08/14/25 09/12/25 12:35 Currently or been in a relationship where the following occur: No concerns reported Const General: No confusion Orientation/consciousness: No confusion HENMT Head: Yes normocephalic Ears: external ears normal and TM's normal bilaterally Face and sinus: Yes normal facial exam Mouth: moist mucous membranes Throat: Yes tonsils normal Eyes Conjunctivae: conjunctivae normal Pupils: Equal, round and reactive pupils present and Pupil accommodation reflex normal Direct Ophthalmoscopy: normal light reflex Neck Neck: No lymphadenopathy Thyroid: Thyroid normal Chest Chest palpation & inspection: normal inspection of the chest Resp Effort & Inspection: normal respiratory effort and no audible wheezes Auscultation: clear to auscultation bilaterally, no crackles, no wheezes and lung sounds not diminished Cardio Rate: regular rate Rhythm: regular rhythm Peripheral pulses: radial pulses present and dorsalis pedis present GI Palpation (GI): no masses Auscultation: normal bowel sounds and normoactive bowel sounds Rectal Exam - Male: Yes deferred Skin General skin exam: no rashes or lesions noted Rashes: no rashes Neuro General: No confusion Cranial nerves: Yes Equal, round and reactive pupils present and Yes Normal hearing present Cognition (Neuro): normal cognition Gait exam (Neuro): Normal gait present Motor exam (neuro): 5/5 motor strength present throughout Deep tendon reflexes (DTR's): Right brachioradialis reflex intensity grade: 2+, Left brachioradialis reflex intensity grade: 2+, Right patellar reflex intensity grade: 2+ and Left patellar reflex intensity grade: 2+ Extrem General: No edema Coding Level of Care Code Est Pt Prev Care 40-64y(29941) Diagnoses Annual physical exam Z00.00 Nicotine dependence, cigarettes, uncomplicated F17.210 Lumbar degenerative disc disease M51.36 Primary hypertension I10 Hypertension type: primary hypertension Impaired fasting blood sugar R73.01 Generalized anxiety disorder F41.1 Confusion R41.0 Assessment & Plan Assessment & Plan (1) Annual physical exam: Code(s): Z00.00 - Encounter for general adult medical examination without abnormal findings Category: Medical Plan: Patient is advised to eat healthy, keep well hydrated, keep active and have adequate sleep. (2) Nicotine dependence, cigarettes, uncomplicated: Comment: (current smoker - onset 20yo, 1ppd x 34yrs, 30pyh, + fam hx lung CA mom) 08/03/2024 lung cancer screening program July 2024 last CAT scan Code(s): F17.210 - Nicotine dependence, cigarettes, uncomplicated Category: Medical Plan: Patient is strongly advised to stop smoking! (3) Lumbar degenerative disc disease: Code(s): M51.36 - Other intervertebral disc degeneration, lumbar region Category: Medical Plan: Keep active (4) Hypertension: Code(s): I10 - Essential (primary) hypertension Category: Medical Qualifiers: Hypertension type: primary hypertension Qualified Code(s): I10 - Essential (primary) hypertension Plan: Continue with blood pressure medication. Decrease salt intake and exercise on lisinopril 20 mg once a day (5) Impaired fasting blood sugar: Code(s): R73.01 - Impaired fasting glucose Category: Medical Plan: Decrease the amount of carbohydrate intake, pasta, bread, rice and potatoes are all sugar and that is aside from all the sweet stuff, remember that fruits are good but they are Sweet also. (6) Generalized anxiety disorder: Code(s): F41.1 - Generalized anxiety disorder Category: Medical Plan: Continue with present medications (7) Confusion: Code(s): R41.0 - Disorientation, unspecified Category: Medical Plan: CT scan is pending Plan History of Present Illness The patient is a 55-year-old male presenting for an annual physical exam. His past medical history is significant for lumbar degenerative disc disease, generalized anxiety disorder, tobacco use, impaired glucose tolerance, and hypertension. He was last seen on August 15, 2025. He was recently seen for an episode of confusion, for which a head CT scan was ordered but has not yet been completed. The CT scan is scheduled for September, and an MRI is scheduled for the upcoming Tuesday. Due to his history of smoking, a chest CT scan was performed, which showed mild emphysema but no suspicious pulmonary nodules. Recent blood work from August 10 was normal, showing no anemia, normal electrolytes, and good renal and liver function. His blood sugar, B12, folic acid, and thyroid levels were also within normal limits. A cholesterol panel from August 01 showed an LDL of 115 mg/dL. The patient's last colonoscopy was in 2021. Current medications include Wellbutrin 150 mg twice daily, lisinopril 20 mg daily, vitamin D, and Centrum Silver. He has discontinued Valium and occasionally uses an flda-spy-amaabit patch for pain. He has a known allergy to hydrochlorothiazide. The patient reports persistent back tenderness and neck pain, though his back mobility has improved, allowing him to bend and tie his shoes. Family history is positive for lung cancer in his mother, prostate cancer in his father, and heart problems in his brother and uncle. He reports having received the two-part shingles vaccine. Health Maintenance A discussion was held regarding the shingles vaccine, which the patient confirmed he has already received. He was advised to remain physically active. No new blood work is needed at this time, as recent labs were normal. Social History - Tobacco Use: Patient is a current smoker, consuming 13-16 cigarettes per day, having cut back from a previous amount. - Alcohol Use: Drinks socially 2-3 times per week, with about 2-3 drinks per occasion. - Substance Use: Uses marijuana approximately once a week to manage neck pain. - Physical Activity: He has been advised to remain active. - Family History: His mother had lung cancer, his father had prostate cancer, and his brother and uncle have a history of heart problems. Review of Systems - General: Denies fevers. - HEENT: Reports intermittent itching of the left eyelid and occasional burning sensation above the eyebrow in the shower. - Denies dizziness, hearing problems, or dysphagia. - Cardiovascular: Denies chest pain, heaviness, or discomfort. - Respiratory: Denies waking up short of breath. - Gastrointestinal: Reports occasional heartburn that does not require medication. - Bowel movements are reported as relatively good. - Denies nausea or vomiting. - Genitourinary: Reports nocturia, waking up to urinate up to twice a night. - Denies other urinary problems. - Musculoskeletal: Reports his back is shredder tender peat and his neck has been bothering him. Physical Exam General: Cooperative, healthy appearing, comfortable, no acute distress and well developed Orientation: Patient oriented x3 Limitations: No limitations Head: Normal to inspection Ears: Hearing grossly normal bilaterally Nose: Normal external nose present Face and sinus: Normal facial exam Eyes: Appearance normal, both eyes and all related structures Neck: Normal visual inspection and Yes full ROM Respiratory: Normal respiratory effort and able to speak in complete sentences. Clear to auscultation bilaterally Cardiovascular: Regular rate and rhythm. Normal S1 and S2 GI: Normal to inspection. Soft to palpation and nontender Skin: No rashes or lesions noted Neuro: Patient oriented x3 Extremities: Normal to inspection Results - Labs (August 10): Complete blood count showed no anemia. - Electrolytes, renal function, blood sugar, and liver function tests were all normal. - B12, folic acid, and thyroid studies were within normal limits. - Labs (August 01): LDL cholesterol was 115 mg/dL. - Imaging (Chest CT): Revealed mild emphysema with no suspicious pulmonary nodules. - Imaging (Head CT): A pending study that has been requested. Plan Patient was informed and verbally consented to the use of an ambient scribe for clinic note documentation during this visit. 1. Essential (Primary) Hypertension The patient's blood pressure was in the 140s during the visit. He will continue his current medication, lisinopril 20 mg once daily. He has been instructed to monitor his blood pressure at home. 2. Tobacco Use Disorder The patient continues to smoke, though he reports having cut back to 13-16 cigarettes per day. He was strongly advised to stop smoking. 3. Lumbar Degenerative Disc Disease The patient reports ongoing back tenderness and neck pain. He uses an wokq-xox-sejlfip patch for pain relief. 4. Generalized Anxiety Disorder The patient is on Wellbutrin 150 mg twice a day. He reports he is no longer taking Valium. 5. Impaired Glucose Tolerance The plan is to continue with present management for his prediabetes. 6. Confusion, Unspecified The patient was recently seen for confusion. A CT scan of the head has been ordered and is scheduled for September, and an MRI is scheduled for the upcoming Tuesday. Will follow up on the results of the imaging. 7. Itchy Eyelid The patient complained of an itchy left eyelid. Examination did not reveal a stye or other abnormality. The patient was counseled on eyelid hygiene, including washing the eyelid with a no-tear baby shampoo to prevent blocked oil glands. Discussion Notes I advised the patient to monitor his blood pressure at home, as his in-office reading was in the 140s, and we do not like to see readings that high. I strongly advised him to stop smoking. Regarding his itchy eyelid, I explained that styes are caused by blocked oil glands at the base of the eyelashes and can sometimes be triggered by allergies. I recommended he could try washing his closed eyelids with a no-tear baby shampoo to help prevent this. We discussed the shingles vaccine as a preventative measure for a painful viral condition that can occur when the immune system is stressed or compromised. I explained that the virus remains dormant in a nerve after a chickenpox infection and can reactivate later in life, causing a painful rash. The patient then informed me he has already completed the two-shot series. We confirmed that the head CT scan is still pending for his recent episode of confusion, and I will follow up on those results. Patient Instructions - It is very important that you work on quitting smoking. - Continue taking Lisinopril 20 mg once a day for your blood pressure. - Please check your blood pressure at home. - We want to avoid readings of 140 or 90. - For your itchy eyelid, you can try gently washing your eyelids with a no-tear baby shampoo while in the bath or shower. - Please proceed with your scheduled CT scan in September and your MRI on Tuesday. - Keep up with an active lifestyle. - You do not need any new blood work at this time.
--- OUTSIDE RECORDS SUMMARY | 2025-09-12 15:04 | XMS_ITS | Patient Health Record ---
Author Organization [facility] Address [address] [place] [address] Care Team Providers Care Technical Analyst Name Role Phone Po Ada WILLS Primary [...] at 5:00 p.m. the day before the procedure; Duration: 1 day 10/29/2021 Active Lisinopril 5 MG Oral; Duration: 90 Active Vitamin D Active Multivitamin Active Ibuprofen 200 [...] Problem Status W/U Status Risk Notes Problem Rectal bleeding (86804643) Rectal bleeding (K62.5) Active confirmed Problem History of polyp of colon (situation) (562984190) Personal history of colonic polyps (Z86.010) Active confirmed Problem [facility] current use of non-steroidal anti-inflammat ory drug (8951410754836 03) long term (current) use of non-steroidal anti-inflammat ories (NSAID) (Z79.1) Active confirmed Problem History of polyp of colon (situation) (186378483) History of colon polyps (Z86.010) Active confirmed Plan Of Treatment Future Test Test Name Order Date COLONOSCOPY 04/07/2016 COLONOSCOPY 10/29/2021 Insurance Providers Payer Name Payer Address Payer Phone Subscriber Number Group Number Insured Name Patient Relationship to Insured Coverage Start Date Coverage End Date [facility] [address] [place], [place] [id number] LAKSHMI BURLESON Self - patient is the insured Medical (General) History Medical History History ICD Code degenerative joint disease hypertension hx of broken leg Surgical History Surgery Date(Month/Year) pilonidal cyst excision Neck fusion tibula/fibula fractures ganglion cyst
== END 2025-09-12 12:57 | disposition home or self-care (01) ==
LOC: HO.HMCH 12:09
PROVIDERS: PCP Internal Medicine; Visit Provider Internal Medicine
DX: Z00.00 Encounter for general adult medical examination without abnormal findings (principal); F17.210 Nicotine dependence, cigarettes, uncomplicated; M51.369 Other intervertebral disc degeneration, lumbar region without mention of lumbar back pain or lower extremity pain; I10 Essential (primary) hypertension; R73.01 Impaired fasting glucose; F41.1 Generalized anxiety disorder; R41.0 Disorientation, unspecified

== ENCOUNTER → 2025-09-16 18:31 | Outpatient (BNV) | payer BC, SELFPAY | PROVIDERS: PCP Internal Medicine; Visit Provider Radiology Diagnostic Radiology | DX: M54.16 Radiculopathy, lumbar region (principal) | CPT/HCPCS: 72148 ==

== ENCOUNTER 2025-09-16 18:40 | Outpatient (REF) | payer BC, SELFPAY ==
--- NOTE | ~2025-09-16 | MR_ITS ---
EXAMINATION: MR LUMBAR SPINE WITHOUT CONTRAST CLINICAL INFORMATION: M 54.16. Radiculopathy, lumbar region. COMPARISON: September 03, 2021. TECHNIQUE: MRI of the lumbar spine was obtained using routine sequences without contrast. FINDINGS: Last rib-bearing vertebra labeled T12. Left-sided prominent transverse processes of L5 articulating with S1. Bone marrow inhomogeneity. Multilevel marginal osteophyte formation, endplate irregularity, decreased intervertebral disc height and signal. Multilevel Schmorl nodes. Focal 6 mm hyperintense STIR signal in the posterior spinous processes of L3. Grade 1 retrolisthesis L2-3 and L4-5. Grade 1 anterolisthesis L3-4. Levoconvex rotoscoliosis apex at L2-3. Conus medullaris ends at pedicle of T12 with normal signal. T11-12: Broad-based disc bulging. Facet joint and ligamentum flavum hypertrophy. Reduced AP diameter of the thecal sac. T12-L1: Left subarticular disc herniation resulting in ventral indentation to the thecal sac. Bilateral facet joint hypertrophy. Reduced AP diameter of the thecal sac. No neuroforamina stenosis. L1-2: Broad-based disc bulging. Facet joint and ligamentum flavum hypertrophy. Reduced AP diameter of the thecal sac. Left neuroforamina narrowing. L2-3: Broad-based disc bulging. Facet joint and ligamentum flavum hypertrophy. CSF effacement of thecal sac and the ventral aspect reduced AP diameter of the thecal sac and bilateral neuroforamina narrowing. There is encroachment of the neural elements. L3-4: Broad-based disc bulging. Facet joint and ligamentum flavum hypertrophy producing the AP diameter of the thecal sac and neuroforamina likely encroaching the neural elements. L4-5: Broad-based disc bulging. Facet joint and ligamentum flavum hypertrophy producing the AP diameter of the thecal sac and neuroforamina likely encroaching the neural elements. L5-S1: Broad-based disc bulging. Facet joint hypertrophy. No gross central spinal canal stenosis. Bilateral neuroforamina narrowing. No prevertebral compartment hematoma, mass or fluid collection. Asymmetric of the psoas muscle with mild volume loss suggesting mild atrophy secondary to denervation MR/MR lumbar spine wo con IMPRESSION: Multilevel thoracolumbar spondylosis and levoconvex scoliosis apex at L2-3 resulting in grade 1 retrolisthesis L2-3 and L4-5 and grade 1 anterolisthesis L3-4 causing Central spinal canal and bilateral neuroforamina stenosis from L2-3 to L4-5 encroaching the neural elements. 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 Osteopenia versus osteoporosis. Electronically signed by: Servando Alford MD 09/17/2025 06:42 AM DOMI
--- OUTSIDE RECORDS SUMMARY | 2025-09-16 18:48 | XMS_ITS | Clinical Summary ---
Author Organization [facility] Address [id number] [place] [id number] Care Team Providers Care Electronic Service Technician Name Role Phone Ada Flores MD Primary Care Provider [phone] Social History Tobacco Use Types Packs/Day Years [...] age to complete this topic Care Teams Electronic Service Technician Relationship Specialty Start Date End Date Mark, MD Ada [address] [place] [address] Dr [address] [facility] EU[place]E Jimenez [id number] PCP - General Internal Medicine 08/29/19
--- OUTSIDE RECORDS SUMMARY | 2025-09-16 18:48 | XMS_ITS | Patient Health Record ---
Author Organization [facility] Address [address] [place] [address] Care Team Providers Care Neurodiagnostic Tech Name Role Phone Po Ada WILLS Primary [...] W/U Status Risk Notes Problem Rectal bleeding (18916236) Rectal bleeding (K62.5) Active confirmed Problem History of polyp of colon (situation) (218675552) Personal history of colonic polyps (Z86.010) Active confirmed Problem halfway current use of non-steroidal anti-inflammat ory drug (4163808926487 03) rat exterminator (current) use of non-steroidal anti-inflammat ories (NSAID) (Z79.1) Active confirmed Problem History of polyp of colon (situation) (979786731) History of colon polyps (Z86.010) Active confirmed Plan Of Treatment Future Test Test Name Order Date COLONOSCOPY 04/07/2016 COLONOSCOPY 10/29/2021 Insurance Providers Payer Name Payer Address Payer Phone Subscriber Number Group Number Insured Name Patient Relationship to Insured Coverage Start Date Coverage End Date [facility] [address] [place], [place] [id number] [phone] [id number] LAKSHMI BURLESON Self - patient is the insured Medical (General) History Medical History History ICD Code degenerative joint disease hypertension hx of broken leg Surgical History Surgery Date(Month/Year) pilonidal cyst excision Neck fusion tibula/fibula fractures ganglion cyst
== END 2025-09-16 18:41 | disposition home or self-care (01) ==
LOC: HO.MRI 18:40
PROVIDERS: PCP Internal Medicine; Visit Provider Internal Medicine
DX: M54.16 Radiculopathy, lumbar region (principal)
CPT/HCPCS: 72148

== ENCOUNTER 2025-10-14 16:19 | Outpatient (REF) | payer BC, SELFPAY ==
--- NOTE | ~2025-10-14 | CT_ITS ---
EXAMINATION: CT HEAD WITHOUT CONTRAST CLINICAL INFORMATION: R41.0 - Disorientation, unspecified COMPARISON: None available. TECHNIQUE: Contiguous axial imaging was performed from the skull base to vertex without intravenous administration of contrast. This CT examination was performed using dose optimization techniques as appropriate, variously including the following: *Automated exposure control *Adjustment of mA and/or kV according to patient size (this includes techniques or standardized protocols for targeted exams where dose is matched to indication/reason for exam; i.e. extremities or head) *Use of iterative reconstruction technique FINDINGS: There is no acute ischemic change. There is no intracranial hemorrhage. There is no mass-effect or midline shift. Basal cisterns and ventricles are within normal limits for age/cerebral volume. Orbits are symmetrical and unremarkable. Paranasal sinuses and mastoid air cells are pneumatized. There are no bony abnormalities. CT/CT head/brain wo IV con IMPRESSION: No acute intracranial abnormality. Electronically signed by: Jose Monroe MD 10/14/2025 05:22 PM [facility]
--- OUTSIDE RECORDS SUMMARY | 2025-10-14 18:43 | XMS_ITS | Clinical Summary ---
Author Organization [facility] ity Address [id number] [place] [id number] Care Team Providers Care Commission Clerk Name Role Phone Ada Flores MD Primary Care Provider [phone] Social History Tobacco Use Types Packs/Day Years [...] Depression Screening 11/14/2024 COVID-19 Vaccine ( - 2024-2 6 season) 2025 Influenza Vaccine (#1) 2025 RSV [...] age to complete this topic Care Teams Commission Clerk Relationship Specialty Start Date End Date Mark, MD Ada [address] [place] [address] Dr [address] [facility] [place] Jimenez [id number] PCP - General Internal Medicine 08/29/19
== END 2025-10-14 16:20 | disposition home or self-care (01) ==
LOC: HO.CT 16:19
PROVIDERS: PCP Internal Medicine; Visit Provider Internal Medicine
DX: R41.0 Disorientation, unspecified (principal)
CPT/HCPCS: 70450

== ENCOUNTER → 2025-10-14 16:21 | Outpatient (BNV) | payer BC, SELFPAY | PROVIDERS: PCP Internal Medicine; Visit Provider Radiology Diagnostic Radiology | DX: R41.0 Disorientation, unspecified (principal) | CPT/HCPCS: 70450 ==